=== PATIENT | male | born 1955 | race Caucasian/White ===

== ENCOUNTER → 2018-07-30 15:09 | Outpatient (CLI) | payer OTHER, SELFPAY ==
--- NOTE | 2018-07-30 | DI.RAD.S_ITS ---
PROCEDURE: XR KNEE LT 1TO2V INDICATIONS: LEFT KNEE PAIN TECHNIQUE: 3 .views of the knee were acquired. COMPARISON: [facility] [place], CR, KNEE SERIES RT, 07/30/2016, 7:58. FINDINGS: Bones: No fractures or dislocations. No suspicious bony lesions. Soft tissues: No joint effusion. No suspicious soft tissue calcifications. IMPRESSION: No definite radiographic abnormality. If pain persists, consider cross sectional imaging such as CT or MRI for further assessment. Dictated by: Markus Blue [facility] Interpreted: Claudine Caro MD on 07/30/2018 at 15:28 Approved by: Claudine Caro MD, PhD on 07/30/2018 at 17:07
== END ==
PROVIDERS: Family Provider Internal Medicine; PCP Internal Medicine; Visit Provider Internal Medicine
DX: M25.562 Pain in left knee (principal)
CPT/HCPCS: 73560

== ENCOUNTER → 2018-09-08 08:39 | Outpatient (CLI) | payer OTHER, SELFPAY ==
--- NOTE | 2018-09-08 | DI.MRI.S_ITS ---
PROCEDURE: MR KNEE LT WO CON INDICATIONS: Pain in left knee TECHNIQUE: Noncontrast sagittal PD fast spin echo and T2 fast spin echo with fat saturation, sagittal 3-D FLASH with fat saturation; coronal T1 spin echo and PD fast spin echo with fat saturation, and axial PD fast spin echo with fat saturation through the knee. COMPARISON: [facility], CR, XR KNEE LT 1TO2V, 07/30/2018, 15:18. [facility], CR, XR KNEE ARTHRITIC SERIES LT, 09/01/2018, 8:39. FINDINGS: Image quality: Excellent. Menisci: There is horizontal tear in the body and posterior horn of the medial meniscus. The lateral meniscus demonstrates normal morphology and internal signal. The meniscal root ligaments appear intact. Cruciate ligaments: There is mucoid degeneration of the anterior cruciate ligament. The posterior cruciate ligaments appears intact. Medial structures: The medial collateral ligament appears intact. The posterior oblique ligament, semimembranosus tendon insertions, oblique popliteal ligament, and meniscocapsular junction appear intact. Visualized portions of the pes anserinus tendons appear normal. No abnormal bursal fluid. Lateral structures: The lateral collateral ligament, long and short heads of the biceps femoris tendon appear intact. The popliteus tendon appears normal; the popliteofibular ligament appears intact. The posterosuperior and anteroinferior popliteomeniscal fascicles appear intact. The arcuate and fabellofibular ligaments appear intact, on either side of the lateral inferior geniculate artery. Iliotibial band appears normal. Anterior structures: The quadriceps and patellar tendons appear intact. Patellar alignment is normal. No femoral trochlear dysplasia or ventral trochlear prominence. No edema in the infrapatellar fat pad. Bones and cartilage: No bone marrow contusions or fractures. Mild tricompartmental cartilage thinning and signal degeneration. No full thickness cartilage fissures. Joint space: There is physiologic knee joint fluid. There is a moderate-sized Flores's cyst. Normal appearing synovial plicae are incidentally noted. IMPRESSION: 1. Horizontal tear involving in the body and posterior horn of the medial meniscus. 2. Mucoid degeneration of the anterior cruciate ligament. 3. Mild tricompartmental cartilage thinning and fibrillation. 4. Moderate sized Flores's cyst. Dictated by: Doug Martínez M.D. on 09/08/2018 at 10:10 Approved by: Doug Martínez M.D. on 09/08/2018 at 13:28
== END ==
PROVIDERS: PCP Internal Medicine; Visit Provider Orthopaedic Surgery
DX: M25.562 Pain in left knee (principal); S83.242A Other tear of medial meniscus, current injury, left knee, initial encounter; M71.22 Synovial cyst of popliteal space [Baker], left knee
CPT/HCPCS: 73721

== ENCOUNTER → 2019-01-20 11:39 | Outpatient (CLI) | payer OTHER, SELFPAY ==
--- NOTE | 2019-01-20 | DI.US.S_ITS ---
PROCEDURE: US ABDOMEN LIMITED INDICATIONS: EPIGASTRIC PAIN TECHNIQUE: Real-time focused scanning was performed of the abdomen, with image documentation. COMPARISON: [facility], US, ABDOMEN COMPLETE, 07/16/2016, 7:22. FINDINGS: Liver is diffusely increased in echogenicity. No focal hepatic abnormalities identified. Normal hepatic size. Predominantly simple hepatic cyst again seen within the left lobe liver with mild wall irregularity increased in size measuring 9.4 x 6.9 x 9.0 cm compared to 6.4 x 5.7 x 7.4 cm on prior examination. 1.6 cm simple cyst seen within the inferior right hepatic lobe. No gallstones identified. Normal gallbladder wall. No pericholecystic fluid. Negative sonographic Riddle sign. No biliary dilatation. Pancreas not visualized. IMPRESSION: 1. Increased hepatic echogenicity noted possibly related to hepatic steatosis but other sources of hepatocellular disease cannot be excluded. Recommend clinical correlation. 2. Increase in size of predominantly simple cyst within the left hepatic lobe with mild wall irregularity likely related to biliary radicles now measuring up to 9.4 cm. 3. 1.6 cm simple cyst within the inferior right hepatic lobe. Dictated by: Markus MARTÍNEZ Interpreted: Joe Wolff MD on 01/20/2019 at 13:05 Approved by: Joe Wolff M.D. on 01/20/2019 at 16:14
[2019-01-20 12:09] LABS: Add Manual Diff / Slide Review NO; Basophils Absolute Auto 100 /uL (0-100); Basophils Percent Auto 1.1 % (0-2); Eosinophils Absolute Auto 300 /uL (0-450); Eosinophils Percent Auto 4.7 % (2-4); Hematocrit 45.4 % (41-53); Hemoglobin 15.5 g/dL (13.5-17.5); Lymphocytes Absolute Auto 1500 /uL (1100-4500); Lymphocytes Percent Auto 25.5 % (25-40); Mean Corpuscular HGB Conc 34.1 % (30-36); Mean Corpuscular Hemoglobin 29.9 PG (26-34); Mean Corpuscular Volume 87.7 fL (80-100); Monocytes Absolute Auto 500 /uL (0-900); Monocytes Percent Auto 7.9 % (3-14); Neutrophils Absolute Auto 3500 /uL (1500-7000); Neutrophils Percent Auto 60.8 % (50-75); Platelet Count 164 X10^3/uL (150-400); Red Blood Cell Count 5.17 X10^6/uL (4.5-5.9); Red Cell Distribution Width 13.8 % (11.6-14.8); White Blood Cell Count 5.8 X10^3/uL (4.5-11.0)
[2019-01-20 12:18] LABS: Alanine Aminotransferase 69 IU/L (21-72); Alkaline Phosphatase 104 U/L (38-126); Aspartate Aminotransferase 43 IU/L (17-59); BUN Creatinine Ratio 15.5 (6-22); Bilirubin Total 0.7 mg/dL (0.2-1.3); Blood Urea Nitrogen 17 mg/dL (9-20); Calcium 9.8 mg/dL (8.4-10.2); Carbon Dioxide 31 mmol/L (22-32); Chloride 102 mmol/L (98-107); Estimated Glomerular Filt Rate > 60.0 mL/min (>60); Glucose 103 mg/dL (80-110); HEMOLYSIS < 15 (0-50); Lipase 89 U/L (23-300); Potassium 3.9 mmol/L (3.4-5.1); Sodium 141 mmol/L (137-145)
== END ==
PROVIDERS: PCP Internal Medicine; Visit Provider Internal Medicine
DX: R10.13 Epigastric pain (principal); K76.89 Other specified diseases of liver
CPT/HCPCS: 36415; 76705; 80048; 82247; 83690; 84075; 84450; 84460; 85025

== ENCOUNTER → 2019-03-04 15:36 | Outpatient (CLI) | payer OTHER, SELFPAY ==
[2019-03-04 17:35] LABS: Prostate Specific Antigen 1.99 ng/mL (0.10-4.00)
== END ==
PROVIDERS: Family Provider Internal Medicine; PCP Internal Medicine; Visit Provider Urology
DX: N40.1 Benign prostatic hyperplasia with lower urinary tract symptoms (principal)
CPT/HCPCS: 36415; 84153

== ENCOUNTER → 2020-03-15 09:04 | Outpatient (CLI) | payer MEDICARE, OTHER, SELFPAY ==
[2020-03-16 09:32] LABS: COVID19 Sendout Not Detected (Not Detect)
== END ==
PROVIDERS: Family Provider Internal Medicine; PCP Nurse Practitioner Family; Visit Provider Physician Assistant
DX: Z11.59 Encounter for screening for other viral diseases (principal)
CPT/HCPCS: 87635

== ENCOUNTER 2020-03-20 07:28 | Emergency (ER) | payer MEDICARE, OTHER, SELFPAY ==
[2020-03-20 07:37] VITALS: BP 147/99; PULSE 60; RESP 19; TEMP 36.3; O2SAT 95; BMI 41.9
--- NOTE | 2020-03-20 08:13 | ED_ITS ---
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 He says 2 nights ago he was actually lying in bed when he felt something fall into his eye. He thought it was an eyelash. He actually irrigated out with a whole L of saline initially got better and then started becoming irritated again he irrigated it out again. He feels like something is up under his eyelid any is unable to invert his eyelid himself. He denies any photosensitivity node blurry vision or double vision. He wears reading glasses. MD chief complaint: eye pain and eye redness Onset (ago): day(s) Onset description: sudden Duration: constant Location: right eye Eye Symptoms: redness and foreign body sensation Related Data Home Medications Medication Instructions Recorded Confirmed alfuzosin 10 mg PO QDAY #0 07/02/16 10/01/18 atorvastatin [Lipitor] 20 mg PO HS #0 07/02/16 10/01/18 diphenhydramine HCl [Benadryl 25 mg PO QHS #0 07/02/16 10/01/18 Allergy] omeprazole 20 mg PO QDAY #0 07/02/16 10/01/18 losartan 100 1 tab PO DAILY 03/31/18 10/01/18 mg-hydrochlorothiazide 25 mg tablet Resmed Airsense 10 CPAP #1 ea 10/01/18 10/01/18 Allergies Allergy/AdvReac Type Severity Reaction Status Date / Time No Known Drug Allergies Allergy Unverified 03/15/20 09:02 Review of Systems Review of Systems ROS Unobtainable: All systems reviewed & are unremarkable except as noted in HPI and below Constitutional Constitutional: Denies chills, Denies fever(s), Denies lethargy and Denies weakness Eyes Eyes: Reports as per HPI, Denies blind spots, Denies blurry vision, Denies exophthalmos, Denies change in vision, Denies loss of peripheral vision and Denies photophobia Cardiovascular Cardiovascular: Denies chest pain, Denies irregular heart rhythm, Denies lightheadedness, Denies palpitations, Denies dyspnea, Denies dyspnea on exertion and Denies orthopnea Respiratory Respiratory: Denies cough, Denies dyspnea, Denies dyspnea on exertion and Denies wheezing Gastrointestinal Gastrointestinal: Denies abdominal pain, Denies change in bowel habits, Denies diarrhea, Denies nausea and Denies vomiting Musculoskeletal Musculoskeletal: Denies back pain and Denies muscle weakness Integumentary/Breasts Skin/Breast: Denies pruritus, Denies erythema, Denies rash and Denies wounds Neurologic Neurologic: Denies weakness Endocrine Endocrine: Denies palpitations Allergic/Immunologic Allergic/Immunologic: Denies wheezing Patient History Medical History Cephalgia (Inactive) Corneal abrasion, left (Inactive) Dehydration (Inactive) Febrile illness (Inactive) Hypertension (Chronic) Left knee pain (Acute) Obesity (BMI 30-39.9) (Chronic) Obstructive sleep apnea of adult (Chronic) Rhinitis, nonallergic, chronic (Chronic) Sinusitis (Inactive) Snoring (Inactive) Surgical History Meniscus degeneration (Acute) Social History marital status: details: tru Ramirez, lives in [place] household members: spouse lives independently: Yes caregiver/support person: No housing: house education level: other 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 HEENT: Head atraumatic,EOMI, pupils reactive, face symmetric, moist mucous membranes EYES: EOMI, NEETA Right eye was treated with proparacaine, stained with fluorescein. No dye uptake. No foreign body. Eyelid was inverted no foreign body seen. Irrigated with normal saline flush CARDIOVASCULAR: Regular rate and rhythm without murmurs, rubs or gallops. RESPIRATORY: Breath sounds equal bilaterally, no wheezes rales or rhonchi. EXTREMITIES: Normal range of motion, no clubbing or edema. Neurovascularly intact NEUROLOGICAL: Alert and oriented x4.Normal gait and speech. SKIN: Warm, dry, no laceration, no petechiae, no rashes or lesions. Course Orders Ordered: Discontinued Medications Fluorescein Sodium (Ful-Karyn) 1 mg EYE-BOTH NOW ONE Stop: 03/20/20 08:14 Last Admin: 03/20/20 08:19 Dose: 1 mg Documented by: DAVID Proparacaine HCl (Parcaine 0.5% Ophth Adriana) 1 drops EYE-LEFT NOW ONE Stop: 03/20/20 08:14 Last Admin: 03/20/20 08:19 Dose: 1 drop Documented by: DAVID Vital Signs Vital signs: Vital Signs - 8 hr 03/20/20 07:37 Temperature 97.4 F L Pulse Rate 60 Respiratory Rate 19 Blood Pressure 147/99 H Pulse Oximetry 95 MDM - Eye Problem MDM Narrative Medical decision making narrative: No foreign bodies identified no dye uptake no corneal abrasion. visual acuity in nursing note Discharge Plan Departure Patient Disposition: Home Clinical Impression: Eye abnormality Discharge Date/Time: 03/20/20 08:39 Instructions: DI for Eye Pain Activity Restrictions/Additional Instructions: *You have been diagnosed with right eye a irritation *What to do: At this time no corneal abrasion or foreign body is seen. *Continue to take medications as directed *Follow up with your primary care provider in 2-3 days *Return to ER if you should have change in vision, worsening pain, any new, worsening or concerning symptoms Prescriptions: No Action diphenhydramine HCl [Benadryl Allergy] 25 MG tablet 25 mg PO QHS Qty: 0 RF: 0 atorvastatin [Lipitor] 20 MG tablet 20 mg PO HS Qty: 0 RF: 0 omeprazole 20 MG capsule,delayed release(DR/EC) 20 mg PO QDAY Qty: 0 RF: 0 alfuzosin 10 MG tablet extended release 24 hr 10 mg PO QDAY Qty: 0 RF: 0 losartan-hydrochlorothiazide 100-25 mg tablet 1 tab PO DAILY RF: 0 (DME) Resmed Airsense 10 CPAP Qty: 1 RF: 0 Referrals: Satish Espitia MD [Primary Care Provider] -
[2020-03-20] MEDS: PROPARACAINE 0.5% OPHTH SOL 1 DROPS EYE-LEFT (08:19)
[2020-03-20] MEDS: FLUORESCEIN 1 MG STRIP EYE-BOTH (08:19)
== END 2020-03-20 08:39 | disposition home or self-care (01) ==
PROVIDERS: Emergency Provider Emergency Medicine; Family Provider Internal Medicine; PCP Family Medicine
DX: H53.9 Unspecified visual disturbance (principal); Q15.9 Congenital malformation of eye, unspecified
CPT/HCPCS: 99282

== ENCOUNTER 2021-02-04 07:53 | Emergency (ER) | payer MEDICARE, OTHER, SELFPAY ==
[2021-02-04] VITALS (12 sets, daily range): BP systolic 132–165; BP diastolic 58–90; PULSE 50–59; RESP 16; TEMP 36.6; O2SAT 95–97; BMI 37.0
[2021-02-04 08:28] LABS: Add Manual Diff / Slide Review NO; Basophils Absolute Auto 0 /uL (0-100); Basophils Percent Auto 0.5 % (0-2); Eosinophils Absolute Auto 400 /uL (0-450); Eosinophils Percent Auto 5.6 % (2-4); Hematocrit 46.3 % (41-53); Hemoglobin 15.7 g/dL (13.5-17.5); Lymphocytes Absolute Auto 1500 /uL (1100-4500); Lymphocytes Percent Auto 20.7 % (25-40); Mean Corpuscular HGB Conc 33.9 % (30-36); Mean Corpuscular Hemoglobin 30.2 PG (26-34); Monocytes Absolute Auto 600 /uL (0-900); Monocytes Percent Auto 8.1 % (3-14); Neutrophils Absolute Auto 4800 /uL (1500-7000); Neutrophils Percent Auto 65.1 % (50-75); Platelet Count 156 X10^3/uL (150-400); Red Cell Distribution Width 14.1 % (11.6-14.8); White Blood Cell Count 7.3 X10^3/uL (4.5-11.0)
[2021-02-04 08:36] LABS: Alanine Aminotransferase 42 IU/L (<50); Albumin 4.4 g/dL (3.5-5.0); Albumin Globulin Ratio 1.5 (1.0-2.8); Alkaline Phosphatase 85 U/L (38-126); Aspartate Aminotransferase 36 IU/L (17-59); BUN Creatinine Ratio 16.5 (6-22); Bilirubin Total 0.9 mg/dL (0.2-1.3); Blood Urea Nitrogen 19 mg/dL (9-20); Carbon Dioxide 31 mmol/L (22-32); Chloride 106 mmol/L (98-107); Estimated Glomerular Filt Rate > 60.0 mL/min (>60); Glucose 113 mg/dL (80-110); HEMOLYSIS 18 (0-50); Lipase 101 U/L (23-300); Potassium 3.9 mmol/L (3.4-5.1); Sodium 143 mmol/L (137-145); Total Protein 7.4 g/dL (6.3-8.2)
--- NOTE | 2021-02-04 08:58 | ED.ABDPAIN ---
HPI - Abdominal Pain General Chief Complaint: Abdominal Pain Stated Complaint: stomach pain Time Seen by Provider: 02/04/21 08:39 Source: patient Mode of arrival: Ambulatory Limitations: no limitations History of Present Illness HPI narrative: This is a 65-year-old male who comes in with complaint of several days of epigastric pain which is becoming more persistent and constant. Patient states the over the last 3-4 days it has been gradually worsening and has since become constant. States it was about 4-5 last night and has increased to 6 range today. Patient states it seems to be epigastric without any radiation elsewhere. Does not go to his chest, he denies any pain to his back. Denies any pain to his lower abdomen. He has not had any right upper quadrant tenderness. Patient has had nausea but no vomiting. He had grayish stools recently but has had regular formed bowel movements. He denies any melena hematochezia. Patient denies any fevers. No chest pain or shortness of breath. Patient states 2 years ago he had similar symptoms but mild. He had an EGD which showed some gastric wall irritation but was otherwise negative. He had gallbladder ultrasound which was normal. He takes omeprazole daily and notes that symptoms are worsened with ingestion of food. Patient does take multiple medications for blood pressure including clonidine, amlodipine, losartan and hydrochlorothiazide. He is on alfuzosin, Lipitor and continues to take omeprazole 20 mg daily, Benadryl and Pepcid as needed. 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 He has not had any prior surgeries. He has had a reaction to statins. No tobacco, no alcohol or illicit. Related Data Home Medications Medication Instructions Recorded Confirmed alfuzosin 10 mg tablet,extended 10 mg PO QDAY #0 07/02/16 10/01/18 release 24 hr atorvastatin 20 mg tablet (Lipitor) 20 mg PO HS #0 07/02/16 10/01/18 diphenhydramine HCl 25 mg tablet 25 mg PO QHS #0 07/02/16 10/01/18 (Benadryl Allergy) omeprazole 20 mg capsule,delayed 20 mg PO QDAY #0 07/02/16 10/01/18 release losartan 100 1 tab PO DAILY 03/31/18 10/01/18 mg-hydrochlorothiazide 25 mg tablet Resmed Airsense 10 CPAP #1 ea 10/01/18 10/01/18 Previous Rx's Medication Instructions Recorded hydrocodone 5 mg-acetaminophen 325 1 tab PO QID PRN #10 tab 02/04/21 mg tablet ondansetron 4 mg disintegrating 4 mg PO QID PRN #5 tab 02/04/21 tablet Allergies Allergy/AdvReac Type Severity Reaction Status Date / Time lisinopril Allergy Severe Muscle Pain Verified 02/04/21 08:08 Review of Systems Review of Systems ROS Unobtainable: All systems reviewed & are unremarkable except as noted in HPI and below Patient History Medical History (Updated 02/04/21 @ 10:22 by Bambi Roldan DO) Cephalgia Corneal abrasion, left Dehydration Febrile illness Hypertension Left knee pain Obesity (BMI 30-39.9) Obstructive sleep apnea of adult Rhinitis, nonallergic, chronic Sinusitis Snoring Surgical History Meniscus degeneration Social History marital status: details: tru Ramirez, lives in [place] household members: spouse lives independently: Yes caregiver/support person: No housing: house education level: other 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 Patient appears uncomfortable. HEENT: Head normocephalic, atraumatic, EOMI, pupils reactive, face symmetric, moist mucous membranes NECK: Supple, full range of motion CARDIOVASCULAR: Regular rate and rhythm without murmurs, rubs or gallops. RESPIRATORY: Breath sounds equal bilaterally, no wheezes rales or rhonchi. ABDOMEN: Soft, positive for epigastric tenderness. Normoactive bowel sounds all 4 quadrants. No guarding or rebound, rigidity, no mass, nondistended. : No CVA tenderness EXTREMITIES: Normal range of motion, no edema bilateral lower extremities. Neurovascularly intact NEUROLOGICAL: Cranial nerves II through XII grossly intact. Moving all extremities SKIN: Warm, dry, no petechiae, no rashes or lesions. Initial Vital Signs Initial Vital Signs: Vital Signs Temperature 97.9 F 02/04/21 07:55 Pulse Rate 59 L 02/04/21 07:55 Respiratory Rate 16 02/04/21 07:55 Blood Pressure 165/90 H 02/04/21 07:55 Pulse Oximetry 95 02/04/21 07:55 Course Orders Ordered: Discontinued Medications Al Hydrox/Mg Hydrox/Simethicone 20 ml/ Lidocaine HCl 15 ml 0 ml PO NOW ONE Stop: 02/04/21 09:14 Last Admin: 02/04/21 09:27 Dose: 35 ml Documented by: GARDENIA Sodium Chloride (Normal Saline 0.9%) 1,000 mls @ 150 mls/hr IV CONT GUIDO Last Infusion: 02/04/21 11:27 Dose: 0 mls/hr Documented by: Admin: 02/04/21 09:27 Dose: 150 mls/hr Documented by: GARDENIA Morphine Sulfate (Morphine 4 Mg/Ml Inj) 4 mg IV NOW ONE Stop: 02/04/21 11:05 Last Admin: 02/04/21 11:16 Dose: 4 mg Documented by: GARDENIA Ondansetron HCl (Ondansetron 4 Mg/2 Ml Inj) 4 mg IV NOW ONE Stop: 02/04/21 11:05 Last Admin: 02/04/21 11:16 Dose: 4 mg Documented by: GARDENIA Pantoprazole Sodium (Pantoprazole 40 Mg Vial) 40 mg IV NOW ONE Stop: 02/04/21 09:14 Last Admin: 02/04/21 09:27 Dose: 40 mg Documented by: GARDENIA Consultations Consultation #1: Dr. Olson, reviewed patient images and findings today. Plan for outpatient follow-up in the office with Dr. Drake which will patient be seen a little bit sooner. Vital Signs Vital signs: Vital Signs - 8 hr 02/04/21 11:30 Pulse Rate 50 L Blood Pressure 132/63 Pulse Oximetry 96 MDM - Abdominal Pain Lab Data Result diagrams: 02/04/21 08:09 02/04/21 08:09 Labs: Lab Results 02/04/21 02/04/21 02/04/21 Range/Units 08:09 08:09 08:09 WBC 7.3 (4.5-11.0) X10^3/uL RBC 5.20 (4.5-5.9) X10^6/uL Hgb 15.7 (13.5-17.5) g/dL Hct 46.3 (41-53) % MCV 89.0 (80-100) fL MCH 30.2 (26-34) PG MCHC 33.9 (30-36) % RDW 14.1 (11.6-14.8) % Plt Count 156 (150-400) X10^3/uL Neut % (Auto) 65.1 (50-75) % Lymph % (Auto) 20.7 L (25-40) % [place] % (Auto) 8.1 (3-14) % Eos % (Auto) 5.6 H (2-4) % Baso % (Auto) 0.5 (0-2) % Neut # (Auto) 4800 (7039-7526) /uL Lymph # (Auto) 1500 (1270-9514) /uL [place] # (Auto) 600 (0-900) /uL Eos # (Auto) 400 (0-450) /uL Baso # (Auto) 0 (0-100) /uL Sodium 143 (137-145) mmol/L Potassium 3.9 (3.4-5.1) mmol/L Chloride 106 (98-107) mmol/L Carbon Dioxide 31 (22-32) mmol/L BUN 19 (9-20) mg/dL Creatinine 1.15 (0.66-1.25) mg/dL Estimated GFR > 60.0 (>60) mL/min BUN/Creatinine Ratio 16.5 (6-22) Glucose 113 H (80-110) mg/dL Calcium 10.0 (8.4-10.2) mg/dL Total Bilirubin 0.9 (0.2-1.3) mg/dL AST 36 (17-59) IU/L ALT 42 (<50) IU/L Alkaline Phosphatase 85 (38-126) U/L Total Creatine Kinase 144 (55-170) U/L CK-MB (CK-2) 2.28 (<2.37) ng/mL CK-MB (CK-2) Rel Index 1.6 (1.5-5.0) % Troponin I 0.022 (0.01-0.034) ng/mL Total Protein 7.4 (6.3-8.2) g/dL Albumin 4.4 (3.5-5.0) g/dL Globulin 3.0 (1.7-4.1) g/dL Albumin/Globulin Ratio 1.5 (1.0-2.8) Lipase 101 (23-300) U/L Point of care testing: Urine Dip Bedside Urine Glucose Negative Bedside Urine Bilirubin - Negative Bedside Urine Ketone - Negative Urine Specific [place] 1.015 Bedside Urine Occult Blood - Negative Bedside Urine pH 6.0 Bedside Urine Protein - Negative Bedside Urine Urobilinogen - Negative Bedside Urine Nitrite - Negative Bedside Urine Leukocytes - Negative Esterase Imaging Data CT scan - abdomen/pelvis: Radiologist's Impression: [address] [id number] Scan ReportSigned Patient: Eric Head WMR#: [id number]: 5Acct:[id number]/Sex: 65 / MDate of Service: 02/04/21Loc: EDAccession Number: [id number] Procedure: CT abdomen pelvis w con Ordering Provider: Bambi Roldan D.O. PROCEDURE: CT ABDOMEN PELVIS W CON INDICATIONS: epigastric pain with palpation TECHNIQUE: After the administration of IV contrast, axial sections were acquired from the lung bases to the pubic symphysis. Coronal and sagittal reformats were performed. For radiation dose reduction, the following was used: automated exposure control, adjustment of mA and/or kV according to patient size. COMPARISON: [facility], CT, ABDOMEN/PELVIS WITH CONTRAST, 02/04/2016, 2:22. [facility], US, US ABDOMEN LIMITED, 01/20/2019, 12:13. FINDINGS: Image quality: Excellent. Lung bases: Unremarkable. Heart: No significant findings. ABDOMEN: Liver: Within the left liver, this patient has a large simple appearing nonenhancing cyst that measures up to 10.4 cm. This has grown compared to 2016 when it measured up to 7.3 cm. Additional smaller cysts can be seen, including within the right liver inferiorly measuring up to 1.7 cm. Gallbladder: Unremarkable. Biliary ducts: Unremarkable. Pancreas: Unremarkable. Spleen: Unremarkable. Adrenal Glands: Unremarkable. Kidneys and Ureters: Unremarkable. Stomach and Bowel: Stomach, small bowel loops, and colon are unremarkable. A normal appendix is incidentally noted. Peritoneum: No abnormal intraperitoneal fluid. No free air. Ventral Wall: No hernia. Abdominal Nodes: No retroperitoneal or mesenteric adenopathy by size criteria. Vessels: Aorta and inferior vena cava are normal in size. PELVIS: Pelvic Organs: Unremarkable. Bladder: Unremarkable. Pelvic Nodes: No enlarged lymph nodes. Miscellaneous: There is a fat containing left inguinal hernia. Bones: Degenerative changes are seen throughout, which are worst at the L4-L5 level. Mild levoconvex scoliotic curvature is noted. IMPRESSION: This patient has a large left liver cyst, which has increased in size compared to 2016. No additional significant epigastric abnormalities can be seen. Incidental note is made of: Normal appendix Focal L4-L5 degenerative change Fat containing left inguinal hernia Dictated by: Darien Smith M.D. on 02/04/2021 at 9:10 Approved by: Darien Smith M.D. on 02/04/2021 at 9:13 ECG Data Attestation: I personally reviewed and interpreted this ECG as follows: Prior ECG tracings: available for review Interpretation: Sinus bradycardia rate of 52 [place] 196 QRS of 100 QTC of 410. T wave in lead 3 with T-wave change in 2 3 AVF. No elevation noted. No depression noted. Patient has prior EKG from 12/06/2019 which appears similar. MDM Narrative Medical decision making narrative: This is a 65-year-old male comes in with complaint of epigastric pain which has been worsening over the past 2 weeks. Patient states it seems to be clearly worsened with food. He is not having any other obvious cardiac symptoms. EKG appears similar to with greater than 12 hours of symptoms with no acute EKG changes and negative troponin. Patient's abdominal labs are negative including his lipase. CT abdomen pelvis was obtained is he is tender over the epigastric region with intermittent symptoms over the years. Patient CT shows a large hepatic cyst which is simple but has been growing over the last couple years as well as several some other small cyst. This was discussed with Dr. Olson from General surgery. He would like to follow-up with the patient in the clinic and felt he would be able to see Dr. Drake sooner. Patient has had scopes before with Dr. Yates in the past and we discussed also arranging this for evaluation. Patient was given prescription for short term narcotic prescription, as well as to increase his omeprazole. All questions answered. Return precautions discussed. Discharge Plan Departure Patient Disposition: Home Clinical Impression: Hepatic cyst, Epigastric pain Instructions: DI for Epigastric Pain Activity Restrictions/Additional Instructions: Follow up with general surgery for evaluation, below is referral. Call Saturday morning for follow-up regarding your hepatic cyst. You have a large cyst in the left liver that is 10.4 cm. There are some additional smaller cysts seen on the right liver the maximum size is 1.7 cm these. The rest of your CT shows no acute changes today. This may be the cause of your pain today but I would follow up for EGD as well. It may be helpful to increase your omeprazole to 40 mg daily. Take Zofran 1 tablet every 6 hours as needed for nausea. Take pain medication as prescribed. This medication can make you sleepy do not drive, perform hazardous activities or make any major decisions while taking it. This medication will make you constipated please take a stool softener once to twice daily until stools are soft and regular. Prescription sent to [facility] in [place]. Please return for fevers, new chest pain, shortness of breath, rapidly worsening abdominal pain, persistent vomiting, black or bloody stools, lightheadedness or passing out, new or worsening distension or swelling of your abdomen or other new or concerning symptoms. Prescriptions: New ondansetron 4 mg tablet,disintegrating 4 mg PO QID PRN (Reason: nausea and vomiting) Qty: 5 RF: 0 hydrocodone-acetaminophen 5-325 mg tablet 1 tab PO QID PRN (Reason: pain) Qty: 10 RF: 0 No Action diphenhydramine HCl [Benadryl Allergy] 25 MG tablet 25 mg PO QHS Qty: 0 RF: 0 atorvastatin [Lipitor] 20 MG tablet 20 mg PO HS Qty: 0 RF: 0 omeprazole 20 MG capsule,delayed release(DR/EC) 20 mg PO QDAY Qty: 0 RF: 0 alfuzosin 10 MG tablet extended release 24 hr 10 mg PO QDAY Qty: 0 RF: 0 losartan-hydrochlorothiazide 100-25 mg tablet 1 tab PO DAILY RF: 0 (DME) Resmed Airsense 10 CPAP Qty: 1 RF: 0 Referrals: Efe Drake MD [Physician] - Satish Espitia MD [Primary Care Provider] -
[2021-02-04 09:10] LABS: Creatine Kinase 144 U/L (55-170)
--- NOTE | 2021-02-04 09:13 | DI.CT.S_ITS ---
PROCEDURE: CT ABDOMEN PELVIS W CON INDICATIONS: epigastric pain with palpation TECHNIQUE: After the administration of IV contrast, axial sections were acquired from the lung bases to the pubic symphysis. Coronal and sagittal reformats were performed. For radiation dose reduction, the following was used: automated exposure control, adjustment of mA and/or kV according to patient size. COMPARISON: [facility], CT, ABDOMEN/PELVIS WITH CONTRAST, 02/04/2016, 2:22. [facility], US, US ABDOMEN LIMITED, 01/20/2019, 12:13. FINDINGS: Image quality: Excellent. Lung bases: Unremarkable. Heart: No significant findings. ABDOMEN: Liver: Within the left liver, this patient has a large simple appearing nonenhancing cyst that measures up to 10.4 cm. This has grown compared to 2016 when it measured up to 7.3 cm. Additional smaller cysts can be seen, including within the right liver inferiorly measuring up to 1.7 cm. Gallbladder: Unremarkable. Biliary ducts: Unremarkable. Pancreas: Unremarkable. Spleen: Unremarkable. Adrenal Glands: Unremarkable. Kidneys and Ureters: Unremarkable. Stomach and Bowel: Stomach, small bowel loops, and colon are unremarkable. A normal appendix is incidentally noted. Peritoneum: No abnormal intraperitoneal fluid. No free air. Ventral Wall: No hernia. Abdominal Nodes: No retroperitoneal or mesenteric adenopathy by size criteria. Vessels: Aorta and inferior vena cava are normal in size. PELVIS: Pelvic Organs: Unremarkable. Bladder: Unremarkable. Pelvic Nodes: No enlarged lymph nodes. Miscellaneous: There is a fat containing left inguinal hernia. Bones: Degenerative changes are seen throughout, which are worst at the L4-L5 level. Mild levoconvex scoliotic curvature is noted. IMPRESSION: This patient has a large left liver cyst, which has increased in size compared to 2016. No additional significant epigastric abnormalities can be seen. Incidental note is made of: Normal appendix Focal L4-L5 degenerative change Fat containing left inguinal hernia Dictated by: Darien Smith M.D. on 02/04/2021 at 9:10 Approved by: Darien Smith M.D. on 02/04/2021 at 9:13
[2021-02-04 09:23] LABS: Troponin I 0.022 ng/mL (0.01-0.034)
[2021-02-04 09:26] LABS: CKMB % Relative Index 1.6 % (1.5-5.0); Creatine Kinase MB 2.28 ng/mL (<2.37)
[2021-02-04] MEDS: SODIUM CHLORIDE 0.9% 1,000 ML 150 ML IV (09:27)
[2021-02-04] MEDS: MAG HYDROX/ALUMINUM/SIMETH SUS 20 ML, LIDOCAINE VISCOUS 2% 15 ML PO (09:27)
[2021-02-04] MEDS: PANTOPRAZOLE 40 MG VIAL IV (09:27)
[2021-02-04] MEDS: ONDANSETRON 4 MG/2 ML INJ IV (11:16)
[2021-02-04] MEDS: MORPHINE 4 MG/ML INJ IV (11:16)
== END 2021-02-04 11:46 | disposition home or self-care (01) ==
PROVIDERS: Emergency Provider Emergency Medicine; Family Provider Internal Medicine; PCP Family Medicine
DX: K76.89 Other specified diseases of liver (principal); R10.13 Epigastric pain
CPT/HCPCS: 36415; 74177; 80053; 81003; 82550; 82553; 83690; 84484; 85025; 93005; 93010; 96361; 96374; 96375; 99284; C9113; J2270; J2405; Q9967

== ENCOUNTER → 2021-04-17 08:34 | Outpatient (CLI) | payer MEDICARE, OTHER, SELFPAY ==
[2021-04-17 14:35] LABS: COVID19 -Nasal RAPID Negative (Negative)
== END ==
PROVIDERS: Family Provider Internal Medicine; PCP Family Medicine; Visit Provider Nurse Practitioner Family
DX: Z20.822 Contact with and (suspected) exposure to COVID-19 (principal)
CPT/HCPCS: 87635; C9803

== ENCOUNTER 2021-04-18 06:40 | Day surgery (SDC) | payer MEDICARE, OTHER, SELFPAY ==
[2021-04-18] VITALS (7 sets, daily range): BP systolic 106–132; BP diastolic 37–71; PULSE 44–55; RESP 11–20; TEMP 36.5–37.1; O2SAT 14–98; BMI 35.5
--- NOTE | 2021-04-18 | PATH_ITS ---
[facility] Accession Number: [id number] . 01 Material submitted: . gastrointestinal site - ANTRUM BIOPSY . 01 Clinical history: . SDC . 02 Diagnosis: Antrum, Biopsy: Portions of gastric antral mucosa with features of reactive gastropathy and mild chronic inflammation. Negative for Helicobacter organisms by immunohistochemistry. Negative for intestinal metaplasia. Negative for dysplasia or malignancy. MRV 04/21/2021 1432 Local . 02 Electronically signed: . Mckenzie Jiménez MD, Pathologist NPI- [id number] . 01 Gross description: . ANTRUM BIOPSY: Received in formalin are 2 fragment(s) of perez, soft tissue measuring 0.3 x 0.2 x 0.2 cm to 0.1 x 0.1 x 0.1 cm submitted entirely in 1 cassette(s) /QBJ 04/19/2021 0728 Local . 02 Microscopic: . An immunohistochemical stain was performed to evaluate for Helicobacter organisms and is negative. The control stain showed appropriate reactivity. . * This test was developed and its performance characteristics determined by [facility]. It has not been cleared or approved by the U.S. Food and Drug Administration. The FDA has determined that such clearance or approval is not necessary. This test is used for clinical purposes. It should not be regarded as investigational or for research. . 02 Pathologist provided ICD-10: R10.13 . 02 CPT . 666841, [id number] Performed at: 01 [facility] [address] [place] [address], [place], [place] [id number] MD Wil Jj MD Phone: [phone] Performed at: 02 [facility] [place] [address] [place], [place] [id number] MD Ne Cortes MD Phone: [phone]
[2021-04-18] MEDS: SODIUM CHLORIDE 0.9% 1,000 ML 84 ML IV (07:27)
--- NOTE | 2021-04-18 07:55 | PM.HP.1 ---
History of Present Illness History of Present Illness Date Patient Seen: 04/18/21 Time Patient Seen: 07:55 Chief complaint: SDC Narrative: I reviewed the note from Dr. Yates. There has been some improvement on b.i.d. PPI. Patient History Medical History Cephalgia Corneal abrasion, left Dehydration Febrile illness Hypertension Left knee pain Obesity (BMI 30-39.9) Obstructive sleep apnea of adult Rhinitis, nonallergic, chronic Sinusitis Snoring Surgical History Meniscus degeneration Family & Social History Social History: household members spouse lives independently Yes caregiver/support person No Tobacco & Substance use: Smoking Status Never smoker alcohol intake never Substance Use Type does not use Meds Home Medications and Allergies Home Medications Medication Instructions Recorded Confirmed Type alfuzosin 10 mg tablet,extended 10 mg PO QDAY #0 07/02/16 04/18/21 History release 24 hr atorvastatin 20 mg tablet (Lipitor) 20 mg PO HS #0 07/02/16 04/18/21 History diphenhydramine HCl 25 mg tablet 25 mg PO QHS #0 07/02/16 04/18/21 History (Benadryl Allergy) omeprazole 20 mg capsule,delayed 20 mg PO QDAY #0 07/02/16 04/18/21 History release losartan 100 1 tab PO DAILY 03/31/18 04/18/21 History mg-hydrochlorothiazide 25 mg tablet Resmed Airsense 10 CPAP #1 ea 10/01/18 10/01/18 History clonidine HCl 0.2 mg tablet 0.2 mg PO BID 04/18/21 04/18/21 History hydrochlorothiazide 25 mg tablet 25 mg PO DAILY 04/18/21 04/18/21 History Allergies Allergy/AdvReac Type Severity Reaction Status Date / Time lisinopril AdvReac Severe Muscle Pain Verified 04/18/21 07:25 Review of Systems Review of Systems ROS: Yes All systems reviewed with the patient and are negative except as otherwise documented Exam Vital Signs (past 8 hours): - 04/18/21 07:15 Temperature 98.1 F Pulse Rate 55 L Respiratory Rate 20 Blood Pressure 132/71 Pulse Oximetry 98 Oxygen Delivery Method Room Air Const General: cooperative and comfortable Orientation: alert HENMT Head: normocephalic Ears: external ears normal Nose: external nose normal Face and sinus: normal facial exam Mouth: oral mucosae normal Eyes General: appearance normal, both eyes and all related structures Neck Neck: normal visual inspection Chest Chest: normal inspection of the chest Resp Effort & Inspection: normal respiratory effort Auscultation: clear to auscultation bilaterally Cardio Rate: regular rate Rhythm: regular rhythm Heart Sounds: no murmurs GI Inspection: normal to inspection Palpation: soft and No tender Auscultation: normal bowel sounds Skin General: no rashes or lesions noted and No jaundice Neuro General: patient alert and moves all extremities Cognition: normal cognition Speech: speech normal Extrem General: no pedal edema Psych Appearance: grossly normal Assessment & Plan Assessment & Plan narrative: Epigastric pain some improvement on b.i.d. PPI. Repeat EGD is pursued today. Time Spent With Patient Critical Care time: I spent a total of [] minutes of critical care time on this patient's care today; this time is exclusive of procedural time.
--- NOTE | 2021-04-18 07:57 | PM.PREOP ---
Pre-operative Note COVID-19 COVID-19 status: Negative Result date/Date tested (Pos, Neg/Pending): 04/17/21 Interval Note History & Physical reviewed/Exam performed by Physician: Yes Changes to H&P: Yes ASA Class (for procedural sedation): II
--- NOTE | 2021-04-18 08:08 | P.OP.EGD_ITS ---
Operative Date/Time/Diagnoses Date of procedure: 04/18/21 Time of procedure: 08:08 Pre-op diagnosis: Epigastric pain Post-op diagnosis: same Procedure & Clinicians Study performed: EGD with biopsy Same procedure as scheduled: Yes Indications: Epigastric pain Surgeon: Quirino Edwards Procedure Notes SCOAP/Timeout: Done Procedure in detail: After the risks and benefits were explained, written and verbal informed consent was obtained. The patient was brought into the procedure room and placed into the left lateral decubitus position. Please see nurse necktie centralizing machine operator notes for sedation details. The scope was introduced into the mouth through the bite block and advanced under direct visualization to the 2nd portion of the duodenum. The scope was slowly withdrawn carefully examining the mucosa for any defects or lesions. Retroflexed views were accomplished in the stomach. The stomach was decompressed, the scope was then removed from the patient who tolerated the procedure well. Sedation minutes: 6 Complications: none Impression: 1. Duodenum: No pathology appreciated from the bulb through the 2nd portion. 2. Stomach: No ulcers erosions mass lesions are outlet obstruction. Retroflexed views of the LES were unremarkable. There was mild streaky gastropathy appreciated in the antrum and therefore antral biopsies were acquired for confirmation and exclusion of H pylori. 3. Esophagus: The squamocolumnar junction was a little variable right at the GE junction which was 45 cm from the incisors. No visual suggestion of Grossman's. No active inflammation. There was evidence of some old well healed inflammation at the level of the GE junction. This would have been rated at LA grade A. No strictures no mass lesions the remainder of the esophagus was unremarkable. Endoscopic diagnosis 1. Gastropathy 2. Healed recent esophagitis Post-procedure Plan for aftercare: 1. Await histopathology 2. Continue PPI and taper back down to a single daily dose as able. 3. Follow up Dr. Yates in regards liver cyst. Disposition: PACU
== END 2021-04-18 08:46 | disposition home or self-care (01) ==
PROVIDERS: Family Provider Internal Medicine; PCP Family Medicine; Referring Provider Internal Medicine Gastroenterology; Visit Provider Internal Medicine Gastroenterology
PROC: 0DJ08ZZ Inspection of Upper Intestinal Tract, Via Natural or Artificial Opening Endoscopic (ICD-10-PCS; CPT 43235; principal; 2021-04-18 08:00)
DX: K29.50 Unspecified chronic gastritis without bleeding (principal); K31.9 Disease of stomach and duodenum, unspecified; Z87.19 Personal history of other diseases of the digestive system
CPT/HCPCS: 43239; J2704

== ENCOUNTER → 2021-04-24 15:20 | Outpatient (CLI) | payer MEDICARE, OTHER, SELFPAY ==
--- NOTE | 2021-04-24 | DI.RAD.S_ITS ---
PROCEDURE: XR FINGER LT MIN 2V INDICATIONS: PAIN TECHNIQUE: AP hand, 2 views of the 1st finger(s) acquired. COMPARISON: None. FINDINGS: Bones: No fractures or dislocations. No suspicious bony lesions. First carpometacarpal joint space narrowing and marginal osteophyte noted. No lytic or blastic lesion Soft tissues: No suspicious soft tissue calcifications. IMPRESSION: 1st carpometacarpal joint osteoarthritis Approved by: Obed Abraham M.D. on 04/24/2021 at 17:03
== END ==
PROVIDERS: Family Provider Internal Medicine; PCP Family Medicine; Referring Provider Family Medicine; Visit Provider Family Medicine
DX: M79.645 Pain in left finger(s) (principal); M18.12 Unilateral primary osteoarthritis of first carpometacarpal joint, left hand
CPT/HCPCS: 73140

== ENCOUNTER → 2022-01-23 17:06 | Outpatient (ROUT) | payer MEDICARE, OTHER, SELFPAY | PROVIDERS: Family Provider Internal Medicine; PCP Family Medicine; Visit Provider Dermatology | DX: T81.40XA Infection following a procedure, unspecified, initial encounter (principal); L57.8 Other skin changes due to chronic exposure to nonionizing radiation; X32.XXXA Exposure to sunlight, initial encounter | CPT/HCPCS: 87070; 87075; 87077; 87186; 87205 ==

== ENCOUNTER → 2023-02-19 | Outpatient (CLI) | payer MEDICARE, OTHER, SELFPAY ==
--- NOTE | 2023-02-19 16:51 | DI.RAD.S_ITS ---
PROCEDURE: XR LUMBAR SPINE 2-3V INDICATIONS: Lower back pain TECHNIQUE: 3 views of the lumbar spine were acquired. COMPARISON: CT, CT ABDOMEN PELVIS W CON, 02/04/2021, 9:53. FINDINGS: Bones: 5 [id number] vertebrae are present. There is normal bony alignment. No vertebral body compression fractures. No suspicious bony lesions. Moderate to severe disc height loss at the L4-L5 level; otherwise multilevel endplate spurring and osteophytes. Mild facet joint arthropathy L3-L4, L4-L5 and L5-S1 Soft tissues: Overlying bowel gas pattern is normal. No suspicious soft tissue calcifications. IMPRESSION: Multilevel lumbar spine spondylosis, most notably at the L4-L5 level. Dictated by: Markus Blue RR Interpreted: Joel Crane MD on 02/19/2023 at 20:27 Transcribed by: CASEY on 02/20/2023 at 8:15 Approved by: Joel Crane M.D. on 02/20/2023 at 12:27
== END ==
LOC: RAD 16:50
PROVIDERS: PCP Family Medicine; Referring Provider Family Medicine; Visit Provider Family Medicine
DX: M47.816 Spondylosis without myelopathy or radiculopathy, lumbar region (principal); M47.817 Spondylosis without myelopathy or radiculopathy, lumbosacral region; M54.50 Low back pain, unspecified
CPT/HCPCS: 72100

== ENCOUNTER → 2023-02-27 07:01 | Outpatient (CLI) | payer MEDICARE, OTHER, SELFPAY ==
--- NOTE | 2023-02-27 | DI.MRI.S_ITS ---
PROCEDURE: MR LUMBAR SPINE WO CON INDICATIONS: SPONDYLOPATHIES, LUMBAR REGION TECHNIQUE: Noncontrast sagittal T1 spin echo and T2 fast echo, sagittal STIR, and T2 fast spin echo through the lumbar spine. In cases with scoliosis, additional coronal T2 fast spin echo may be performed. COMPARISON: None. FINDINGS: Image quality: Excellent. Alignment and Curvature: There is normal bony alignment. Bone Marrow: Marrow is of normal overall signal. No acute vertebral body compression fractures. Spinal Cord: Conus medullaris terminates at the L1 level. Visualized cord demonstrates normal signal and size. Paraspinous Soft Tissues: No paravertebral masses. T12-L1: No significant disc bulge. The foramina and central canal are patent. L1-L2: No significant disc bulge. The foramina and central canal are patent. L2-L3: No significant disc bulge. The foramina and central canal are patent. L3-L4: No significant disc bulge. The foramina and central canal are patent. Left facet synovial cyst measuring 3 x 5 mm. There is also mild ligamentum flavum hypertrophy. Moderate bilateral foraminal stenosis. Moderate central canal stenosis. L4-L5: There is disc space narrowing with endplate degenerative changes a diffuse disc osteophyte complex is present. Ligamentum flavum hypertrophy. Moderate to severe bilateral foraminal stenosis at L4-5. L5-S1: No significant disc bulge. The foramina and central canal are patent. IMPRESSION: 1. Multilevel cervical spondylosis causing foraminal and central canal stenosis as detailed above. 2. Degenerative disc disease is most severe at L4-5. 3. Moderate central canal stenosis at L3-4. Dictated by: Aopllo Ogden M.D. on 02/27/2023 at 9:11 Approved by: Apollo Ogden M.D. on 02/27/2023 at 9:20
== END ==
PROVIDERS: PCP Family Medicine; Referring Provider Family Medicine; Visit Provider Family Medicine
DX: M46.87 Other specified inflammatory spondylopathies, lumbosacral region (principal); M47.816 Spondylosis without myelopathy or radiculopathy, lumbar region; M51.36 Other intervertebral disc degeneration, lumbar region; M48.061 Spinal stenosis, lumbar region without neurogenic claudication
CPT/HCPCS: 72148

== ENCOUNTER → 2023-05-22 09:03 | Outpatient (CLI) | payer MEDICARE, OTHER, SELFPAY ==
--- NOTE | 2023-05-22 | DI.MRI.S_ITS ---
PROCEDURE: MR KNEE RT WO CON INDICATIONS: Internal derangement of right knee TECHNIQUE: Noncontrast sagittal PD fast spin echo and T2 fast spin echo with fat saturation, sagittal 3-D FLASH with fat saturation; coronal T1 spin echo and PD fast spin echo with fat saturation, and axial PD fast spin echo with fat saturation through the knee. COMPARISON: [facility], MR, MR KNEE LT WO CON, 09/08/2018, 9:11. [facility], MR, KNEE WITHOUT CONTRAST, 09/17/2016, 7:08. [facility], CR, XR KNEE ARTHRITIC SERIES RT, 05/01/2023, 11:59. FINDINGS: Image quality: Excellent. Menisci: There is amorphous and linear oblique high T2 signal intensity traversing the inner, middle, and peripheral thirds of the medial meniscal body and posterior horn demonstrating superior and inferior articular surface extension, indicating complex tearing, as before. There is new vertically oriented linear high T2 signal intensity traversing the peripheral 3rd of the medial meniscal body, demonstrating superior and inferior articular surface extension, indicating vertical tearing. There is obliquely oriented linear high T2 signal intensity traversing the inner, middle, and peripheral thirds of the lateral meniscal body, demonstrating inferior articular surface extension, indicating oblique tearing, as before. Cruciate ligaments: The anterior and posterior cruciate ligaments appear intact. Moderate T2 signal elevation along the course of the anterior cruciate ligament is present, indicating myxoid degeneration. Medial structures: The medial collateral ligament appears intact. Visualized portions of the pes anserinus tendons appear normal. No abnormal bursal fluid. Lateral structures: The lateral collateral ligament demonstrates new moderate T2 signal elevation at the femoral origin. The long and short heads of the biceps femoris tendon appear intact. The popliteus tendon appears normal. Iliotibial band appears normal. Anterior structures: The quadriceps and patellar tendons appear intact. There is mild T2 signal elevation within the quadriceps tendon at the patellar insertion site. Patellar alignment is normal. No femoral trochlear dysplasia or ventral trochlear prominence. No edema in the infrapatellar fat pad. Bones and cartilage: No bone marrow contusions or fractures. There is mild tricompartmental periarticular osteophyte formation. There is severe articular cartilage loss diffusely overlying the weight-bearing aspects of the medial femoral condyle and medial tibial plateau. Articular cartilage fibrillation overlies the lateral patellar facet. Joint space: There is physiologic knee joint fluid. No Flores's cyst. Normal appearing synovial plicae are incidentally noted. IMPRESSION: 1. Tricompartmental osteoarthritis with associated articular cartilage loss. 2. Partial-thickness lateral collateral ligament tear. 3. Medial and lateral meniscal tearing as above. 4. Myxoid degeneration of the anterior cruciate ligament. 5. Mild quadriceps tendinopathy. Dictated by: Joe Wolff M.D. on 05/22/2023 at 11:56 Approved by: Joe Wolff M.D. on 05/22/2023 at 12:01
== END ==
PROVIDERS: PCP Family Medicine; Referring Provider Orthopaedic Surgery; Visit Provider Orthopaedic Surgery
DX: S83.231A Complex tear of medial meniscus, current injury, right knee, initial encounter (principal); S83.281A Other tear of lateral meniscus, current injury, right knee, initial encounter; S83.421A Sprain of lateral collateral ligament of right knee, initial encounter; M23.91 Unspecified internal derangement of right knee; M17.11 Unilateral primary osteoarthritis, right knee
CPT/HCPCS: 73721

== ENCOUNTER 2023-05-31 02:46 | Inpatient (IN) | payer MEDICARE, OTHER, SELFPAY ==
[2023-05-31] VITALS (15 sets, daily range): BP systolic 126–164; BP diastolic 60–79; PULSE 58–83; RESP 16–20; TEMP 35.5–37.1; O2SAT 91–98; BMI 30.4; BMI 35.6
--- NOTE | 2023-05-31 03:00 | DI.CT.S_ITS ---
PROCEDURE: CT ABDOMEN PELVIS W CON INDICATIONS: Generalized abdominal pain with distention TECHNIQUE: After the administration of intravenous contrast, axial sections acquired from the lung bases to the pubic symphysis. Coronal and sagittal reformats were performed. For radiation dose reduction, the following was used: automated exposure control, adjustment of mA and/or kV according to patient size. COMPARISON: [facility], CT, CT ABDOMEN PELVIS W CON, 02/04/2021, 9:53. FINDINGS: Image quality: Excellent. Lung bases: No suspicious pulmonary nodules or consolidation. Dependent atelectasis.. Heart: Cardiomegaly ABDOMEN.: Liver: Large cystic lesion in the left hepatic lobe measuring 10.7 x 8.8 cm with Hounsfield unit of 4 compatible with a simple cyst. Additional simple cyst in the right hepatic lobe measuring 2.1 cm. Smaller subcentimeter hypodensities in the left hepatic lobe are too small to characterize. Gallbladder: Unremarkable. Biliary ducts: Unremarkable. Pancreas: Unremarkable. Spleen: Unremarkable. Adrenal Glands: Unremarkable. Kidneys and Ureters: Unremarkable. Stomach and Bowel: No hiatal hernia. Stomach appears grossly normal. Proximal small bowel is dilated with air-fluid levels measuring up to 3.3 cm with transition point in the left lower quadrant (2/65, 4/32). No pneumatosis, pneumoperitoneum or portal venous gas. Normal appendix. Peritoneum: No abnormal intraperitoneal fluid. No free air. Ventral Wall: Tiny fat containing umbilical hernia. Abdominal Nodes: No retroperitoneal or mesenteric adenopathy by size criteria. Vessels: Aorta and inferior vena cava are normal in size. Mild calcification of the abdominal aorta. Patent hepatic, portal, splenic and bilateral renal veins. PELVIS: Pelvic Organs: Unremarkable. Bladder: Unremarkable. Pelvic Nodes: No enlarged lymph nodes. Miscellaneous: Small fat containing inguinal hernia. Bones: No acute fractures. No aggressive appearing lytic or blastic osseous lesions. Benign bone island in the right iliac spine. IMPRESSION: 1. Acute, uncomplicated small-bowel obstruction with transition point in the left lower quadrant. No pneumatosis, pneumoperitoneum or portal venous gas. 2. Incidental findings as described above. I agree with the preliminary report. Dictated by: Sukh Coelho M.D. on 05/31/2023 at 8:46 Approved by: Sukh Coelho M.D. on 05/31/2023 at 8:54
--- NOTE | 2023-05-31 03:00 | ED.GENADULT ---
HPI - General Adult General Chief complaint: Abdominal Pain Stated complaint: ABD PAIN, VOMITING Time Seen by Provider: 05/31/23 02:50 Source: patient Mode of arrival: Ambulatory Limitations: no limitations History of Present Illness HPI narrative: 67-year-old male. History of issues of bowel obstruction/gastroparesis/ileus. No prior abdominal surgeries. Two nights ago had episodes of diarrhea that most likely came after being exposed to a grandchild who had similar symptoms. He states that the diarrhea has actually resolved. Woke up this morning with increasing pain and nausea and abdominal distention. Has not passed flatus. No change in urinary symptoms. No chest pain or shortness of breath. Related Data Home Medications Medication Instructions Recorded Confirmed alfuzosin 10 mg tablet,extended 10 mg PO QDAY ##0 07/02/16 01/30/22 release 24 hr diphenhydramine HCl 25 mg tablet 25 mg PO QHS ##0 07/02/16 01/30/22 (Benadryl Allergy) omeprazole 20 mg capsule,delayed 20 mg PO QDAY ##0 07/02/16 01/30/22 release losartan 100 1 tab PO DAILY 03/31/18 01/30/22 mg-hydrochlorothiazide 25 mg tablet Resmed Airsense 10 CPAP #1 ea 10/01/18 01/30/22 clonidine HCl 0.2 mg tablet 0.2 mg PO BID 04/18/21 01/30/22 hydrochlorothiazide 25 mg tablet 25 mg PO DAILY 04/18/21 01/30/22 amlodipine 5 mg tablet 5 mg PO DAILY 08/01/21 01/30/22 atorvastatin 20 mg tablet (Lipitor) 20 mg PO .every other day #0 tabs 08/01/21 01/30/22 Allergies Allergy/AdvReac Type Severity Reaction Status Date / Time somatostatin AdvReac Unknown Verified 01/30/22 08:57 Review of Systems Constitutional Constitutional: Reports system reviewed and no additional complaints, except as documented Cardiovascular Cardiovascular: Reports system reviewed and no additional complaints, except as documented Respiratory Respiratory: Reports system reviewed and no additional complaints, except as documented Gastrointestinal Gastrointestinal: Reports system reviewed and no additional complaints, except as documented Genitourinary Genitourinary: Reports system reviewed and no additional complaints, except as documented Hematologic/Lymphatic On Anticoagulants: No Patient History Medical History Rhinitis, nonallergic, chronic Left knee pain Obesity (BMI 30-39.9) Hypertension Obstructive sleep apnea of adult Snoring Dehydration Sinusitis Cephalgia Febrile illness Corneal abrasion, left Surgical History Meniscus degeneration Social History marital status: details: tru Ramirez, lives in [place] household members: spouse lives independently: Yes caregiver/support person: No housing: house education level: other 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 Status: Never smoker alcohol intake: never Smoking Status: Never smoker Substance Use Type: does not use Exam Initial Vital Signs Initial Vital Signs: Vital Signs Pulse Rate 58 L 05/31/23 03:03 Pulse Oximetry 94 05/31/23 03:03 Oxygen Delivery Method Room Air 05/31/23 03:03 HENMT Head: normal to inspection and normocephalic Resp Effort & Inspection: normal respiratory effort Auscultation: clear to auscultation bilaterally Cardio Rate: regular rate Rhythm: regular rhythm GI Inspection: normal to inspection and distended Palpation: soft, No guarding and tender Neuro General: patient alert and patient awake Course Orders Ordered: ED Orders 05/31/23 03:00 CT abdomen pelvis w con Stat 05/31/23 03:05 Complete Blood Count AUTO DIFF Stat Comprehensive Metabolic Panel Stat Lipase Stat 05/31/23 04:31 Consult to General Surgery Urgent Sodium Chloride (Normal Saline 0.9%) 1,000 mls @ 100 mls/hr IV CONT GUIDO Morphine Sulfate (Morphine 2 Mg/Ml Inj) 4 mg IV Q4HR PRN PRN Reason: Pain, Mild (1-3) Ondansetron HCl (Ondansetron 4 Mg/2 Ml Inj) 4 mg IV Q4HR PRN PRN Reason: Nausea And Vomiting Discontinued Medications Sodium Chloride (Normal Saline 0.9%) 1,000 mls @ 1,000 mls/hr IV BOLUS ONE Stop: 05/31/23 03:51 Last Infusion: 05/31/23 04:37 Dose: Infused Documented By: Admin: 05/31/23 03:06 Dose: 1,000 mls/hr Documented By: ATUL Morphine Sulfate (Morphine 4 Mg/Ml Inj) 4 mg IV NOW ONE Stop: 05/31/23 03:13 Last Admin: 05/31/23 03:22 Dose: 4 mg Documented By: ATUL Ondansetron HCl (Ondansetron 4 Mg/2 Ml Inj) 4 mg IV NOW ONE Stop: 05/31/23 02:53 Last Admin: 05/31/23 03:13 Dose: 4 mg Documented By: ATUL Vital Signs Vital signs: Vital Signs - 8 hr 05/31/23 03:03 05/31/23 03:08 05/31/23 03:30 Temperature 98 F Pulse Rate 58 L 72 67 Respiratory Rate 16 Blood Pressure 164/77 H Pulse Oximetry 94 94 95 Oxygen Delivery Method Room Air Room Air Room Air 05/31/23 03:54 05/31/23 03:54 05/31/23 04:00 Temperature Pulse Rate 74 65 Respiratory Rate Blood Pressure 150/68 H Pulse Oximetry 91 95 Oxygen Delivery Method Room Air Room Air 05/31/23 04:00 Temperature Pulse Rate Respiratory Rate Blood Pressure 136/61 Pulse Oximetry Oxygen Delivery Method Medical Decision Making Medical Records Medical records reviewed: Yes I reviewed the patient's medical records. Lab Data Lab results reviewed: Yes I reviewed the patient's lab results. 05/31/23 03:05 05/31/23 03:05 Labs: Lab Results 05/31/23 Range/Units 03:05 WBC 8.2 (4.5-11.0) X10^3/uL RBC 5.17 (4.5-5.9) X10^6/uL Hgb 15.7 (13.5-17.5) g/dL Hct 45.9 (41-53) % MCV 88.8 (80-100) fL MCH 30.4 (26-34) PG MCHC 34.2 (30-36) % RDW 13.9 (11.6-14.8) % Plt Count 159 (150-400) X10^3/uL Neut % (Auto) 78.0 H (50-75) % Lymph % (Auto) 11.0 L (25-40) % [place] % (Auto) 8.9 (3-14) % Eos % (Auto) 1.5 L (2-4) % Baso % (Auto) 0.6 (0-2) % Neut # (Auto) 6400 (7765-1368) /uL Lymph # (Auto) 900 L (1201-3400) /uL [place] # (Auto) 700 (0-900) /uL Eos # (Auto) 100 (0-450) /uL Baso # (Auto) 0 (0-100) /uL Sodium 139 (137-145) mmol/L Potassium 3.7 (3.4-5.1) mmol/L Chloride 106 (98-107) mmol/L Carbon Dioxide 26 (22-32) mmol/L BUN 25 H (9-20) mg/dL Creatinine 1.01 (0.66-1.25) mg/dL Estimated GFR > 60 (>60) mL/min BUN/Creatinine Ratio 24.8 H (6-22) Glucose 136 H (80-110) mg/dL Calcium 9.7 (8.4-10.2) mg/dL Total Bilirubin 0.9 (0.2-1.3) mg/dL AST 70 H (17-59) IU/L ALT 75 H (<50) IU/L Alkaline Phosphatase 79 (38-126) U/L Total Protein 7.4 (6.3-8.2) g/dL Albumin 4.2 (3.5-5.0) g/dL Globulin 3.2 (1.7-4.1) g/dL Albumin/Globulin Ratio 1.3 (1.0-2.8) Lipase 65 (23-300) U/L Imaging Data CT scan - abdomen/pelvis: Radiologist's Impression: Findings compatible with small bowel obstruction with transition point within the left mid abdomen. No pneumoperitoneum or pneumatosis is present MDM Narrative Medical decision making narrative: CT scans consistent with small-bowel obstruction. Could potentially be ileus however there is a transition point noted on the CT scan. This does fit with his presenting symptoms. Labs unremarkable. Does not have a surgical abdomen. Will place NG tube. Discussed the case with Dr. Carl on-call with General surgery who will admit the patient. Discussed the need for admission with the patient and his at bedside. They expressed understanding and agreement. Discharge Plan Departure Patient Disposition: Admitted As Inpatient Clinical Impression: Small bowel obstruction Admit Date/Time: 05/31/23 04:32 Admit Provider: Taylor Carl
[2023-05-31] MEDS: SODIUM CHLORIDE 0.9% 1,000 ML 1000 ML IV (03:06)
[2023-05-31] MEDS: ONDANSETRON 4 MG/2 ML INJ IV (03:13)
[2023-05-31 03:16] LABS: Add Manual Diff / Slide Review NO; Basophils Absolute Auto 0 /uL (0-100); Basophils Percent Auto 0.6 % (0-2); Eosinophils Absolute Auto 100 /uL (0-450); Eosinophils Percent Auto 1.5 % (2-4); Hematocrit 45.9 % (41-53); Hemoglobin 15.7 g/dL (13.5-17.5); Lymphocytes Absolute Auto 900 /uL (1100-4500); Mean Corpuscular HGB Conc 34.2 % (30-36); Mean Corpuscular Hemoglobin 30.4 PG (26-34); Mean Corpuscular Volume 88.8 fL (80-100); Monocytes Absolute Auto 700 /uL (0-900); Monocytes Percent Auto 8.9 % (3-14); Neutrophils Absolute Auto 6400 /uL (1500-7000); Platelet Count 159 X10^3/uL (150-400); Red Blood Cell Count 5.17 X10^6/uL (4.5-5.9); Red Cell Distribution Width 13.9 % (11.6-14.8); White Blood Cell Count 8.2 X10^3/uL (4.5-11.0)
[2023-05-31] MEDS: MORPHINE 4 MG/ML INJ IV (03:22)
[2023-05-31 03:24] LABS: Alanine Aminotransferase 75 IU/L (<50); Albumin 4.2 g/dL (3.5-5.0); Albumin Globulin Ratio 1.3 (1.0-2.8); Alkaline Phosphatase 79 U/L (38-126); Aspartate Aminotransferase 70 IU/L (17-59); BUN Creatinine Ratio 24.8 (6-22); Bilirubin Total 0.9 mg/dL (0.2-1.3); Blood Urea Nitrogen 25 mg/dL (9-20); Calcium 9.7 mg/dL (8.4-10.2); Carbon Dioxide 26 mmol/L (22-32); Chloride 106 mmol/L (98-107); Estimated Glomerular Filt Rate > 60 mL/min (>60); Globulin 3.2 g/dL (1.7-4.1); Glucose 136 mg/dL (80-110); HEMOLYSIS 32 (0-50); Lipase 65 U/L (23-300); Potassium 3.7 mmol/L (3.4-5.1); Sodium 139 mmol/L (137-145); Total Protein 7.4 g/dL (6.3-8.2)
--- NOTE | 2023-05-31 04:51 | DI.RAD.S_ITS ---
PROCEDURE: XR ABDOMEN 1V INDICATIONS: post NG tube TECHNIQUE: One view of the abdomen acquired. COMPARISON: [facility], CT, CT ABDOMEN PELVIS W CON, 05/31/2023, 3:34. FINDINGS: Surgical changes and devices: Enteric tube with the tip in the stomach. Bowel: Prominent loops of small bowel in the mid abdomen. Soft tissues: No suspicious abdominal calcifications. Visualized solid organ contours appear normal in size. Minimal hazy opacity at the lung bases. Bones: No suspicious bony lesions. IMPRESSION: Enteric tube in the stomach. Dilated loops of small bowel in the mid abdomen. Dictated by: Kaz Hawkins M.D. on 05/31/2023 at 8:40 Approved by: Kaz Hawkins M.D. on 05/31/2023 at 8:43
--- NOTE | 2023-05-31 06:28 | DI.RAD.S_ITS ---
PROCEDURE: XR ABDOMEN 1V INDICATIONS: NG tube placement TECHNIQUE: One view of the abdomen acquired. COMPARISON: [facility], , XR ABDOMEN 1V, 05/31/2023, 5:02. FINDINGS: Surgical changes and devices: Enteric tube in the stomach. The tube may be slightly advanced. Bowel: Dilated loops of small bowel in the mid abdomen. Soft tissues: No suspicious abdominal calcifications. Visualized solid organ contours appear normal in size. Bones: No suspicious bony lesions. IMPRESSION: Enteric tube in the stomach which may be slightly advanced. The dilated loops of small bowel in the mid abdomen. Dictated by: Kaz Hawkins M.D. on 05/31/2023 at 8:43 Approved by: Kaz Hawkins M.D. on 05/31/2023 at 8:44
[2023-05-31] MEDS: SODIUM CHLORIDE 0.9% 1,000 ML 100 ML IV (06:38)
--- NOTE | 2023-05-31 07:37 | PC.NURSE ---
Patient arrived to acute care unit from ED at 05:30, transferred by wheelchair. A/O x 4, able to make needs known. NG tube placed in ED. Patient is NPO. NS running at 100/hr. Received call from radiology stating the the NG tube needs to be advanced 3-5cm. Advanced NG tube, repeat KUB complete. Bed in low, locked position. Call light within reach. Spouse present at bedside.
--- NOTE | 2023-05-31 12:38 | CM.DANOTE ---
Reviewed EMR and team rounds for pt's medical status and initial identified d/c needs. Met with pt at bedside to introduce self and role, pt found to be resting, oriented, expressing feeling slightly better than yesterday re: abdominal distention, however he c/o a lot of discomfort with the NG tube in the throat. Payor: Medicare PCP: Dr. Espitia Attending: Taylor Carl Pt is a 67 year-old M with a past hx of recurrent bowel obstructions/gastroparesis/ileus. He is and resides in his own home in [place]. CT imaging in the ED showed a definitive small bowel obstruction. NG tube was placed, and pt was admitted for further eval/tx. Pt remains NPO today and on bowel rest. No further information is available at this time re: further plans, consult for surgery is ordered and pending Dr. Carl's consultation and recommendations for next steps. DCP will follow and monitor for evolving d/c needs and resources. 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 No History Provided By Patient,Medical Record Has Patient been admitted in last 30 No days? Prior Living Arrangements House Household Members spouse Type of transporation used prior to Drives own vehicle admit Independent with ADL's Yes Is patient alert and oriented? Yes Comment N/A Caregiver for Another No Comment No anticipated d/c needs identified at this time. Barriers to Discharge No Discharge Plan Home Transportation Arrangement Family Referrals Initiated None needed Whiteboard Updated in Patient Room with Yes name and ext. # of Machine Pack Assembler Review Status In Process Please Provide Date Initial DC 05/31/23 Assessment Was Performed
[2023-05-31] MEDS: ACETAMINOPHEN 325 MG TABLET 650 MG PO (12:57)
--- NOTE | 2023-05-31 13:59 | P.HP_ITS ---
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 He reports the development of diarrhea past 24 hours which then evolved into abdominal distention and inability to pass gas. CT abdomen pelvis and admission demonstrates a small-bowel obstruction no free air. He is no history of abdominal surgery but has had at least 3 similar small-bowel obstructions all of which resolved with non operative therapy. 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2 mg PO BID 04/18/21 05/31/23 History hydrochlorothiazide 25 mg tablet 25 mg PO DAILY 04/18/21 05/31/23 History amlodipine 5 mg tablet 5 mg PO DAILY 02/15/22 12/15/23 History atorvastatin 20 mg tablet (Lipitor) 20 mg PO .every other day #0 tabs 08/01/21 05/31/23 History Allergies Allergy/AdvReac Type Severity Reaction Status Date / Time somatostatin AdvReac Unknown Verified 01/30/22 08:57 Exam Vital Signs (past 8 hours): - 05/31/23 09:01 05/31/23 09:01 05/31/23 12:28 Temperature 96.8 F L 98.7 F Pulse Rate 83 67 Respiratory Rate 19 19 Blood Pressure 164/79 H 144/65 H Pulse Oximetry 97 98 97 Oxygen Delivery Method Room Air Oxygen Flow Rate 0 0 Oxygen Delivery Method Room Air Oxygen Flow Rate 0 Narrative Exam Narrative: GENERAL: A well nourished, well developed adult man, resting comfortably, in no acute distress. HEENT: Normocephalic, atraumatic. No scleral icterus CHEST: Rising symmetrically. No audible wheezes CARDIOVASCULAR: Warm and well perfused. Regular rate ABDOMEN: Distended but compressible no peritonitis EXTREMITIES: Normal tone and without edema. NEUROLOGIC: Moving all extremities spontaneously. No gross motor deficits. Objective Labs 05/31/23 03:05 05/31/23 03:05 Labs: Laboratory Results - last 24 hr 05/31/23 03:05 WBC 8.2 RBC 5.17 Hgb 15.7 Hct 45.9 MCV 88.8 MCH 30.4 MCHC 34.2 RDW 13.9 Plt Count 159 Neut % (Auto) 78.0 H Lymph % (Auto) 11.0 L [place] % (Auto) 8.9 Eos % (Auto) 1.5 L Baso % (Auto) 0.6 Neut # (Auto) 6400 Lymph # (Auto) 900 L [place] # (Auto) 700 Eos # (Auto) 100 Baso # (Auto) 0 Sodium 139 Potassium 3.7 Chloride 106 Carbon Dioxide 26 BUN 25 H Creatinine 1.01 Estimated GFR > 60 BUN/Creatinine Ratio 24.8 H Glucose 136 H Calcium 9.7 Total Bilirubin 0.9 AST 70 H ALT 75 H Alkaline Phosphatase 79 Total Protein 7.4 Albumin 4.2 Globulin 3.2 Albumin/Globulin Ratio 1.3 Lipase 65 Assessment & Plan Assessment and plan (1) Small bowel obstruction: Problem details: 67-year-old man no prior abdominal surgery with a small-bowel obstruction versus ileus. CT abdomen pelvis reviewed demonstrates small bowel obstruction no free air or free fluid. No indication for surgical intervention at this time. We will proceed with conservative therapy. Status: Acute
--- NOTE | 2023-05-31 14:42 | PC.NURSE ---
Addendum entered by Delfina Meza R.N. 05/31/23 19:07: Pt feeling better thru/out day Taking liquids well. Passing flatus Call placed to MD Received orders for D/C SL D?C intact Home instructions given w/understanding. Pt escorted by staff via W/C to waiting vehicle D/C in stable condition. Original Note: Pt was able to D/C NG tube this afternoon. Abdomen more soft w/ hypo bowel tones noted. Now taking clears w/o nausea. Pt ambulated loop of hallway. IVF changed to SL Call light w/in reach, pt calls appropriately for needs. Continue w/plan of care.
== END 2023-05-31 19:00 | disposition home or self-care (01) | DRG 390 ==
LOC: ED 04:29 → AC 04:33
PROVIDERS: Admitting Provider Surgery; Emergency Provider Emergency Medicine; PCP Family Medicine; Referring Provider Emergency Medicine; Visit Provider Surgery
DX: K56.609 Unspecified intestinal obstruction, unspecified as to partial versus complete obstruction (principal); I10 Essential (primary) hypertension; G47.33 Obstructive sleep apnea (adult) (pediatric); E66.9 Obesity, unspecified; Z88.8 Allergy status to other drugs, medicaments and biological substances; Z87.19 Personal history of other diseases of the digestive system
CPT/HCPCS: 36415; 74018; 74177; 80053; 83690; 85025; 99284; J2270; J2405; Q9967

== ENCOUNTER 2023-06-01 19:53 | Inpatient (IN) | payer MEDICARE, OTHER, SELFPAY ==
[2023-05-31 04:38] VITALS: BMI 35.6
[2023-06-01] VITALS (11 sets, daily range): BP systolic 152–194; BP diastolic 67–98; PULSE 51–67; RESP 16–20; TEMP 36.6; O2SAT 92–97; BMI 35.3
--- NOTE | 2023-06-01 19:59 | ED_ITS ---
HPI - General Adult General Chief complaint: Abdominal Pain Stated complaint: bowel obstruction seen ED 24hr ago Time Seen by Provider: 06/01/23 19:59 History of Present Illness HPI narrative: 67-year-old gentleman with a history of hypertension, hyperlipidemia no prior bowel surgeries no history of diverticulitis, essentially normal colonoscopy within the last 2 years who was seen on May 31 with small-bowel obstruction. He is spent approximately 24 hours in the hospital NG tube was placed felt that things were getting better was discharged home and after discharge and having a bit of broth symptoms have returned. He is having increased distention and pain even more than his initial presentation at this time. He is not particularly nauseated has not vomited. He notes that he did have some diarrhea sometime after discharge and before returning to the emergency department for the 2nd time but now notes that he is not even passing gas. He describes no fevers, chest pain, palpitations, dyspnea, headaches Related Data Home Medications Medication Instructions Recorded Confirmed alfuzosin 10 mg tablet,extended 10 mg PO QDAY ##0 07/02/16 06/01/23 release 24 hr diphenhydramine HCl 25 mg tablet 25 mg PO QHS ##0 07/02/16 06/01/23 (Benadryl Allergy) omeprazole 20 mg capsule,delayed 20 mg PO QDAY ##0 07/02/16 06/01/23 release Resmed Airsense 10 CPAP #1 ea 10/01/18 06/01/23 clonidine HCl 0.2 mg tablet 0.2 mg PO BID 04/18/21 06/01/23 hydrochlorothiazide 25 mg tablet 25 mg PO DAILY 04/18/21 06/01/23 amlodipine 5 mg tablet 5 mg PO DAILY 08/01/21 06/01/23 atorvastatin 20 mg tablet (Lipitor) 20 mg PO DAILY #0 tabs 08/01/21 06/01/23 famotidine-Ca carb-mag hydrox 10 1 tab PO BEDTIME 06/01/23 06/01/23 mg-800 mg-165 mg chewable tablet (Pepcid Complete) gabapentin 300 mg capsule 300 mg PO BEDTIME 06/01/23 06/01/23 losartan 100 mg tablet 100 mg PO DAILY 06/01/23 06/01/23 Allergies Allergy/AdvReac Type Severity Reaction Status Date / Time somatostatin AdvReac Unknown Verified 01/30/22 08:57 Review of Systems Review of Systems Narrative: Pertinent positive and negative findings as per HPI Patient History Medical History (Updated 06/01/23 @ 21:04 by Jenni Yanez MD) Rhinitis, nonallergic, chronic Left knee pain Obesity (BMI 30-39.9) Hypertension Obstructive sleep apnea of adult Snoring Dehydration Sinusitis Cephalgia Febrile illness Corneal abrasion, left Surgical History Meniscus degeneration Social History marital status: details: tru Ramirez, lives in [place] household members: spouse lives independently: Yes caregiver/support person: No housing: house education level: other 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 Well-nourished well-developed HEENT: Moist mucous membranes, normal sclera with reactive pupils, Respiratory: Lungs are clear to auscultation, no wheezing no rales no rhonchi. Full and symmetrical air movement Cardiac: Regular rate and rhythm no murmurs no bruits Abdomen: Distended, tympanitic with borborygmi. No rebound or guarding. Skin: Warm and dry, no rashes Neurologic: Grossly neurologically intact with no obvious asymmetries or abnormalities Extremities: No trauma, well perfused Psych: Cooperative, appropriate insight and affect Course Orders Ordered: ED Orders 06/01/23 19:58 EKG-12 Lead Stat 06/01/23 20:00 XR acute abdomen series Stat 06/01/23 20:30 Complete Blood Count AUTO DIFF Stat Comprehensive Metabolic Panel Stat Lipase Stat Prothrombin Time INR Stat Hydromorphone HCl (Hydromorphone 0.5 Mg Inj) 0.5 mg IV Q15MIN PRN PRN Reason: Pain, Last Admin: 06/01/23 20:57 Dose: 0.5 mg Documented By: Admin: 06/01/23 20:34 Dose: 0.5 mg Documented By: THIEN Hydromorphone HCl (Hydromorphone 0.5 Mg Inj) 0.5 mg IV Q1HR GUIDO Last Admin: 06/01/23 22:59 Dose: 0.5 mg Documented By: Sodium Chloride (Normal Saline 0.9%) 1,000 mls @ 125 mls/hr IV CONT GUIDO Last Admin: 06/01/23 22:33 Dose: 125 mls/hr Documented By: Ondansetron HCl (Ondansetron 4 Mg Odt) 4 mg PO NOW PRN PRN Reason: Nausea And Vomiting Ondansetron HCl (Ondansetron 4 Mg/2 Ml Inj) 4 mg IV NOW PRN PRN Reason: Nausea And Vomiting Last Admin: 06/01/23 20:33 Dose: 4 mg Documented By: THIEN Ondansetron HCl (Ondansetron 4 Mg/2 Ml Inj) 4 mg IV Q4HR PRN PRN Reason: Nausea And Vomiting Discontinued Medications Sodium Chloride (Normal Saline 0.9%) 1,000 mls @ 1,000 mls/hr IV BOLUS ONE Stop: 06/01/23 21:07 Last Infusion: 06/01/23 21:34 Dose: Infused Documented By: Admin: 06/01/23 20:34 Dose: 1,000 mls/hr Documented By: THIEN Lidocaine HCl (Lidocaine 1% (Pf) 5 Ml) 5 ml INJ NOW ONE Stop: 06/01/23 21:33 Last Admin: 06/01/23 21:51 Dose: 5 ml Documented By: THIEN Vital Signs Vital signs: Vital Signs - 8 hr 06/01/23 20:03 06/01/23 20:11 06/01/23 20:30 Temperature 97.9 F Pulse Rate 66 66 65 Respiratory Rate 16 Blood Pressure 194/98 H Pulse Oximetry 96 96 96 Oxygen Delivery Method Room Air 06/01/23 20:32 06/01/23 20:32 Temperature Pulse Rate 62 Respiratory Rate 18 Blood Pressure 168/77 H Pulse Oximetry 96 Oxygen Delivery Method Medical Decision Making Lab Data 06/01/23 20:30 06/01/23 20:30 Labs: Lab Results 06/01/23 Range/Units 20:30 WBC 8.8 (4.5-11.0) X10^3/uL RBC 5.31 (4.5-5.9) X10^6/uL Hgb 15.8 (13.5-17.5) g/dL Hct 46.6 (41-53) % MCV 87.7 (80-100) fL MCH 29.7 (26-34) PG MCHC 33.8 (30-36) % RDW 14.1 (11.6-14.8) % Plt Count 161 (150-400) X10^3/uL Neut % (Auto) 80.3 H (50-75) % Lymph % (Auto) 10.2 L (25-40) % [place] % (Auto) 6.2 (3-14) % Eos % (Auto) 3.0 (2-4) % Baso % (Auto) 0.3 (0-2) % Neut # (Auto) 7000 (9605-7094) /uL Lymph # (Auto) 900 L (6140-5934) /uL [place] # (Auto) 500 (0-900) /uL Eos # (Auto) 300 (0-450) /uL Baso # (Auto) 0 (0-100) /uL PT 13.3 H (9.4-12.5) SECONDS INR 1.2 (0.9-1.3) Sodium 138 (137-145) mmol/L Potassium 4.1 (3.4-5.1) mmol/L Chloride 103 (98-107) mmol/L Carbon Dioxide 28 (22-32) mmol/L BUN 19 (9-20) mg/dL Creatinine 0.93 (0.66-1.25) mg/dL Estimated GFR > 60 (>60) mL/min BUN/Creatinine Ratio 20.4 (6-22) Glucose 97 (80-110) mg/dL Calcium 9.5 (8.4-10.2) mg/dL Total Bilirubin 1.2 (0.2-1.3) mg/dL AST 51 (17-59) IU/L ALT 65 H (<50) IU/L Alkaline Phosphatase 70 (38-126) U/L Total Protein 7.4 (6.3-8.2) g/dL Albumin 4.0 (3.5-5.0) g/dL Globulin 3.4 (1.7-4.1) g/dL Albumin/Globulin Ratio 1.2 (1.0-2.8) Lipase 65 (23-300) U/L MDM Narrative Medical decision making narrative: CC: Recurrent abdominal pain Complicating co-morbidities: Recurrent small-bowel obstructions with no apparent underlying etiology, hypertension Data collected from: patient, Medical records reviewed: Medical records from admission on May 31 both ER, surgery and hospitalist notes are all reviewed Differential considered: Small-bowel obstruction, mass or tumor as an etiology for the obstruction, adhesions, paralytic ileus Exam documented above, pertinent findings include: Alert and appropriate, moderate pain significant distention with borborygmi but not an acute surgical abdomen at this time Lab Test results independently reviewed as above. Pertinent findings: CBC is unremarkable Independently reviewed EKG: Sinus rhythm at a rate of 63. Normal intervals, normal axis. No acute ischemic changes Imaging studies independently reviewed: X-ray of the abdomen shows small bowel obstruction with what appears to be a transition point in the left lower quadrant. This is compared to the CT scan done from the as well as CT KUB is done for NG placement yesterday. Consultations: Discussed with Dr. Drake, surgeon. Treatments: Fluids, Dilaudid for pain control, NG-tube placement Discussion: 67-year-old gentleman who was admitted on May 31 with small- bowel obstruction felt to be resolving obviously now worsening. NG tube will be replaced. He did take his usual blood pressure medications today including his nighttime medications prior to presenting to the emergency department. Given the abrupt transition point, no prior surgeries and recurrent episodes of obstruction he may unfortunately need an exploratory laparotomy. In the meantime will place NG tube, continue IV hydration, antibiotics are not indicated at this time. Patient will be admitted to the general surgery service after discussion with Dr. Drake. I have placed bridging orders. Reviewed all findings with Dr. Head, questions are answered and he is safe for admission to the hospital for recurrent small-bowel obstruction uncertain etiology Discharge Plan Departure Patient Disposition: Admitted As Inpatient Clinical Impression: Small bowel obstruction Admit Date/Time: 06/01/23 20:52 Admit Provider: Efe Drake
--- NOTE | 2023-06-01 20:00 | DI.RAD.S_ITS ---
PROCEDURE: XR ACUTE ABDOMEN SERIES INDICATIONS: recent bowel obs/continued symptoms. TECHNIQUE: One view chest and two views of the abdomen were acquired. COMPARISON: [facility], CT, CT ABDOMEN PELVIS W CON, 05/31/2023, 3:34. [facility], CR, XR ABDOMEN 1V, 05/31/2023, 6:53. [facility], CR, XR ABDOMEN 1V, 05/31/2023, 5:02. FINDINGS: Surgical changes and devices: None. A previously present esophagogastric tube has been removed. Chest: Lungs are clear. Heart size is normal. No pleural effusions. No pneumoperitoneum. Abdomen: Bowel gas pattern is still abnormal, but mildly improved from prior CT scanning 1 day ago. No suspicious calcifications. Visualized solid organ contours appear normal. Bones: No suspicious bony lesions. IMPRESSION: Esophagogastric tube has been removed. Persistent small bowel gas prominence. No colonic gas distension. Small improvement from prior CT scanning but the degree of persistent obstructive pattern will be better assessed by additional plain film imaging over time. Dictated by: Baljinder Mena M.D. on 06/01/2023 at 20:39 Approved by: Baljinder Mena M.D. on 06/01/2023 at 20:41
[2023-06-01] MEDS: ONDANSETRON 4 MG/2 ML INJ IV (20:33)
[2023-06-01] MEDS: SODIUM CHLORIDE 0.9% 1,000 ML 1000 ML IV (20:34)
[2023-06-01] MEDS: HYDROMORPHONE 0.5 MG INJ IV ×3 (20:34→22:59)
[2023-06-01 20:49] LABS: Add Manual Diff / Slide Review NO; Basophils Absolute Auto 0 /uL (0-100); Basophils Percent Auto 0.3 % (0-2); Eosinophils Absolute Auto 300 /uL (0-450); Hematocrit 46.6 % (41-53); Hemoglobin 15.8 g/dL (13.5-17.5); Lymphocytes Absolute Auto 900 /uL (1100-4500); Lymphocytes Percent Auto 10.2 % (25-40); Mean Corpuscular HGB Conc 33.8 % (30-36); Mean Corpuscular Hemoglobin 29.7 PG (26-34); Mean Corpuscular Volume 87.7 fL (80-100); Monocytes Absolute Auto 500 /uL (0-900); Monocytes Percent Auto 6.2 % (3-14); Neutrophils Absolute Auto 7000 /uL (1500-7000); Neutrophils Percent Auto 80.3 % (50-75); Platelet Count 161 X10^3/uL (150-400); Red Blood Cell Count 5.31 X10^6/uL (4.5-5.9); Red Cell Distribution Width 14.1 % (11.6-14.8); White Blood Cell Count 8.8 X10^3/uL (4.5-11.0)
[2023-06-01 20:55] LABS: INR 1.2 (0.9-1.3); Prothrombin Time 13.3 SECONDS (9.4-12.5)
[2023-06-01 21:00] LABS: Alanine Aminotransferase 65 IU/L (<50); Albumin Globulin Ratio 1.2 (1.0-2.8); Alkaline Phosphatase 70 U/L (38-126); Aspartate Aminotransferase 51 IU/L (17-59); BUN Creatinine Ratio 20.4 (6-22); Bilirubin Total 1.2 mg/dL (0.2-1.3); Blood Urea Nitrogen 19 mg/dL (9-20); Calcium 9.5 mg/dL (8.4-10.2); Carbon Dioxide 28 mmol/L (22-32); Chloride 103 mmol/L (98-107); Estimated Glomerular Filt Rate > 60 mL/min (>60); Globulin 3.4 g/dL (1.7-4.1); Glucose 97 mg/dL (80-110); Lipase 65 U/L (23-300); Potassium 4.1 mmol/L (3.4-5.1); Sodium 138 mmol/L (137-145); Total Protein 7.4 g/dL (6.3-8.2)
[2023-06-01 21:08] LABS: HEMOLYSIS 89 (0-50)
[2023-06-01] MEDS: LIDOCAINE 1% (PF) 5 ML INJ (21:51)
--- NOTE | 2023-06-01 21:51 | DI.RAD.S_ITS ---
PROCEDURE: XR CHEST 1V INDICATIONS: NG placement TECHNIQUE: One view of the chest was acquired. COMPARISON: [facility], CR, XR ACUTE ABDOMEN SERIES, 06/01/2023, 20:07. [facility], CR, XR ABDOMEN 1V, 05/31/2023, 6:53. [facility], CR, XR ABDOMEN 1V, 05/31/2023, 5:02. [facility], CT, CT ABDOMEN PELVIS W CON, 05/31/2023, 3:34. FINDINGS: Surgical changes and devices: Esophagogastric tube extends well into the gastric body.. Lungs and pleura: Lungs are clear. No pleural effusions or pneumothorax. Mediastinum: Mediastinal contours appear normal. Heart size is normal. Bones and chest wall: No suspicious bony lesions. Overlying soft tissues appear unremarkable except for previously identified small bowel dilatation. IMPRESSION: Esophagogastric tube positioning normal. Persistent partially visualized small bowel dilatation. Dictated by: Baljinder Mena M.D. on 06/01/2023 at 22:07 Approved by: Baljinder Mena M.D. on 06/01/2023 at 22:08
[2023-06-01] MEDS: SODIUM CHLORIDE 0.9% 1,000 ML 125 ML IV (22:33)
[2023-06-02] VITALS (23 sets, daily range): BP systolic 90–168; BP diastolic 38–87; PULSE 52–82; RESP 9–96; TEMP 36.5–37.6; O2SAT 92–98; BMI 35.3
[2023-06-02 02:37] LABS: Appearance Urine UA CLEAR; Bilirubin Urine UA NEGATIVE (NEGATIVE); Color Urine UA YELLOW; Glucose Urine UA NEGATIVE (Negative); Ketones Urine UA TRACE (NEGATIVE); Leukocyte Esterase Urine UA NEGATIVE (NEGATIVE); Nitrite Urine UA NEGATIVE (Negative); Occult Blood Urine UA NEGATIVE (Negative); Protein Urine UA NEGATIVE (Negative); Specific Gravity Urine UA >=1.030 (1.000-1.035); pH Urine UA 5.5 (4.5-8.0)
[2023-06-02 02:52] LABS: Bacteria Urine None Seen; Culture Indicated Urine Cult Not Indicated; RBC Urine None Seen (0-5/HPF); Squamous Epithelial Cell Urine None Seen (0-5/HPF); WBC Urine None Seen (0-5/HPF)
[2023-06-02] MEDS: KETOROLAC 30 MG/ML VIAL IV ×2 (05:12→18:15)
[2023-06-02] MEDS: SODIUM CHLORIDE 0.9% 1,000 ML 125 ML IV ×3 (05:59→20:24)
--- NOTE | 2023-06-02 09:30 | P.HP_ITS ---
History of Present Illness History of Present Illness Date Patient Seen: 06/02/23 Chief complaint: bowel obstruction seen ED 24hr ago Narrative: 67-year-old man who is admitted with a small-bowel obstruction. He was admitted to [facility] 2 days ago with a small-bowel obstruction which resolved with conservative management. This is his 5th episode of small-bowel obstruction he is never had prior abdominal surgery. He recalls a severe episode of gastroenteritis/colitis during childhood which lasted several months but otherwise no remarkable intestinal disease. Imaging includes abdominal x-ray which demonstrates dilated loops of small bowel his CT abdomen pelvis from 2 days ago demonstrates a transition point in the left lower quadrant. 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 alcohol intake: never Meds Home Medications and Allergies Home Medications Medication Instructions Recorded Confirmed Type alfuzosin 10 mg tablet,extended 10 mg PO QDAY ##0 07/02/16 06/01/23 History release 24 hr diphenhydramine HCl 25 mg tablet 25 mg PO QHS ##0 07/02/16 06/01/23 History (Benadryl Allergy) omeprazole 20 mg capsule,delayed 20 mg PO QDAY ##0 07/02/16 06/01/23 History release Resmed Airsense 10 CPAP #1 ea 10/01/18 06/01/23 History clonidine HCl 0.2 mg tablet 0.2 mg PO BID 04/18/21 06/01/23 History hydrochlorothiazide 25 mg tablet 25 mg PO DAILY 04/18/21 06/01/23 History amlodipine 5 mg tablet 5 mg PO DAILY 08/01/21 06/01/23 History atorvastatin 20 mg tablet (Lipitor) 20 mg PO DAILY #0 tabs 08/01/21 06/01/23 History famotidine-Ca carb-mag hydrox 10 1 tab PO BEDTIME 06/01/23 06/01/23 History mg-800 mg-165 mg chewable tablet (Pepcid Complete) gabapentin 300 mg capsule 300 mg PO BEDTIME 06/01/23 06/01/23 History losartan 100 mg tablet 100 mg PO DAILY 06/01/23 06/01/23 History Allergies Allergy/AdvReac Type Severity Reaction Status Date / Time somatostatin AdvReac Unknown Verified 01/30/22 08:57 Exam Vital Signs (past 8 hours): Oxygen Delivery Method Room Air Narrative Exam Narrative: GENERAL: A well nourished, well developed adult man, no acute distress HEENT: Normocephalic, atraumatic. No scleral icterus CHEST: Rising symmetrically. No audible wheezes CARDIOVASCULAR: Warm and well perfused. Regular rate ABDOMEN: Distended without peritonitis EXTREMITIES: Normal tone and without edema. NEUROLOGIC: Moving all extremities spontaneously. No gross motor deficits. Objective Labs 06/01/23 20:30 06/01/23 20:30 Labs: Laboratory Results - last 24 hr 06/01/23 06/02/23 20:30 01:50 WBC 8.8 RBC 5.31 Hgb 15.8 Hct 46.6 MCV 87.7 MCH 29.7 MCHC 33.8 RDW 14.1 Plt Count 161 Neut % (Auto) 80.3 H Lymph % (Auto) 10.2 L Carter % (Auto) 6.2 Eos % (Auto) 3.0 Baso % (Auto) 0.3 Neut # (Auto) 7000 Lymph # (Auto) 900 L Carter # (Auto) 500 Eos # (Auto) 300 Baso # (Auto) 0 PT 13.3 H INR 1.2 Sodium 138 Potassium 4.1 Chloride 103 Carbon Dioxide 28 BUN 19 Creatinine 0.93 Estimated GFR > 60 BUN/Creatinine Ratio 20.4 Glucose 97 Calcium 9.5 Total Bilirubin 1.2 AST 51 ALT 65 H Alkaline Phosphatase 70 Total Protein 7.4 Albumin 4.0 Globulin 3.4 Albumin/Globulin Ratio 1.2 Lipase 65 Urine Color Yellow Urine Appearance Clear Urine pH 5.5 Ur Specific [place] >=1.030 H Urine Protein Negative Urine Glucose (UA) Negative Urine Ketones Trace H Urine Occult Blood Negative Urine Nitrate Negative Urine Bilirubin Negative Urine Urobilinogen 1.0 Ur Leukocyte Esterase Negative Urine RBC None seen Urine WBC None seen Ur Squamous Epith Cells None seen Urine Bacteria None seen Ur Culture Indicated? Cult not indicated Assessment & Plan Assessment and plan (1) Small bowel obstruction: Problem details: 67-year-old man no prior abdominal surgery with a small-bowel obstruction versus ileus. CT abdomen pelvis reviewed demonstrates small bowel obstruction no free air or free fluid. No indication for surgical intervention at this time. We will proceed with conservative therapy. Status: Acute Assessment & Plan narrative: 67-year-old man with multiple recurrent small bowel obstructions no history of prior abdominal surgery. We discussed management options including conservative management with nasogastric tube decompression versus exploratory surgery. My concern is that this is his 5th episode of obstruction with no good explanation. I explained that he may be able to resolve the current episode with non operative management but my suspicion is that he will have a recurrence at some point in the near future. He would like some time to consider his options and will notify us of his decision.
--- NOTE | 2023-06-02 10:36 | CM.DANOTE ---
Patient is a 67 yo male who was admitted on 06/01/23 for SBO and Readmission. Pt has MCR and REG [place] for insurance and his PCP is Dr. Satish Espitia. EMR was reviewed. Per MD, pt with hx of hypertension and was admitted on 05/31/23 two days ago for SBO with NGT that seemed to clear with conservative tx but unfortunately after d/c home began having distension and had to be readmitted. Per Surgeon, recommending Ex Lap that may turn into open surgery, if pt agreeable with surgical intervention then pt will go to OR this afternoon. SW met bedside with pt and spouse and explained role and they confirm they live outside of [place] and both are very active and independent at baseline. Pt's DPOA is his spouse and denies any DME for ambulation. Pt drives and denies any hx of SNF or HH. 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 Dtr lives on that property in a small cabin and can assist as needed or pt can stay in the cabin post surgery if needed. Pt and spouse currently discussing options that Surgeon presented to confirm they are agreeable with surgery today and also discussing discharge location since they do not feel pt would manage well in the RV after surgery. They have the option of Dtr's cabin or Mother inlaw's house at d/c. SW discussed potential options of SNF and HH pending pt's needs and if pt meets criteria for Medicare to cover SNF. They do not anticipate SNF would be needed but glad to know it might be an option at d/c pending pt's admission status. Plan: SW to follow closely for pt and spouse to make decision if they want to move forward with surgical intervention and then any discharge planning needs. Spouse very capable and supportive and able to assist at d/c. JOSE MIGUEL Alexandra Discharge Planning/Care Management CM Discharge Assessment Start: 06/02/23 09:41 Freq: Status: Active Protocol: Document 06/02/23 09:41 BF (Rec: 06/02/23 10:35 BF [id number]) Discharge Planning Assessment Assigned Vertical Punch Operator JOSE MIGUEL Llanes DPOA/Assigned Designee Name spouse Ashley Contact Information [phone] Advance Directives? No Advance Directives on File No History Provided By Patient,Significant Other, Medical Record Has Patient been admitted in last 30 Yes days? Comment Recently admitted for SBO with NGT and discharged home but had to be readmitted for same Prior Living Arrangements Other Comment pt lives in an RV with Household Members spouse Type of transporation used prior to Drives own vehicle admit Independent with ADL's Yes Is patient alert and oriented? Yes Caregiver for Another No Barriers to Discharge No Discharge Plan Home Transportation Arrangement Family Additional Comment Pending likely surgery this afternoon and any identified needs Whiteboard Updated in Patient Room with Yes name and ext. # of Vertical Punch Operator Review Status In Process Please Provide Date Initial DC 06/02/23 Assessment Was Performed Next Review Type Continued Stay Review
[2023-06-02] MEDS: LACTATED RINGERS 1,000 ML 150 ML IV (14:08)
[2023-06-02] MEDS: PIPERACILLIN/TAZO 4.5 GM in SODIUM CHLORIDE 0.9% 100 ML IV ×2 (14:09→15:48)
--- NOTE | 2023-06-02 14:48 | SUR.OPER ---
Supine on padded OR bed, head on pillow, arms secured on padded arm boards at <90 degrees abduction, legs uncrossed, safety belt at thigh, tape over blanket over lower legs.
[2023-06-02] MEDS: BUPIVACAINE 0.25% (PF) VIAL 30 ML INJ (15:44)
[2023-06-02] MEDS: LACTATED RINGERS 1,000 ML 42 ML IV (16:09)
--- NOTE | 2023-06-02 17:21 | SUR.PHASEI ---
Epidural placed in PACU.
--- NOTE | 2023-06-02 17:35 | SUR.OPER ---
Zuleta was inserted at 1430. Catheter was placed in fully and bulb was inflated upon seeing urine in the tubing. 350 ml of urine output by end of surgery. Zuleta was removed at 1720. Blood visible on catheter tip upon removal.
[2023-06-02] MEDS: ONDANSETRON 4 MG/2 ML INJ IV (17:40)
--- NOTE | 2023-06-02 17:44 | P.OP_ITS ---
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 Bilateral lower extremity compression devices were applied. He received Zosyn prior to skin incision. He was prepped and draped in sterile fashion. Zuleta catheter was sterilely placed. General anesthesia was induced he was intubated with an endotracheal tube. We began with an infraumbilical incision. The fascia was grasped incised and the abdomen was entered atraumatically. A 12 mm balloon trocar was then placed into the abdomen. Pneumoperitoneum was established. Additional working ports were placed suprapubic and right lower quadrant. A thorough evaluation of the abdomen was made. There was turbid fluid in the pelvis and dilated loops of small bowel. We began by running the small bowel and found portion of the small bowel which appeared ischemic. There was minimal working room and a serosal tear was noted on the ischemic bowel and at this point we decided to convert to an open operation. The abdomen was entered through a midline incision. The small bowel was eviscerated. There was a portion of small bowel in the mid gut approximately 50 cm which was ischemic but not frankly . There was no indra transition point but generalized area of transition associated with the ischemia. We found bands of adhesions causing constriction to the small bowel mesentery. These bands were lysed and with that the perfusion of the bowel significantly improved. The entirety of the small bowel was run from the terminal ileum to ligament of Treitz and was notable for multiple bands of interloop adhesions. These were sharply lysed. A 2nd serosal tear was encountered in the small bowel and both of these tears were oversewn with imbricating silk suture. The small bowel was notable for extensive fat creeping within the mesentery to the wall of the bowel as well as mesenteric lymphadenopathy the appearance of which was consistent with Crohn's disease. The small bowel was then returned to its natural position in the abdomen and the abdomen was irrigated with sterile saline returned clear hemostasis was checked. At this point the abdomen was closed with a running PDS suture skin was closed with marsha. He was transferred to the postoperative care unit in stable condition with plans for placement of a thoracic epidural. Complications: none Post-operative Condition: stable Disposition: ICU
[2023-06-02] MEDS: OXYCODONE/ACETAMINOPHEN 5/325 TABLET 1 TAB PO (18:01)
[2023-06-02] MEDS: PHENAZOPYRIDINE 100 MG TABLET 200 MG PO (18:09)
[2023-06-02] MEDS: HYDROMORPHONE 1 MG INJ IV ×2 (18:19→18:29)
[2023-06-02] MEDS: OXYBUTYNIN 5 MG TABLET PO (21:59)
[2023-06-03] VITALS (53 sets, daily range): BP systolic 94–152; BP diastolic 50–68; PULSE 54–88; RESP 9–33; TEMP 36.8–37.2; O2SAT 85–96
[2023-06-03] MEDS: FENT 2MCG/ML BUPIV 0.125% EPI 200 MCG/100 ML PLAST..BAG 7 MCG EPIDURAL ×3 (02:02→23:07)
[2023-06-03] MEDS: SODIUM CHLORIDE 0.9% 1,000 ML 125 ML IV ×3 (03:55→20:39)
[2023-06-03 04:47] LABS: Add Manual Diff / Slide Review NO; Basophils Absolute Auto 0 /uL (0-100); Basophils Percent Auto 0.1 % (0-2); Eosinophils Absolute Auto 0 /uL (0-450); Hemoglobin 14.3 g/dL (13.5-17.5); Lymphocytes Absolute Auto 500 /uL (1100-4500); Lymphocytes Percent Auto 3.6 % (25-40); Mean Corpuscular Hemoglobin 29.8 PG (26-34); Mean Corpuscular Volume 87.6 fL (80-100); Monocytes Absolute Auto 600 /uL (0-900); Monocytes Percent Auto 4.9 % (3-14); Neutrophils Absolute Auto 12000 /uL (1500-7000); Neutrophils Percent Auto 91.4 % (50-75); Platelet Count 157 X10^3/uL (150-400); Red Cell Distribution Width 14.3 % (11.6-14.8); White Blood Cell Count 13.1 X10^3/uL (4.5-11.0)
[2023-06-03 04:53] LABS: BUN Creatinine Ratio 22.3 (6-22); Blood Urea Nitrogen 29 mg/dL (9-20); Calcium 8.5 mg/dL (8.4-10.2); Carbon Dioxide 26 mmol/L (22-32); Chloride 105 mmol/L (98-107); Estimated Glomerular Filt Rate 60 mL/min (>60); Glucose 108 mg/dL (80-110); HEMOLYSIS 18 (0-50); Potassium 3.7 mmol/L (3.4-5.1); Sodium 138 mmol/L (137-145)
[2023-06-03] MEDS: HYDROMORPHONE 1 MG INJ IV ×2 (05:50→20:22)
--- NOTE | 2023-06-03 05:59 | PC.NURSE ---
awake overnight monitor RN note Pt in bed, A&Ox4, forgetful of details at timed due to medications given in PACU, LISA, able to lift and has full sensation in bilat legs, epidural in place, pt states sensation is dulled T8-T10 when dermatones assessed, c/o pain/spasms to bladder, unable to void, bladder scan showed less than 100ml, MD notified and order for ditropan, given with mild relief, pt requested and r/c be placed, 16f r/c placed with immediate return of 200ml brown/trish colored urine, pt states some relief after it was placed, VSS, afebrile, PPPx4, no edema, SB/SR with 1st degree AVB 50-60s, lungs clear, O2 sats 88-92% on RA, pt desats when asleep, 2L NC placed with effect, abd round firm with no BS, NGT to L nare to LIS for small amt bile drainage, midline abd dsg intact and marked for serosang shadowing, periph IV site patent with IV fluids infusing, meds and labs as ordered 0600-pt c/o of increased bladder/suprapubic pain, prn dilaudid given with some effect
--- NOTE | 2023-06-03 13:24 | PM.PNPO.1 ---
Subjective Subjective Date Patient Seen: 06/03/23 Time Patient Seen: 13:24 Interval history: Reports his dad had ulcerative colitis. No flatus today. +itching Exam Vital Signs (past 8 hours): - 06/03/23 06:01 06/03/23 06:01 06/03/23 07:01 Temperature Pulse Rate 64 66 Respiratory Rate 22 16 Blood Pressure 100/59 L Pulse Oximetry 93 90 L Oxygen Delivery Method Oxygen Flow Rate 2 2 2 06/03/23 07:01 06/03/23 07:04 06/03/23 07:30 Temperature Pulse Rate 70 67 Respiratory Rate 14 20 Blood Pressure 124/56 L Pulse Oximetry 91 90 L Oxygen Delivery Method Oxygen Flow Rate 2 2 06/03/23 08:00 06/03/23 08:00 06/03/23 08:50 Temperature 98.2 F Pulse Rate 66 Respiratory Rate 15 Blood Pressure 136/63 Pulse Oximetry 91 Oxygen Delivery Method Oxygen Flow Rate 06/03/23 09:00 06/03/23 09:00 06/03/23 09:30 Temperature Pulse Rate 71 71 Respiratory Rate 25 H 33 H Blood Pressure Pulse Oximetry 92 93 91 Oxygen Delivery Method Nasal Cannula Oxygen Flow Rate 2 06/03/23 10:30 06/03/23 11:00 06/03/23 11:02 Temperature Pulse Rate 65 67 65 Respiratory Rate 24 29 H Blood Pressure 124/50 L Pulse Oximetry 92 93 Oxygen Delivery Method Oxygen Flow Rate 06/03/23 11:03 Temperature Pulse Rate 65 Respiratory Rate Blood Pressure 124/50 L Pulse Oximetry Oxygen Delivery Method Oxygen Flow Rate Oxygen Delivery Method Nasal Cannula Oxygen Flow Rate 2 Narrative Exam Narrative: abdomen distended, dressing intact. NGT in place with moderate volume. Zuleta in place as well as epidural Objective Labs 06/03/23 04:06 06/03/23 04:06 Labs: Laboratory Results - last 24 hr 06/03/23 04:06 WBC 13.1 H RBC 4.80 Hgb 14.3 Hct 42.0 MCV 87.6 MCH 29.8 MCHC 34.0 RDW 14.3 Plt Count 157 Neut % (Auto) 91.4 H Lymph % (Auto) 3.6 L [place] % (Auto) 4.9 Eos % (Auto) 0.0 L Baso % (Auto) 0.1 Neut # (Auto) 63020 H Lymph # (Auto) 500 L [place] # (Auto) 600 Eos # (Auto) 0 Baso # (Auto) 0 Sodium 138 Potassium 3.7 Chloride 105 Carbon Dioxide 26 BUN 29 H Creatinine 1.30 H Estimated GFR 60 BUN/Creatinine Ratio 22.3 H Glucose 108 Calcium 8.5 PFSH Medical History Rhinitis, nonallergic, chronic Left knee pain Obesity (BMI 30-39.9) Hypertension Obstructive sleep apnea of adult Snoring Dehydration Sinusitis Cephalgia Febrile illness Corneal abrasion, left Surgical History Meniscus degeneration Social History marital status: details: tru Ramirez, lives in [place] household members: spouse lives independently: Yes caregiver/support person: No housing: house education level: other 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
--- NOTE | 2023-06-03 17:34 | CM.DPNOTE ---
DCP NOte MATCHBOOK ASSEMBLER reviewed EMR. Unable to meet with today due to triaging needs. Per previous CM ntoe, likely either home with dtr or in laws to recover when medically stable. Follow closely for SNF or HH needs. JOSE MIGUEL Dinh
--- NOTE | 2023-06-03 17:54 | PC.NURSE ---
Day shift: Pt A&Ox4, c/o abdominal pressure. 2L NC O2 saturation 92%-95%. Able to move extremities, bend knees, extend and flex toes, dulled sensation from T11-T9. Pt dangled at bedside, VSS, denied dizziness or lightheadedness. Pt ambulated in room SBA w/ gaitbelt and non-skid socks. Family at bedside. Call light within reach. Pt assisted SBA back to the bed, steady ambulation. Denies pain. Dermatomes remain unchanged. VSS. Call light within reach, bed alarm active, will continue to monitor.
[2023-06-03] MEDS: BENZOCAINE/MENTHOL 1 LOZ PKT 1 EACH PO ×2 (18:17→20:22)
[2023-06-03] MEDS: cloNIDine 0.1 MG TABLET 0.2 MG PO (20:22)
[2023-06-03] MEDS: OXYBUTYNIN 5 MG TABLET PO (20:23)
[2023-06-03] MEDS: SODIUM CHLORIDE 0.9% FLUSH 10 ML IV (22:14)
--- NOTE | 2023-06-03 22:32 | PC.NURSE ---
Addendum entered by Kym Nicholson R.N. 06/04/23 07:02: Ambulated around room at 0100 with SBA and walker. Continued to be mildly anxious and restless. IV Dilaudid helps. Placed on 5L Oximask to keep SpO2 > 92%, using IS occasionally. 1150ml output from NGT. Original Note: Radiator Core Tester Notes-Upon initial assessment at 2030, patient had woke with severe abdominal pain. -02/24 Encouraged use of epidural INTERIOR DESIGNER, also gave 1mg IV Dilaudid per prn orders which was effective. Abdomen is firm, distended, no bowel sounds. Reassessed NGT, sx not working, reattached, got 300ml thick bile return, patient felt some relief Larger binder also placed around abdomen.
[2023-06-04] VITALS (61 sets, daily range): BP systolic 132–169; BP diastolic 66–95; PULSE 44–97; RESP 8–32; TEMP 36.4–37.4; O2SAT 81–94
[2023-06-04] MEDS: HYDROMORPHONE 1 MG INJ IV ×5 (01:47→22:55)
[2023-06-04] MEDS: SODIUM CHLORIDE 0.9% 1,000 ML 125 ML IV ×3 (04:32→21:57)
[2023-06-04] MEDS: BENZOCAINE/MENTHOL 1 LOZ PKT 1 EACH PO (04:41)
[2023-06-04 04:55] LABS: Add Manual Diff / Slide Review NO; Basophils Absolute Auto 100 /uL (0-100); Basophils Percent Auto 0.6 % (0-2); Eosinophils Absolute Auto 0 /uL (0-450); Eosinophils Percent Auto 0.2 % (2-4); Hematocrit 38.8 % (41-53); Hemoglobin 13.1 g/dL (13.5-17.5); Lymphocytes Absolute Auto 400 /uL (1100-4500); Mean Corpuscular HGB Conc 33.7 % (30-36); Mean Corpuscular Hemoglobin 29.4 PG (26-34); Mean Corpuscular Volume 87.2 fL (80-100); Monocytes Absolute Auto 400 /uL (0-900); Monocytes Percent Auto 3.8 % (3-14); Neutrophils Absolute Auto 10200 /uL (1500-7000); Neutrophils Percent Auto 91.4 % (50-75); Platelet Count 132 X10^3/uL (150-400); Red Blood Cell Count 4.45 X10^6/uL (4.5-5.9); Red Cell Distribution Width 13.9 % (11.6-14.8); White Blood Cell Count 11.1 X10^3/uL (4.5-11.0)
[2023-06-04 05:01] LABS: BUN Creatinine Ratio 23.4 (6-22); Blood Urea Nitrogen 29 mg/dL (9-20); Calcium 8.7 mg/dL (8.4-10.2); Carbon Dioxide 29 mmol/L (22-32); Chloride 106 mmol/L (98-107); Estimated Glomerular Filt Rate > 60 mL/min (>60); Glucose 110 mg/dL (80-110); HEMOLYSIS < 15 (0-50); Potassium 3.4 mmol/L (3.4-5.1); Sodium 140 mmol/L (137-145)
[2023-06-04] MEDS: FENT 2MCG/ML BUPIV 0.125% EPI 200 MCG/100 ML PLAST..BAG 7 MCG EPIDURAL (07:33)
--- NOTE | 2023-06-04 07:40 | DI.RAD.S_ITS ---
PROCEDURE: XR CHEST 1V INDICATIONS: LOW SATS AT NIGHT TECHNIQUE: One view of the chest was acquired. COMPARISON: [facility], CR, XR CHEST 1 VIEW, 10/03/2021, 11:46. [facility], CR, XR CHEST 1V, 06/01/2023, 21:57. FINDINGS: Surgical changes and devices: There is a nasogastric tube with the tip in the stomach. Lungs and pleura: Bibasilar opacities are most likely atelectasis. No pleural effusions or pneumothorax. Mediastinum: Mediastinal contours appear normal. Heart size is normal. Bones and chest wall: No suspicious bony lesions. Overlying soft tissues appear unremarkable. IMPRESSION: Nasogastric tube in the stomach Dictated by: Doug Martínez M.D. on 06/04/2023 at 8:06 Approved by: Doug Martínez M.D. on 06/04/2023 at 8:13
[2023-06-04] MEDS: AMLODIPINE 5 MG TABLET PO (08:32)
[2023-06-04] MEDS: hydroCHLOROthiazide 25 MG TABLET PO (08:32)
[2023-06-04] MEDS: OXYBUTYNIN 5 MG TABLET PO ×2 (08:32→20:51)
[2023-06-04] MEDS: LOSARTAN 50 MG TABLET 100 MG PO (08:33)
[2023-06-04] MEDS: cloNIDine 0.1 MG TABLET 0.2 MG PO ×2 (08:33→20:51)
[2023-06-04] MEDS: SODIUM CHLORIDE 0.9% FLUSH 10 ML IV ×2 (08:35→20:52)
--- NOTE | 2023-06-04 11:20 | CM.DPC ---
DCP Cont. Reviewed EMR and team rounds for status updates. Pt continues to have an epidural placed, has a post-op ileus. D/C not forseen for at least a few more days. Will plan to follow closely for possible HH need at d/c.
[2023-06-04] MEDS: POTASSIUM CHLORIDE 20 MEQ TAB 40 MEQ PO (11:39)
--- NOTE | 2023-06-04 13:23 | P.PN_ITS ---
Subjective Subjective Date Patient Seen: 06/04/23 Time Patient Seen: 13:24 Interval history: POD 2 sp exlap lysis of adhesions for sbo no bowel resection -NGT, no flatus or BM -Epidural no longer providing noticable relief Exam Vital Signs (past 8 hours): - 06/04/23 07:00 06/04/23 08:00 06/04/23 08:09 Temperature Pulse Rate 77 Respiratory Rate Blood Pressure Pulse Oximetry 91 94 Oxygen Delivery Method Oximask Oximask Oximask Oxygen Flow Rate 4 6 Fraction of Inspired Oxygen 44 06/04/23 08:33 06/04/23 08:33 06/04/23 10:07 Temperature 98.3 F Pulse Rate 65 65 85 Respiratory Rate 15 Blood Pressure 158/72 H 158/72 H 158/72 H Pulse Oximetry 92 Oxygen Delivery Method Oxygen Flow Rate 0 Fraction of Inspired Oxygen 06/04/23 12:00 Temperature Pulse Rate Respiratory Rate Blood Pressure Pulse Oximetry 93 Oxygen Delivery Method Nasal Cannula Oxygen Flow Rate 3 Fraction of Inspired Oxygen Fraction of Inspired Oxygen 44 SaO2/FiO2 Ratio 213 Oxygen Delivery Method Nasal Cannula Oxygen Flow Rate 3 Narrative Exam Narrative: Gen-Adult man alert and oriented. Abdomen-Soft, distended, appropriately tender to palpation. NGT bilious output Objective Labs 06/04/23 04:07 06/04/23 04:07 Labs: Laboratory Results - last 24 hr 06/04/23 04:07 WBC 11.1 H RBC 4.45 L Hgb 13.1 L Hct 38.8 L MCV 87.2 MCH 29.4 MCHC 33.7 RDW 13.9 Plt Count 132 L Neut % (Auto) 91.4 H Lymph % (Auto) 4.0 L [place] % (Auto) 3.8 Eos % (Auto) 0.2 L Baso % (Auto) 0.6 Neut # (Auto) 30171 H Lymph # (Auto) 400 L [place] # (Auto) 400 Eos # (Auto) 0 Baso # (Auto) 100 Sodium 140 Potassium 3.4 Chloride 106 Carbon Dioxide 29 BUN 29 H Creatinine 1.24 Estimated GFR > 60 BUN/Creatinine Ratio 23.4 H Glucose 110 Calcium 8.7 PFSH Medical History Rhinitis, nonallergic, chronic Left knee pain Obesity (BMI 30-39.9) Hypertension Obstructive sleep apnea of adult Snoring Dehydration Sinusitis Cephalgia Febrile illness Corneal abrasion, left Surgical History Meniscus degeneration Social History marital status: details: tru Ramirez, lives in [place] household members: spouse lives independently: Yes caregiver/support person: No housing: house education level: other 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 The acute mesenteric ischemia resolved with lysis of adhesions. #Post operative ileus-NGT await for return of bowel function -Remove epidural -Remove hawkins cath -SCDs and pLovenox
--- NOTE | 2023-06-04 14:10 | PC.NURSE ---
Addendum entered by Briana Atkins R.N. 06/04/23 17:45: In am, pt noted to be on 5L oxymask (increased from 2L NC at beginning of shift boss). RN assessed pt, pt stated difficult to take a deep breath, and RN notified provider. Provider ordered CXRAY. Pt requesting ice chips frequently throughout day. Bowel sounds and small amount of new drainage on surgical dressing noted and reported to provider. VSS. Original Note: Per provider order, discontinued epidural at 1345. Tip intact.
[2023-06-04] MEDS: OXYCODONE IR 10 MG TABLET PO ×2 (15:17→19:15)
--- NOTE | 2023-06-04 18:27 | PT.IIE ---
Current Diagnoses Unspecified intestinal obstruction, unspecified as to partial versus complete obstruction (06/01/23) Surgery Performed Operation Date: 06/02/23 12:15 Actual Procedures p Exploratory laparotomy with lysis of adhesion - Efe Drake MD Surgical History (Last Reviewed 06/02/23 @ 09:32 by Efe Drake MD) Meniscus degeneration Medical History (Last Reviewed 06/02/23 @ 09:32 by Efe Drake MD) Cephalgia Corneal abrasion, left Dehydration Febrile illness Hypertension Left knee pain Obesity (BMI 30-39.9) Obstructive sleep apnea of adult Rhinitis, nonallergic, chronic Sinusitis Snoring Physical Therapy Inpatient Evaluation/Re-Eval M1 PT/OT-IP Prior Functional Status Start: 06/04/23 18:16 Freq: NEEDED Status: Active Protocol: Document 06/04/23 18:16 [facility] (Rec: 06/04/23 18:27 [facility] [id number]) Medical Review Prior Functional Status Medical History Reviewed Yes Diet/Fluid Consistency Regular Communication WNL Mobility and Gait indp w/o AD tyipcally very active. Have 10 acres and chickens Social History Household Members spouse Living Arrangements Other Number of Floors (Floors) One Floor Number of Stairs To Enter/Railing? pt typically lives in w/JOY but plans to stay in their SL cabin w/o steps to enter Home Environment Standard Height Toilet,Walk in Shower Home Equipment Front Wheel Walker,Straight Cane,Shower Seat without Backrest,Long Handled Shoe Horn,Client Associate,Grab Bars In Shower Employment Status Retired Additional Social History Comment able to help M2 PT-IP Current Condition Start: 06/04/23 18:16 Freq: NEEDED Status: Active Protocol: Document 06/04/23 18:16 [facility] (Rec: 06/04/23 18:27 [facility] [id number]) Physical Therapy Current Condition Current Condition Evaluation Date 06/04/23 Treatment Diagnosis ex lap lysis of adhesions Onset Date 06/02/23 M3 PT-IP Subjective Start: 06/04/23 18:16 Freq: NEEDED Status: Active Protocol: Document 06/04/23 18:16 [facility] (Rec: 06/04/23 18:27 [facility] [id number]) Subjective Physical Therapy Visit Type Type Initial Evaluation Visit Start Time 17:35 Visit Stop Time 18:08 Total Visit Minutes 38 Number of DIRECTOR OF ACQUISITIONS Visits 0 Therapy Pain Assessment Pain When Pain Assessed During Mobility Pain Present Pain Present Pain Reported Location Lower Medial Abdomen Intensity 6 Description Pressure M4 PT-IP Mobility and Gait Start: 06/04/23 18:16 Freq: NEEDED Status: Active Protocol: Document 06/04/23 18:16 [facility] (Rec: 06/04/23 18:27 [facility] [id number]) PT-Bed Mobility Assessment Rolling Type of Rolling Log Rolling,Roll to Right Level of Assist Minimal Assistance Supine to Sit Supine to Sit Moderate Assistance,Head of Bed Elevated,Bedrails Sit to Supine Sit to Supine Moderate Assistance,Bedrails PT-Transfer Assessment Sit to and From Stand Sit to and from Stand Standby Assistance,Use of Upper Extremities Equipment Transfer Assistive Device Gait Belt,Front Wheeled Walker Gait Assessment Gait Gait Assistance Required: Standby Assistance Distance (Feet) 400 Able to Maintain Weight Bearing Status Yes During Gait Assistive Devices Assistive Device Gait Belt,Front Wheeled Walker Orthotic/Prosthetic Devices or Brace: Yes Factors Limiting Gait Function Factors Limiting Gait Function Decreased Strength,Pain Comments Gait Comments log roll for supine to sit mod A and sit to stand SBA then amb w/FWW SBA to bathroom and voided in urinal standing indep; amb to sink to wash hands SBA FWW then amb in hallway SBA w/FWW. Pt did sit on bed SBA then mod A to get back in bed w/log roll w/help of feet and pt using rails. Pt had pain L ribs after rolling that improved w/breathing to relax. pt left w/RN and call light in reach. PT-Balance Assessment Sitting Balance and Reactions Static Sitting Balance Ability Good Dynamic Sitting Balance Ability Good Standing Balance and Reactions Static Standing Balance Ability Good Dynamic Standing Balance Ability Good Device Used FWW M5 PT-IP Objective Assessments Start: 06/04/23 18:16 Freq: NEEDED Status: Active Protocol: Document 06/04/23 18:16 [facility] (Rec: 06/04/23 18:27 [facility] [id number]) Orientation Orientation/Cognition Level of Alertness Alert Language Function Ability No Deficits Noted Safety Awareness Understands Safety Issues Memory Description No Deficits Noted Strength Lower Extremity Strength Assessment Within Functional Limits M6 PT-IP Treatment Start: 06/04/23 18:16 Freq: NEEDED Status: Active Protocol: Document 06/04/23 18:16 [facility] (Rec: 06/04/23 18:27 [facility] [id number]) Physical Therapy Treatment Education Education Provided Safety M7 PT-IP Assessment and Plan Start: 06/04/23 18:16 Freq: NEEDED Status: Active Protocol: Document 06/04/23 18:16 [facility] (Rec: 06/04/23 18:27 [facility] [id number]) PT Summary Assessment and Plan Potential Rehabilitation Potential Good Status of Condition at Evaluation Evolving Summary Impairments Pain,ROM,Strength,Balance,Bed Mobility,Transfers,Gait, Activity Tolerance Assessment Summary Pt presents 2 days s/p ex lap of adhesions d/t SBO with post op ilieus. he is motivated to get moving and understands importance. pt wearing abdominal binder throughout mobility. He did well with mobility, but did have difficulty w/log roll. Discussed possible home equipment like sock aide and shower chair may be helpful along w/geodetic surveyor technologist and pt does have some of this equipment. His is very supportive and willing to rent what is needed to help pt. he would benefit from skilled PT to improve mobility in order to be safe to return home. Goals Bed Mobility Goal Independent Transfer Goal Independent Gait Goal Independent Gait Distance 300ft w/least restrictive AD Days to Meet Goals 5 Frequency of Treatment Frequency Of Treatment Once a Day Treatment Plan Physical Therapy Treatment Plan Bed Mobility Training,Transfer Training,Gait Training, Therapeutic Exercise,Balance Retraining,Neuromuscular Re-ed Other Recommendations and Next Treatment work on log roll and progress Focus towards gait w/less restrive AD if able Weight Bearing Status Weight Bearing Status Weight Bear as Tolerated Recommendations To Nursing Amount of Assist Needed Standby Assistance Discharge Recommendations PT Discharge Recommendations Home with Assistance Transportation Needs at Discharge Private Vehicle
[2023-06-04] MEDS: ENOXAPARIN 40 MG/0.4 ML SYRINGE SUBCUT (18:40)
[2023-06-05] VITALS (12 sets, daily range): BP systolic 112–156; BP diastolic 64–85; PULSE 66–82; RESP 16–20; TEMP 36.6–37.2; O2SAT 93–98
[2023-06-05] MEDS: ONDANSETRON 4 MG/2 ML INJ IV (00:52)
[2023-06-05] MEDS: OXYCODONE IR 10 MG TABLET PO ×3 (00:52→20:27)
[2023-06-05] MEDS: HYDROMORPHONE 1 MG INJ IV ×4 (01:49→16:44)
[2023-06-05 05:04] LABS: Add Manual Diff / Slide Review NO; Basophils Absolute Auto 0 /uL (0-100); Basophils Percent Auto 0.3 % (0-2); Eosinophils Absolute Auto 200 /uL (0-450); Eosinophils Percent Auto 1.7 % (2-4); Hematocrit 37.3 % (41-53); Hemoglobin 12.9 g/dL (13.5-17.5); Lymphocytes Absolute Auto 500 /uL (1100-4500); Lymphocytes Percent Auto 4.3 % (25-40); Mean Corpuscular HGB Conc 34.6 % (30-36); Mean Corpuscular Hemoglobin 30.1 PG (26-34); Mean Corpuscular Volume 87.1 fL (80-100); Monocytes Absolute Auto 600 /uL (0-900); Monocytes Percent Auto 5.4 % (3-14); Neutrophils Absolute Auto 9200 /uL (1500-7000); Neutrophils Percent Auto 88.3 % (50-75); Platelet Count 152 X10^3/uL (150-400); Red Blood Cell Count 4.28 X10^6/uL (4.5-5.9); Red Cell Distribution Width 14.2 % (11.6-14.8); White Blood Cell Count 10.5 X10^3/uL (4.5-11.0)
[2023-06-05 05:11] LABS: BUN Creatinine Ratio 24.3 (6-22); Blood Urea Nitrogen 25 mg/dL (9-20); Calcium 8.8 mg/dL (8.4-10.2); Carbon Dioxide 31 mmol/L (22-32); Chloride 103 mmol/L (98-107); Estimated Glomerular Filt Rate > 60 mL/min (>60); Glucose 115 mg/dL (80-110); HEMOLYSIS < 15 (0-50); Potassium 3.4 mmol/L (3.4-5.1); Sodium 140 mmol/L (137-145)
[2023-06-05] MEDS: SODIUM CHLORIDE 0.9% 1,000 ML 125 ML IV ×2 (05:43→16:11)
--- NOTE | 2023-06-05 06:28 | PC.NURSE ---
Graduate Nurse Note-Patient dozed little, was woke few times with severe pain to left torso, relieved to 3-4/10 after IV Dilaudid or PO oxycodone. Auscultated diminished rub to LLL. O2 increased to 6L Oximask, still desats to low 80s on RA, is using I.S. as well as he can, difficult to take a deep breath 600ml ice chips in, 2300ml bile out into NGT, difference of 1700ml true bile output. Faint tympanic bowel sounds hypoactive in upper quadrants, negative lower, denies flatus, IV Zofran given once for nausea. Ambulated in halls with SBA.
[2023-06-05] MEDS: AMLODIPINE 5 MG TABLET PO (08:47)
[2023-06-05] MEDS: cloNIDine 0.1 MG TABLET 0.2 MG PO ×2 (08:47→20:27)
[2023-06-05] MEDS: LOSARTAN 50 MG TABLET 100 MG PO (08:48)
[2023-06-05] MEDS: OXYBUTYNIN 5 MG TABLET PO (08:55)
[2023-06-05] MEDS: BENZOCAINE/MENTHOL 1 LOZ PKT 1 EACH PO ×2 (08:55→18:44)
[2023-06-05] MEDS: SODIUM CHLORIDE 0.9% FLUSH 10 ML IV (08:55)
[2023-06-05] MEDS: POTASSIUM CHLORIDE 20 MEQ TAB 40 MEQ PO (09:10)
[2023-06-05] MEDS: ENOXAPARIN 40 MG/0.4 ML SYRINGE SUBCUT (12:24)
--- NOTE | 2023-06-05 12:37 | CM.DPC ---
DCP Cont. Reviewed EMR and team rounds for status updates. The epidural and hawkins have been removed, waiting for return of bowel function. Anticipate plan for pt to return home w/family, no OP therapies recommended at this time. Will continue to monitor.
--- NOTE | 2023-06-05 14:15 | PT.IPTN ---
Current Diagnoses Unspecified intestinal obstruction, unspecified as to partial versus complete obstruction (06/01/23) Surgery Performed Operation Date: 06/02/23 12:15 Actual Procedures p Exploratory laparotomy with lysis of adhesion - Efe Drake MD Physical Therapy Treatment Note M2 PT-IP Current Condition Start: 06/04/23 18:16 Freq: NEEDED Status: Active Protocol: Document 06/04/23 18:16 [facility] (Rec: 06/04/23 18:27 [facility] [id number]) Physical Therapy Current Condition Current Condition Evaluation Date 06/04/23 Treatment Diagnosis ex lap lysis of adhesions Onset Date 06/02/23 M3 PT-IP Subjective Start: 06/04/23 18:16 Freq: NEEDED Status: Active Protocol: Document 06/05/23 14:15 AB (Rec: 06/05/23 16:00 AB [id number]) Subjective Physical Therapy Visit Type Type Treatment Note Visit Start Time 14:15 Visit Stop Time 14:55 Total Visit Minutes 40 Number of OLERICULTURE TEACHER Visits 0 Physical Therapy Visit Comments Patient Comments agreeable to do PT Therapy Pain Assessment Pain When Pain Assessed At Rest Pain Present Pain Present Pain Reported Location Lower Medial Abdomen Scale Used pain scale not stated Pain Management Techniques Distraction,Modification of Treatment,Re-positioning, Timing of Activity with Medications M4 PT-IP Mobility and Gait Start: 06/04/23 18:16 Freq: NEEDED Status: Active Protocol: Document 06/05/23 14:15 AB (Rec: 06/05/23 16:00 AB [id number]) PT-Bed Mobility Assessment Rolling Type of Rolling Log Rolling Level of Assist Moderate Assistance,1 Person Assistance Supine to Sit Supine to Sit Moderate Assistance,1 Person Assistance Sit to Supine Sit to Supine Moderate Assistance,Total Assistance PT-Transfer Assessment Sit to and From Stand Sit to and from Stand Contact Guard Assistance,1 Person Assistance,Use of Upper Extremities Equipment Transfer Assistive Device Gait Belt,Front Wheeled Walker Orthotic/Prosthetic Devices or Brace: No Transfers Transfer Destination Bed,Chair Transfer Technique ambulated Transfer Ability Level of Assist Standby Assistance,Contact Guard Assistance,1 Person Assistance,Use of Upper Extremities Comments Mobility Comments pt sitting on the chair. spouse in room. pt agreeable to do PT. pt stated that he does not know his abdominal precautions and log roll. O2 sat at rest: 95% educated pt and spouse regarding pt's abdominal precautions and how to do log roll supine<>sit. pt provided with post-op handout. pt completed sit to stand from the chair CGA. presents with difficulty with sit to stand and required increase time to complete. pt able to take a few steps using FWW CGA to EOB . (+) SOB. O2 sat 79-82% sitting on EOB. pt stated that this is due to his abdominal distention. cued for deep breathing and O2 sat increased to 89%. pt completed log roll sit<>supine mod A and max cues. pt required increase time to complete. pt stated that he does not need O2 for walking and had walked with nursing earlier today without O2. pt ambulated in the hallway using FWW SBA to CGA>350 ft (~ 500ft). (+) LOB x 2 requiring CGA for recovery. pt is not in respiratory distress and stated that he is able to breath better when he is upright and walking. pt walked back to his room and sat on the chair. positioned pt on the chair. call light and table placed within reach. Gait Assessment Gait Gait Assistance Required: Standby Assistance,Contact Guard Assist Distance (Feet) 500 Able to Maintain Weight Bearing Status Yes During Gait Assistive Devices Assistive Device Gait Belt,Front Wheeled Walker Orthotic/Prosthetic Devices or Brace: No Gait Deviations General Gait Pattern Antalgic,Decreased Stride Length,Decreased Feet Clearance Factors Limiting Gait Function Factors Limiting Gait Function Decreased Activity Tolerance, Decreased Strength,Pain,Poor Balance,Poor Safety Awareness, Respiratory Distress M5 PT-IP Objective Assessments Start: 06/04/23 18:16 Freq: NEEDED Status: Active Protocol: Document 06/04/23 18:16 [facility] (Rec: 06/04/23 18:27 [facility] [id number]) Orientation Orientation/Cognition Level of Alertness Alert Language Function Ability No Deficits Noted Safety Awareness Understands Safety Issues Memory Description No Deficits Noted Strength Lower Extremity Strength Assessment Within Functional Limits M6 PT-IP Treatment Start: 06/04/23 18:16 Freq: NEEDED Status: Active Protocol: Document 06/05/23 14:15 AB (Rec: 06/05/23 16:00 AB [id number]) Physical Therapy Treatment Education Education Provided Precautions,Post-Op Packet, Safety M7 PT-IP Assessment and Plan Start: 06/04/23 18:16 Freq: NEEDED Status: Active Protocol: Document 06/05/23 14:15 AB (Rec: 06/05/23 16:00 [email or web address]) PT Summary Assessment and Plan Potential Rehabilitation Potential Fair Summary Impairments Pain,ROM,Strength,Balance, Coordination,Sensation,Tone, Cognition,Bed Mobility, Transfers,Gait,Activity Tolerance Progress Towards Goals Slow Progress due to Medical Issues,Slow Progress due to Activity Tolerance,Slow Progress - Other Assessment Summary pt requiring SBA to CGA with ambulation using FWW but requiring mod A for bed mobility log roll bed mobility . pt lives with his spouse and caregiver training will be conducted when appropriate. will continue to assess progress. pt will need a FWW at this time and spouse stated that they have one to use for pt at home. Goals Bed Mobility Goal Independent Transfer Goal Independent Gait Goal Independent Gait Distance >300ft w/least restrictive AD Days to Meet Goals 10 Frequency of Treatment Frequency Of Treatment Once a Day Treatment Plan Physical Therapy Treatment Plan Bed Mobility Training,Transfer Training,Gait Training, Therapeutic Exercise,Balance Retraining,Neuromuscular Re-ed Other Recommendations and Next Treatment bed mobility, ambulation Focus Precautions Abdominal Surgery Precautions Log Roll,Lifting Restrictions, Gait Belt above Incisional Area Recommendations To Nursing Amount of Assist Needed Standby Assistance Discharge Recommendations PT Discharge Recommendations Home with Assistance Transportation Needs at Discharge Private Vehicle
--- NOTE | 2023-06-05 18:26 | PC.NURSE ---
Addendum entered by Bri Souza R.N. 06/05/23 18:56: 325 true NGT output this shift. Original Note: Shift note Pt. sitting up in chair all shift, ambulated in hallway x2, pt. reports breathing better when standing. Titrated O2 down to 3L via Oximask, sats remain 94-96%, pt. continues to desat when oxygen removed but does not c/o dyspnea. Few BT noted in upper quadrants, has not been passing gas. C/O sore throat/dry mouth from NGT and alternating between ice chips, gum, and lifesavers to reduce discomfort and dryness. Moderate pain noted in left abdomen, given PO Oxycodone and IV Dilaudid which provides relief. One episode of severe, acute, sharp pain noted in afternoon with tight abdomen and dyspnea, NGT briefly placed on continuous suction and pt. belched multiple times which alleviated discomfort, no similar episodes noted.
--- NOTE | 2023-06-05 18:37 | PM.PNPO.1 ---
Subjective Subjective Date Patient Seen: 06/05/23 Time Patient Seen: 18:37 Interval history: exlap for SBO no bowel resection -NGT no flatus or BM -No acute events -Pain well controlled Exam Vital Signs (past 8 hours): - 06/05/23 11:00 06/05/23 12:00 06/05/23 15:48 Temperature 97.8 F Pulse Rate 72 79 Respiratory Rate 20 20 Blood Pressure 112/85 119/64 Pulse Oximetry 95 95 94 Oxygen Delivery Method Oximask Oxygen Flow Rate 4 4 4 06/05/23 15:52 Temperature Pulse Rate Respiratory Rate Blood Pressure Pulse Oximetry 94 Oxygen Delivery Method Oximask Oxygen Flow Rate 4 Fraction of Inspired Oxygen 44 SaO2/FiO2 Ratio 213 Oxygen Delivery Method Oximask Oxygen Flow Rate 4 Narrative Exam Narrative: Gen-Adult man alert and oriented Abdomen-Distended compressible. Bilious NGT Objective Labs 06/05/23 04:07 06/05/23 04:07 Labs: Laboratory Results - last 24 hr 06/05/23 04:07 WBC 10.5 RBC 4.28 L Hgb 12.9 L Hct 37.3 L MCV 87.1 MCH 30.1 MCHC 34.6 RDW 14.2 Plt Count 152 Neut % (Auto) 88.3 H Lymph % (Auto) 4.3 L [place] % (Auto) 5.4 Eos % (Auto) 1.7 L Baso % (Auto) 0.3 Neut # (Auto) 9200 H Lymph # (Auto) 500 L [place] # (Auto) 600 Eos # (Auto) 200 Baso # (Auto) 0 Sodium 140 Potassium 3.4 Chloride 103 Carbon Dioxide 31 BUN 25 H Creatinine 1.03 Estimated GFR > 60 BUN/Creatinine Ratio 24.3 H Glucose 115 H Calcium 8.8 PFSH Medical History Rhinitis, nonallergic, chronic Left knee pain Obesity (BMI 30-39.9) Hypertension Obstructive sleep apnea of adult Snoring Dehydration Sinusitis Cephalgia Febrile illness Corneal abrasion, left Surgical History Meniscus degeneration Social History marital status: details: tru Ramirez, lives in [place] household members: spouse lives independently: Yes caregiver/support person: No housing: house education level: other 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 -Continue NGT -Await return of bowel function -pLovenox -Outpatient GI for new diagnosis Crohn's disease
[2023-06-06] VITALS (9 sets, daily range): BP systolic 139–164; BP diastolic 63–76; PULSE 69–87; RESP 16–21; TEMP 36–37.6; O2SAT 90–95
[2023-06-06] MEDS: SODIUM CHLORIDE 0.9% 1,000 ML 125 ML IV ×2 (00:25→08:32)
[2023-06-06 03:54] LABS: BUN Creatinine Ratio 27.4 (6-22); Blood Urea Nitrogen 26 mg/dL (9-20); Calcium 8.8 mg/dL (8.4-10.2); Carbon Dioxide 33 mmol/L (22-32); Chloride 103 mmol/L (98-107); Estimated Glomerular Filt Rate > 60 mL/min (>60); Glucose 117 mg/dL (80-110); HEMOLYSIS 23 (0-50); Magnesium 2.2 mg/dL (1.6-2.3); Potassium 3.4 mmol/L (3.4-5.1); Sodium 141 mmol/L (137-145)
[2023-06-06] MEDS: ONDANSETRON 4 MG/2 ML INJ IV ×3 (04:00→15:35)
[2023-06-06] MEDS: POTASSIUM CHLORIDE 20 MEQ TAB 40 MEQ PO (08:40)
[2023-06-06] MEDS: OXYBUTYNIN 5 MG TABLET PO (08:43)
[2023-06-06] MEDS: LOSARTAN 50 MG TABLET 100 MG PO (08:43)
[2023-06-06] MEDS: cloNIDine 0.1 MG TABLET 0.2 MG PO ×2 (08:43→21:36)
[2023-06-06] MEDS: ENOXAPARIN 40 MG/0.4 ML SYRINGE SUBCUT (08:44)
[2023-06-06] MEDS: AMLODIPINE 5 MG TABLET PO (08:44)
[2023-06-06] MEDS: HYDROMORPHONE 1 MG INJ IV ×2 (11:15→15:29)
--- NOTE | 2023-06-06 13:08 | PT.IPTN ---
Current Diagnoses Unspecified intestinal obstruction, unspecified as to partial versus complete obstruction (06/01/23) Surgery Performed Operation Date: 06/02/23 12:15 Actual Procedures p Exploratory laparotomy with lysis of adhesion - Efe Drake MD Physical Therapy Treatment Note M2 PT-IP Current Condition Start: 06/04/23 18:16 Freq: NEEDED Status: Active Protocol: Document 06/04/23 18:16 [facility] (Rec: 06/04/23 18:27 [facility] [id number]) Physical Therapy Current Condition Current Condition Evaluation Date 06/04/23 Treatment Diagnosis ex lap lysis of adhesions Onset Date 06/02/23 M3 PT-IP Subjective Start: 06/04/23 18:16 Freq: NEEDED Status: Active Protocol: Document 06/06/23 13:46 TS (Rec: 06/06/23 13:59 TS [id number]) Subjective Physical Therapy Visit Type Type Treatment Note Visit Start Time 13:08 Visit Stop Time 13:38 Total Visit Minutes 30 Number of CAGE LOADER Visits 1 Physical Therapy Visit Comments Patient Comments agreeable to do PT M4 PT-IP Mobility and Gait Start: 06/04/23 18:16 Freq: NEEDED Status: Active Protocol: Document 06/06/23 13:46 TS (Rec: 06/06/23 13:59 TS [id number]) PT-Transfer Assessment Sit to and From Stand Sit to and from Stand Standby Assistance,Use of Upper Extremities Equipment Transfer Assistive Device Gait Belt,Front Wheeled Walker Orthotic/Prosthetic Devices or Brace: No Comments Mobility Comments Pt found resting on 3.5L of o2 , reports not needing it for PT, pt taken off o2, nursing clamped NG tube. Sit to stand with FWW SBA with BUE support pushing from arms of chair. Pt ambulated ~400'SBA with normal pacing gait, did not observe any SOB. Pt ambulated back to room, was left in chair with all needs, daughter present. Gait Assessment Gait Gait Assistance Required: Standby Assistance Distance (Feet) 400 Able to Maintain Weight Bearing Status Yes During Gait Assistive Devices Assistive Device Gait Belt,Front Wheeled Walker Orthotic/Prosthetic Devices or Brace: No Gait Deviations General Gait Pattern Antalgic,Decreased Stride Length,Decreased Feet Clearance Factors Limiting Gait Function Factors Limiting Gait Function Decreased Activity Tolerance, Decreased Strength,Pain,Poor Balance,Poor Safety Awareness, Respiratory Distress Comments Gait Comments See mobility comments PT-Balance Assessment Sitting Balance and Reactions Static Sitting Balance Ability Good Dynamic Sitting Balance Ability Good Standing Balance and Reactions Static Standing Balance Ability Good Dynamic Standing Balance Ability Good Device Used FWW M5 PT-IP Objective Assessments Start: 06/04/23 18:16 Freq: NEEDED Status: Active Protocol: Document 06/04/23 18:16 [facility] (Rec: 06/04/23 18:27 [facility] [id number]) Orientation Orientation/Cognition Level of Alertness Alert Language Function Ability No Deficits Noted Safety Awareness Understands Safety Issues Memory Description No Deficits Noted Strength Lower Extremity Strength Assessment Within Functional Limits M6 PT-IP Treatment Start: 06/04/23 18:16 Freq: NEEDED Status: Active Protocol: Document 06/06/23 13:46 TS (Rec: 06/06/23 13:59 TS [id number]) Physical Therapy Treatment Education Education Provided Precautions,Post-Op Packet, Safety M7 PT-IP Assessment and Plan Start: 06/04/23 18:16 Freq: NEEDED Status: Active Protocol: Document 06/06/23 13:46 TS (Rec: 06/06/23 13:59 TS [id number]) PT Summary Assessment and Plan Potential Rehabilitation Potential Fair Summary Impairments Pain,ROM,Strength,Balance, Coordination,Sensation,Tone, Cognition,Bed Mobility, Transfers,Gait,Activity Tolerance Progress Towards Goals Slow Progress due to Medical Issues,Slow Progress due to Activity Tolerance,Slow Progress - Other Assessment Summary Eric continues to do well with his mobility. He is SBA for sit to stands with FWW, demonstrates good standing balance. He ambulated ~400'SBA with FWW, has a normal pacing gait, no LOB or buckling of knees. He demonstrates good safety awareness with his mobility. PT is recommending home with assist. Goals Bed Mobility Goal Independent Transfer Goal Independent Gait Goal Independent Gait Distance >300ft w/least restrictive AD Days to Meet Goals 10 Frequency of Treatment Frequency Of Treatment Once a Day Treatment Plan Physical Therapy Treatment Plan Bed Mobility Training,Transfer Training,Gait Training, Therapeutic Exercise,Balance Retraining,Neuromuscular Re-ed Other Recommendations and Next Treatment bed mobility, ambulation Focus Precautions Abdominal Surgery Precautions Log Roll,Lifting Restrictions, Gait Belt above Incisional Area Recommendations To Nursing Amount of Assist Needed Standby Assistance Discharge Recommendations PT Discharge Recommendations Home with Assistance Transportation Needs at Discharge Private Vehicle
--- NOTE | 2023-06-06 15:10 | CM.DPC ---
DCP Cont. Reviwed EMR and team rounds for updates. Pt not yet ready for d/c, he continues to be very uncomfortable, waiting for bowel function to recover. Family at bedside most of the day, this [employer] provided information about [facility] rentals, per their request. Plan is to d/c home to his [id number] with multiple family cg's assisting once he's medically stable. Unsure if he will need cabulance at that point or will be able to d/c with family vehicle transport. Continue to monitor.
--- NOTE | 2023-06-06 17:41 | PM.PNPO.1 ---
Subjective Subjective Date Patient Seen: 06/06/23 Time Patient Seen: 17:41 Exam Vital Signs (past 8 hours): - 06/06/23 11:37 06/06/23 12:00 06/06/23 16:16 Pulse Rate 77 Respiratory Rate 20 Blood Pressure 149/68 H Pulse Oximetry 90 L 90 L 95 Oxygen Delivery Method Oximask Oximask Oxygen Flow Rate 3 3 4 06/06/23 16:16 Pulse Rate 70 Respiratory Rate 20 Blood Pressure 148/71 H Pulse Oximetry 95 Oxygen Delivery Method Oxygen Flow Rate 4 Fraction of Inspired Oxygen 44 SaO2/FiO2 Ratio 213 Oxygen Delivery Method Oximask Oxygen Flow Rate 4 Narrative Exam Narrative: passing gas. Pain decreased. Const General: cooperative and comfortable Nutritional Appearance: overweight Orientation: alert, awake and oriented x3 HENMT Head: normocephalic and atraumatic Ears: hearing grossly normal bilaterally Eyes Periorbital: periorbital findings normal Sclera: sclerae normal Neck Neck: normal visual inspection and trachea midline Chest Chest: normal inspection of the chest Resp Effort & Inspection: normal respiratory effort and able to speak in complete sentences Cardio Rate: regular rate Rhythm: regular rhythm GI Palpation: soft and No tender Other: old blood on bandage Skin General: elasticity normal and turgor normal Neuro General: patient alert, patient awake and patient oriented x3 Psych Appearance: grossly normal Mental Status: mental status grossly normal Judgment: judgment good Objective Labs 06/05/23 04:07 06/06/23 03:10 Labs: Laboratory Results - last 24 hr 06/06/23 03:10 Sodium 141 Potassium 3.4 Chloride 103 Carbon Dioxide 33 H BUN 26 H Creatinine 0.95 Estimated GFR > 60 BUN/Creatinine Ratio 27.4 H Glucose 117 H Calcium 8.8 Magnesium 2.2 PFSH Medical History Rhinitis, nonallergic, chronic Left knee pain Obesity (BMI 30-39.9) Hypertension Obstructive sleep apnea of adult Snoring Dehydration Sinusitis Cephalgia Febrile illness Corneal abrasion, left Surgical History Meniscus degeneration Social History marital status: details: tru Ramirez, lives in [place] household members: spouse lives independently: Yes caregiver/support person: No housing: house education level: 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 Postoperative plan narrative: Plan:NGT removed, clear liquid diet. Can wear CPAP from home Time Spent With Patient Time with patient: 15-24 minutes
--- NOTE | 2023-06-06 18:26 | PC.NURSE ---
Shift note Pt. discouraged this AM, states that he is not making as much progress as he should. Noted increased BT in all quadrants during assessment, pt. reports belching frequently. BT continued to increase throughout shift and pt. reports flatus, NGT clamped @ 1350, order obtained to DC NGT approx. 1600. Diet advanced to clear liquids, pt. ate popsicles x2 plus jello and tea, no nausea or vomiting, abdomen remains soft with continued flatus. IVF DC, fine crackles noted in bases.
[2023-06-06] MEDS: ACETAMINOPHEN 325 MG TABLET 650 MG PO (19:51)
[2023-06-06] MEDS: OXYCODONE IR 5 MG TABLET PO (21:36)
[2023-06-06] MEDS: SODIUM CHLORIDE 0.9% FLUSH 10 ML IV (21:40)
[2023-06-07] MEDS: OXYCODONE IR 5 MG TABLET PO ×3 (04:15→16:13)
[2023-06-07 04:54] LABS: BUN Creatinine Ratio 24.3 (6-22); Blood Urea Nitrogen 25 mg/dL (9-20); Calcium 9.1 mg/dL (8.4-10.2); Carbon Dioxide 37 mmol/L (22-32); Chloride 102 mmol/L (98-107); Estimated Glomerular Filt Rate > 60 mL/min (>60); Glucose 112 mg/dL (80-110); HEMOLYSIS < 15 (0-50); Magnesium 2.2 mg/dL (1.6-2.3); Potassium 3.4 mmol/L (3.4-5.1); Sodium 142 mmol/L (137-145)
--- NOTE | 2023-06-07 06:56 | PC.NURSE ---
pt has been up in the recliner all shift; he ambulates ad scot w/ fww in halls; he was medicated twice with po pain meds with good relief; tolerating po intake; he had a bowel movement this shift
[2023-06-07 07:48] VITALS: BP 145/67; PULSE 62; RESP 17; TEMP 36.8; O2SAT 94
[2023-06-07 08:00] VITALS: O2SAT 94
[2023-06-07 08:34] VITALS: BP 145/67; PULSE 62
[2023-06-07] MEDS: ENOXAPARIN 40 MG/0.4 ML SYRINGE SUBCUT (08:34)
[2023-06-07] MEDS: cloNIDine 0.1 MG TABLET 0.2 MG PO (08:34)
[2023-06-07 08:35] VITALS: BP 145/67; PULSE 62
[2023-06-07] MEDS: LOSARTAN 50 MG TABLET 100 MG PO (08:35)
[2023-06-07] MEDS: AMLODIPINE 5 MG TABLET PO (08:35)
[2023-06-07] MEDS: POTASSIUM CHLORIDE 20 MEQ TAB 40 MEQ PO (08:36)
[2023-06-07] MEDS: SODIUM CHLORIDE 0.9% FLUSH 10 ML IV (08:36)
[2023-06-07] MEDS: FUROSEMIDE 20 MG/2 ML VIAL IV (08:36)
--- NOTE | 2023-06-07 10:26 | PM.PNPO.1 ---
Subjective Subjective Date Patient Seen: 06/07/23 Time Patient Seen: 10:26 Interval history: Had BM last night. Tolerating po. Abdominal pain with coughing. Exam Vital Signs (past 8 hours): - 06/07/23 07:00 06/07/23 07:48 06/07/23 08:00 Temperature 98.2 F Pulse Rate 62 Respiratory Rate 17 Blood Pressure 145/67 H Pulse Oximetry 94 94 Oxygen Delivery Method Nasal Cannula Nasal Cannula Oxygen Flow Rate 0 3 06/07/23 08:34 06/07/23 08:35 Temperature Pulse Rate 62 62 Respiratory Rate Blood Pressure 145/67 H 145/67 H Pulse Oximetry Oxygen Delivery Method Oxygen Flow Rate Fraction of Inspired Oxygen 44 SaO2/FiO2 Ratio 213 Oxygen Delivery Method Nasal Cannula Oxygen Flow Rate 3 Narrative Exam Narrative: abdomen soft, distended, marsha in place Objective Labs 06/05/23 04:07 06/07/23 04:00 Labs: Laboratory Results - last 24 hr 06/07/23 04:00 Sodium 142 Potassium 3.4 Chloride 102 Carbon Dioxide 37 H BUN 25 H Creatinine 1.03 Estimated GFR > 60 BUN/Creatinine Ratio 24.3 H Glucose 112 H Calcium 9.1 Magnesium 2.2 PFSH Medical History Rhinitis, nonallergic, chronic Left knee pain Obesity (BMI 30-39.9) Hypertension Obstructive sleep apnea of adult Snoring Dehydration Sinusitis Cephalgia Febrile illness Corneal abrasion, left Surgical History Meniscus degeneration Social History marital status: details: tru Ramirez, lives in [place] household members: spouse lives independently: Yes caregiver/support person: No housing: house education level: 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
[2023-06-07 12:00] VITALS: O2SAT 93
--- NOTE | 2023-06-07 15:00 | CM.DPNOTE ---
DCP Note Per nursing staff, pt had a bowel movement last night. Now able to advance his diet to liquid diet. PT recs home with assistance. Plan: dc to [id number] house when medically stable. Continue to advance his diet. No CM needs identified at this time. Follow as needed. JOSE MIGUEL Dinh
--- NOTE | 2023-06-07 15:35 | PT.IPTN ---
Current Diagnoses Unspecified intestinal obstruction, unspecified as to partial versus complete obstruction (06/01/23) Surgery Performed Operation Date: 06/02/23 12:15 Actual Procedures p Exploratory laparotomy with lysis of adhesion - Efe Drake MD Physical Therapy Treatment Note M2 PT-IP Current Condition Start: 06/04/23 18:16 Freq: NEEDED Status: Active Protocol: Document 06/04/23 18:16 [facility] (Rec: 06/04/23 18:27 [facility] [id number]) Physical Therapy Current Condition Current Condition Evaluation Date 06/04/23 Treatment Diagnosis ex lap lysis of adhesions Onset Date 06/02/23 M3 PT-IP Subjective Start: 06/04/23 18:16 Freq: NEEDED Status: Active Protocol: Document 06/07/23 15:49 TS (Rec: 06/07/23 15:54 TS [id number]) Subjective Physical Therapy Visit Type Type Treatment Note Visit Start Time 15:35 Visit Stop Time 15:48 Total Visit Minutes 13 Number of BLOOD OR BLOOD BANK TECHNICIAN Visits 2 Physical Therapy Visit Comments Patient Comments Pt reports eating normal diet and has had 3 BM's. Pt is agreeable to PT. M4 PT-IP Mobility and Gait Start: 06/04/23 18:16 Freq: NEEDED Status: Active Protocol: Document 06/07/23 15:49 TS (Rec: 06/07/23 15:54 TS [id number]) PT-Transfer Assessment Sit to and From Stand Sit to and from Stand Standby Assistance,Use of Upper Extremities Equipment Transfer Assistive Device Gait Belt,Front Wheeled Walker Orthotic/Prosthetic Devices or Brace: No Comments Mobility Comments Sit to stand with FWW SBA with BUE support pushing from arms of chair. He ambulated ~400' SBA with step thru gait, had no buckling or LOB. Pt amublated back to room, requested to use toilet. Pt was left on toilet, RN notified. Gait Assessment Gait Gait Assistance Required: Standby Assistance Distance (Feet) 400 Able to Maintain Weight Bearing Status Yes During Gait Assistive Devices Assistive Device Gait Belt,Front Wheeled Walker Orthotic/Prosthetic Devices or Brace: No Gait Deviations General Gait Pattern Antalgic,Decreased Stride Length,Decreased Feet Clearance Factors Limiting Gait Function Factors Limiting Gait Function Decreased Activity Tolerance, Decreased Strength,Pain,Poor Balance Comments Gait Comments See mobility comments PT-Balance Assessment Sitting Balance and Reactions Static Sitting Balance Ability Good Dynamic Sitting Balance Ability Good Standing Balance and Reactions Static Standing Balance Ability Good Dynamic Standing Balance Ability Good Device Used FWW M5 PT-IP Objective Assessments Start: 06/04/23 18:16 Freq: NEEDED Status: Active Protocol: Document 06/04/23 18:16 [facility] (Rec: 06/04/23 18:27 [facility] [id number]) Orientation Orientation/Cognition Level of Alertness Alert Language Function Ability No Deficits Noted Safety Awareness Understands Safety Issues Memory Description No Deficits Noted Strength Lower Extremity Strength Assessment Within Functional Limits M6 PT-IP Treatment Start: 06/04/23 18:16 Freq: NEEDED Status: Active Protocol: Document 06/07/23 15:49 TS (Rec: 06/07/23 15:54 TS [id number]) Physical Therapy Treatment Education Education Provided Precautions,Post-Op Packet, Safety M7 PT-IP Assessment and Plan Start: 06/04/23 18:16 Freq: NEEDED Status: Active Protocol: Document 06/07/23 15:49 TS (Rec: 06/07/23 15:54 TS [id number]) PT Summary Assessment and Plan Potential Rehabilitation Potential Fair Summary Impairments Pain,ROM,Strength,Balance, Coordination,Sensation,Tone, Cognition,Bed Mobility, Transfers,Gait,Activity Tolerance Progress Towards Goals Progressing Toward Goals Assessment Summary Eric is doing well with his mobility. He is SBA for sit to stands with FWW and continues to ambulate long distances of ~400'SBA with FWW. PT is recommending pt return home with assist. Goals Bed Mobility Goal Independent Transfer Goal Independent Gait Goal Independent Gait Distance >300ft w/least restrictive AD Days to Meet Goals 10 Frequency of Treatment Frequency Of Treatment Once a Day Treatment Plan Physical Therapy Treatment Plan Bed Mobility Training,Transfer Training,Gait Training, Therapeutic Exercise,Balance Retraining,Neuromuscular Re-ed Other Recommendations and Next Treatment bed mobility, ambulation Focus Precautions Abdominal Surgery Precautions Log Roll,Lifting Restrictions, Gait Belt above Incisional Area Recommendations To Nursing Amount of Assist Needed Independent Discharge Recommendations PT Discharge Recommendations Home with Assistance Transportation Needs at Discharge Private Vehicle
[2023-06-07 15:59] VITALS: O2SAT 93
--- NOTE | 2023-06-07 18:34 | PM.DS.1 ---
History of Present Illness History of Present Illness Date Patient Seen: 06/07/23 Time Patient Seen: 18:34 Chief complaint: bowel obstruction seen ED 24hr ago Narrative: Partial SBO with gastroenteritis. Congestive heart failure. S/P Xlap with FARZANA Discharge Providers Provider Date of admission: 06/01/23 20:52 Discharge Date: 06/07/23 Primary care physician: Satish Espitia MD Consults: 06/04/23 13:29 Consult to Physical Therapy Evaluate & Treat Comment: Physician Instructions: Evaluate and Treat Discharge provider: Taylor Carl MD Summary Hospital Course Discharge Diagnosis: Partial SBO due to adhesive disease. Possible inflamatory bowel disease given the appearance of creeping fat on small bowel. Hospital Course: IV hydration and conservative treatment w/o resolution. Then to OR for diagnostic laparoscopy converting to open for FARZANA and evaluation of dusky bowel to rule out ischemic bowel. No vascular compromise persisted once FARZANA complete. Status at Discharge Cognitive/behavioral status at discharge: at baseline, oriented Functional status at discharge: independent ambulation Overall status at discharge: patient is progressing back to baseline Time Spent with Patient Time spent: Less than 30 minutes Exam Vital Signs (past 8 hours): - 06/07/23 12:00 06/07/23 15:59 Pulse Oximetry 93 93 Oxygen Delivery Method Nasal Cannula Room Air Oxygen Flow Rate 1 Fraction of Inspired Oxygen 44 SaO2/FiO2 Ratio 213 Oxygen Delivery Method Room Air Oxygen Flow Rate 1 Narrative Exam Narrative: Abdomen slight distended with appropriate tenderness, small amount of drainage at wound, no infection. Skin marsha still in place Objective Labs 06/05/23 04:07 06/07/23 04:00 Labs: Laboratory Results - last 24 hr 06/07/23 04:00 Sodium 142 Potassium 3.4 Chloride 102 Carbon Dioxide 37 H BUN 25 H Creatinine 1.03 Estimated GFR > 60 BUN/Creatinine Ratio 24.3 H Glucose 112 H Calcium 9.1 Magnesium 2.2 PFSH Medical History Rhinitis, nonallergic, chronic Left knee pain Obesity (BMI 30-39.9) Hypertension Obstructive sleep apnea of adult Snoring Dehydration Sinusitis Cephalgia Febrile illness Corneal abrasion, left Surgical History Meniscus degeneration Social History marital status: details: tru Ramirez, lives in [place] household members: spouse lives independently: Yes caregiver/support person: No housing: house education level: 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 Can not rule out inflammatory bowel disease. Plan of Treatment: Home on general diet No heavy lifting for 4 weeks Follow up with [facility] 1 week for staple removal Discharge Plan Discharge Plan Patient Disposition: Home Discharge orders & Medications Prescriptions: New oxycodone 5 mg Tablet 5 mg PO Q4HR PRN (Reason: Pain, Moderate (4-6)) Qty: 30 0RF Continued diphenhydramine HCl [Benadryl Allergy] 25 MG tablet 25 mg PO QHS Qty: 0 omeprazole 20 MG capsule,delayed release(DR/EC) 20 mg PO QDAY Qty: 0 alfuzosin 10 MG tablet extended release 24 hr 10 mg PO QDAY Qty: 0 atorvastatin [Lipitor] 20 mg tablet 20 mg PO DAILY Qty: 0 gabapentin 300 mg Capsule 300 mg PO BEDTIME Pepcid Complete 10-800-165 mg Tablet,Chewable 1 tab PO BEDTIME losartan 100 mg tablet 100 mg PO DAILY clonidine HCl 0.2 mg tablet 0.2 mg PO BID hydrochlorothiazide 25 mg tablet 25 mg PO DAILY (DME) Resmed Airsense 10 CPAP Qty: 1 Dose Instruction: As directed Patient Comments: Pressure: 10-16 cmH2O DME: [facility] Rx Instructions: As directed amlodipine 5 mg tablet 5 mg PO DAILY Follow up/Referrals: Efe Drake MD [Physician] - (f/u 1 week for staple removal) Satish Espitia MD [Primary Care Provider] - Activity Restrictions/Additional Instructions: No lifting >15 lbs for 4 weeks. Wear abdominal binder for 2 weeks ans as needed for comfort Diet/Activity/Treatments Diet: Diet as Tolerated Skin/Wound/Dressing Care Report to your healthcare provider any signs of infection, such as:: chills, fever, increased pain, unusual drainage and unusual redness Dressing: dry dressing daily Other wound treatment: may shower with wound open Visit Report/Discharge Packet Instructions: DI for Laparoscopy, DI for Prescription Opioid Use, [facility]: Wound Care Stand Alone Forms: Congestive Heart Failure, Patient Portal/API, Surgery Discharge Discharge Data Primary Care Provider: Satish Espitia
== END 2023-06-07 19:05 | disposition home or self-care (01) | DRG 335 ==
LOC: ED 20:27 → AC 20:53 → ICU 06-02 16:52
PROVIDERS: Admitting Provider Surgery; Emergency Provider Emergency Medicine; PCP Family Medicine; Referring Provider Emergency Medicine; Visit Provider Surgery
PROC: 0DNB0ZZ Release Ileum, Open Approach (ICD-10-PCS; CPT 49320; principal; 2023-06-02 12:15)
DX: K56.50 Intestinal adhesions [bands], unspecified as to partial versus complete obstruction (principal); K55.019 Acute (reversible) ischemia of small intestine, extent unspecified; K91.89 Other postprocedural complications and disorders of digestive system; K56.7 Ileus, unspecified; R33.8 Other retention of urine; K52.9 Noninfective gastroenteritis and colitis, unspecified; I10 Essential (primary) hypertension; G47.33 Obstructive sleep apnea (adult) (pediatric); K56.609 Unspecified intestinal obstruction, unspecified as to partial versus complete obstruction; E66.9 Obesity, unspecified; Z88.8 Allergy status to other drugs, medicaments and biological substances
CPT/HCPCS: 36415; 44005; 71045; 74018; 74022; 74177; 80048; 80053; 81001; 83690; 83735; 85025; 85610; 93005; 93010; 94762; 96374; 96375; 97116; 97162; 97530; 99233; 99284; 99285; J1100; J1170; J1650; J1885; J1940; J2250; J2270; J2405; J2543; J2704; J3010; J3490; Q9967

== ENCOUNTER 2023-06-08 10:07 | Emergency (ER) | payer MEDICARE, OTHER, SELFPAY ==
[2023-06-01 23:15] VITALS: BMI 35.3
[2023-06-08] VITALS (15 sets, daily range): BP systolic 145–175; BP diastolic 67–85; PULSE 64–78; RESP 20; TEMP 36.9; O2SAT 91–99; BMI 37.0
[2023-06-08 10:35] LABS: INR 1.3 (0.9-1.3); Prothrombin Time 14.9 SECONDS (9.4-12.5)
[2023-06-08 10:36] LABS: Alanine Aminotransferase 58 IU/L (<50); Albumin 3.2 g/dL (3.5-5.0); Albumin Globulin Ratio 0.9 (1.0-2.8); Alkaline Phosphatase 89 U/L (38-126); Aspartate Aminotransferase 59 IU/L (17-59); BUN Creatinine Ratio 22.1 (6-22); Bilirubin Total 1.8 mg/dL (0.2-1.3); Blood Urea Nitrogen 21 mg/dL (9-20); Calcium 9.1 mg/dL (8.4-10.2); Carbon Dioxide 29 mmol/L (22-32); Chloride 101 mmol/L (98-107); Estimated Glomerular Filt Rate > 60 mL/min (>60); Globulin 3.4 g/dL (1.7-4.1); Glucose 108 mg/dL (80-110); HEMOLYSIS < 15 (0-50); Lipase 108 U/L (23-300); Potassium 3.1 mmol/L (3.4-5.1); Sodium 139 mmol/L (137-145); Total Protein 6.6 g/dL (6.3-8.2)
[2023-06-08 10:41] LABS: Add Manual Diff / Slide Review NO; Basophils Absolute Auto 0 /uL (0-100); Basophils Percent Auto 0.6 % (0-2); Eosinophils Absolute Auto 300 /uL (0-450); Eosinophils Percent Auto 4.1 % (2-4); Hematocrit 39.1 % (41-53); Hemoglobin 13.3 g/dL (13.5-17.5); Lymphocytes Absolute Auto 700 /uL (1100-4500); Lymphocytes Percent Auto 8.3 % (25-40); Mean Corpuscular HGB Conc 34.1 % (30-36); Mean Corpuscular Hemoglobin 29.7 PG (26-34); Mean Corpuscular Volume 87.3 fL (80-100); Monocytes Absolute Auto 800 /uL (0-900); Monocytes Percent Auto 9.5 % (3-14); Neutrophils Absolute Auto 6300 /uL (1500-7000); Neutrophils Percent Auto 77.5 % (50-75); Platelet Count 199 X10^3/uL (150-400); Red Blood Cell Count 4.47 X10^6/uL (4.5-5.9); Red Cell Distribution Width 14.4 % (11.6-14.8); White Blood Cell Count 8.1 X10^3/uL (4.5-11.0)
--- NOTE | 2023-06-08 11:02 | ED.ABDPAIN ---
HPI - Abdominal Pain General Chief Complaint: Abdominal Pain Stated Complaint: RLQ pain Time Seen by Provider: 06/08/23 11:00 Source: patient, family, RN notes reviewed and old records reviewed Mode of arrival: Family Vehicle Limitations: no limitations History of Present Illness HPI narrative: 59-year-old male with history of hypertension, dyslipidemia, recent bowel obstruction with surgery patient noted had adhesions or a band around his terminal ileum which was released. Suspected Crohn's disease based on location of disease. Patient was hospitalized for approximately 10 days he was discharged home yesterday. He states yesterday while ambulating with PT he had a small cough and then developed significant pain in the right lower abdomen just right of hit the midline incision from patient's surgery. Patient states since then pain has been persistent minimum 5/10 but with particular movement rapidly increased 10/10. Patient states will take about 30 minutes to improve. He states it feels like something sort of slid or released when it happened. He did notice an increase of serosanguineous drainage from the bottom of his wound. Patient states no fevers. No nausea or vomiting. States no back or flank pain. He states he continues to be distended but isn't any worse than from when he was discharged. He is had to liquidy bowel movements total. He has been passing flatus. He states he does have dysuria with urination but no symptoms of retention. He states that has been persistent since he had his surgery. Patient does note he did not take his amlodipine or clonidine this morning which he normally takes in the morning. He took all of his evening medications. States he has reaction to somatostatin, developed myositis and elevated CK. No tobacco, alcohol or illicit. His primary care provider is Dr. Espitia. Dr. Drake and Dr. Carl performed his surgery here at [facility]. Related Data Home Medications Medication Instructions Recorded Confirmed alfuzosin 10 mg tablet,extended 10 mg PO QDAY ##0 07/02/16 06/01/23 release 24 hr diphenhydramine HCl 25 mg tablet 25 mg PO QHS ##0 07/02/16 06/01/23 (Benadryl Allergy) omeprazole 20 mg capsule,delayed 20 mg PO QDAY ##0 07/02/16 06/01/23 release Resmed Airsense 10 CPAP #1 ea 10/01/18 06/01/23 clonidine HCl 0.2 mg tablet 0.2 mg PO BID 04/18/21 06/01/23 hydrochlorothiazide 25 mg tablet 25 mg PO DAILY 04/18/21 06/01/23 amlodipine 5 mg tablet 5 mg PO DAILY 08/01/21 06/01/23 atorvastatin 20 mg tablet (Lipitor) 20 mg PO DAILY #0 tabs 08/01/21 06/01/23 famotidine-Ca carb-mag hydrox 10 1 tab PO BEDTIME 06/01/23 06/01/23 mg-800 mg-165 mg chewable tablet (Pepcid Complete) gabapentin 300 mg capsule 300 mg PO BEDTIME 06/01/23 06/01/23 losartan 100 mg tablet 100 mg PO DAILY 06/01/23 06/01/23 Previous Rx's Medication Instructions Recorded oxycodone 5 mg tablet 5 mg PO Q4HR PRN Pain, Moderate 06/07/23 (4-6) #30 tabs celecoxib 100 mg capsule (Celebrex) 100 mg PO BID #30 caps 06/08/23 docusate sodium 100 mg capsule 100 mg PO DAILY #20 caps 06/08/23 (Colace) Allergies Allergy/AdvReac Type Severity Reaction Status Date / Time somatostatin AdvReac Unknown Verified 01/30/22 08:57 Review of Systems Review of Systems ROS Unobtainable: All systems reviewed & are unremarkable except as noted in HPI and below Patient History Medical History (Updated 06/08/23 @ 13:04 by Bambi Roldan DO) Rhinitis, nonallergic, chronic Left knee pain Obesity (BMI 30-39.9) Hypertension Obstructive sleep apnea of adult Snoring Dehydration Sinusitis Cephalgia Febrile illness Corneal abrasion, left Surgical History (Updated 06/08/23 @ 13:04 by Bambi Roldan DO) Meniscus degeneration Social History marital status: details: tru Ramirez, lives in [place] household members: spouse lives independently: Yes caregiver/support person: No housing: house education level: other 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 HEENT: Head normocephalic, atraumatic, EOMI, pupils reactive, face symmetric, moist mucous membranes NECK: Supple, full range of motion CARDIOVASCULAR: Regular rate and rhythm without murmurs, rubs or gallops. RESPIRATORY: Breath sounds equal bilaterally, no wheezes rales or rhonchi. ABDOMEN: Soft, distended. Patient has some increased tenderness particularly in the right lower. Patient has surgical incision which does appear intact. Mohler are present patient has small amount of erythema along the edges but not extending outwards. Also has a incisions consistent with a attempted laparoscopic surgery that appear clean dry and healing with marsha in place. Decreased but present bowel sounds all 4 quadrants. No guarding or rebound, rigidity, no mass. : No CVA tenderness EXTREMITIES: Normal range of motion, no clubbing or edema. Neurovascularly intact NEUROLOGICAL: Cranial nerves II through XII grossly intact. Moving all extremities SKIN: Warm, dry, no petechiae, no rashes or lesions. Initial Vital Signs Initial Vital Signs: Vital Signs Pulse Rate 73 06/08/23 10:14 Blood Pressure 174/78 H 06/08/23 10:14 Pulse Oximetry 94 06/08/23 10:14 Course Orders Ordered: ED Orders 06/08/23 10:15 Complete Blood Count AUTO DIFF Stat Comprehensive Metabolic Panel Stat Lipase Stat Prothrombin Time INR Stat 06/08/23 10:21 EKG-12 Lead Stat 06/08/23 11:22 CT abdomen pelvis w con Stat 06/08/23 12:37 Urine Microscopic Stat 06/08/23 12:44 Ictotest Urine Stat Ondansetron HCl (Ondansetron 4 Mg Odt) 4 mg PO NOW PRN PRN Reason: Nausea And Vomiting Ondansetron HCl (Ondansetron 4 Mg/2 Ml Inj) 4 mg IV NOW PRN PRN Reason: Nausea And Vomiting Discontinued Medications Amlodipine Besylate (Amlodipine 5 Mg Tablet) 5 mg PO NOW ONE Stop: 06/08/23 11:23 Last Admin: 06/08/23 11:54 Dose: 5 mg Clonidine HCl (Clonidine 0.1 Mg Tablet) 0.2 mg PO NOW ONE Stop: 06/08/23 11:23 Last Admin: 06/08/23 11:54 Dose: 0.2 mg Sodium Chloride (Normal Saline 0.9%) 1,000 mls @ 1,000 mls/hr IV BOLUS ONE Stop: 06/08/23 12:21 Last Admin: 06/08/23 11:29 Dose: 1,000 mls/hr Documented By: RB Potassium Chloride (Potassium Chloride 20 Meq Tab) 40 meq PO NOW ONE Stop: 06/08/23 11:23 Last Admin: 06/08/23 11:54 Dose: 40 meq Vital Signs Vital signs: Vital Signs - 8 hr 06/08/23 10:14 06/08/23 10:14 06/08/23 10:17 Temperature 98.4 F Pulse Rate 73 74 Respiratory Rate 20 Blood Pressure 174/78 H 174/78 H Pulse Oximetry 94 99 Oxygen Delivery Method Room Air 06/08/23 10:30 06/08/23 11:00 06/08/23 11:17 Temperature Pulse Rate 67 70 72 Respiratory Rate Blood Pressure Pulse Oximetry 92 93 95 Oxygen Delivery Method 06/08/23 11:17 06/08/23 11:30 06/08/23 11:31 Temperature Pulse Rate 78 69 Respiratory Rate Blood Pressure 175/85 H Pulse Oximetry 92 93 Oxygen Delivery Method 06/08/23 11:31 06/08/23 11:54 06/08/23 11:55 Temperature Pulse Rate 75 75 Respiratory Rate Blood Pressure 166/70 H 166/70 H Pulse Oximetry 92 Oxygen Delivery Method 06/08/23 11:55 06/08/23 12:00 06/08/23 12:01 Temperature Pulse Rate 75 75 Respiratory Rate Blood Pressure 155/74 H Pulse Oximetry 92 93 Oxygen Delivery Method 06/08/23 12:01 06/08/23 12:15 06/08/23 12:15 Temperature Pulse Rate 75 Respiratory Rate Blood Pressure 174/79 H 163/70 H Pulse Oximetry 92 Oxygen Delivery Method 06/08/23 12:30 06/08/23 12:30 Temperature Pulse Rate 70 Respiratory Rate Blood Pressure 145/67 H Pulse Oximetry 91 Oxygen Delivery Method MDM - Abdominal Pain Lab Data 06/08/23 10:15 06/08/23 10:15 Labs: Lab Results 06/08/23 Range/Units 10:15 WBC 8.1 (4.5-11.0) X10^3/uL RBC 4.47 L (4.5-5.9) X10^6/uL Hgb 13.3 L (13.5-17.5) g/dL Hct 39.1 L (41-53) % MCV 87.3 (80-100) fL MCH 29.7 (26-34) PG MCHC 34.1 (30-36) % RDW 14.4 (11.6-14.8) % Plt Count 199 (150-400) X10^3/uL Neut % (Auto) 77.5 H (50-75) % Lymph % (Auto) 8.3 L (25-40) % [place] % (Auto) 9.5 (3-14) % Eos % (Auto) 4.1 H (2-4) % Baso % (Auto) 0.6 (0-2) % Neut # (Auto) 6300 (2230-3288) /uL Lymph # (Auto) 700 L (2319-0547) /uL [place] # (Auto) 800 (0-900) /uL Eos # (Auto) 300 (0-450) /uL Baso # (Auto) 0 (0-100) /uL PT 14.9 H (9.4-12.5) SECONDS INR 1.3 (0.9-1.3) Sodium 139 (137-145) mmol/L Potassium 3.1 L (3.4-5.1) mmol/L Chloride 101 (98-107) mmol/L Carbon Dioxide 29 (22-32) mmol/L BUN 21 H (9-20) mg/dL Creatinine 0.95 (0.66-1.25) mg/dL Estimated GFR > 60 (>60) mL/min BUN/Creatinine Ratio 22.1 H (6-22) Glucose 108 (80-110) mg/dL Calcium 9.1 (8.4-10.2) mg/dL Total Bilirubin 1.8 H (0.2-1.3) mg/dL AST 59 (17-59) IU/L ALT 58 H (<50) IU/L Alkaline Phosphatase 89 (38-126) U/L Total Protein 6.6 (6.3-8.2) g/dL Albumin 3.2 L (3.5-5.0) g/dL Globulin 3.4 (1.7-4.1) g/dL Albumin/Globulin Ratio 0.9 L (1.0-2.8) Lipase 108 D (23-300) U/L Point of care testing: Urine Dip Bedside Urine Glucose Negative Bedside Urine Bilirubin + 1 Bedside Urine Ketone - Negative Urine Specific [place] 1.010 Bedside Urine Occult Blood +/- Bedside Urine pH 6.0 Bedside Urine Protein - Negative Bedside Urine Urobilinogen - Negative Bedside Urine Nitrite - Negative Bedside Urine Leukocytes - Negative Esterase Imaging Data CT scan - abdomen/pelvis: Radiologist's Impression: [address] [address] [address] Scan Report Signed Patient: Eric Head MR#: [id number] : 1955 Acct:[id number] Age/Sex: 67 / M Date of Service: 06/08/23 Loc: ED Accession Number: [id number] Procedure: CT abdomen pelvis w con Ordering Provider: Bambi Roldan D.O. PROCEDURE: CT ABDOMEN PELVIS W CON INDICATIONS: abd pain, RL just right midline from incision, ? hernia/sero TECHNIQUE: After the administration of oral and IV contrast, axial sections were acquired from the lung bases to the pubic symphysis. Coronal and sagittal reformats were performed. For radiation dose reduction, the following was used: automated exposure control, adjustment of mA and/or kV according to patient size. COMPARISON: [facility], CT, CT ABDOMEN PELVIS W CON, 05/31/2023, 3:34. FINDINGS: Image quality: Excellent. Lung bases: Small pleural effusions. Heart: Cardiomegaly. ABDOMEN: Liver: Hepatic cysts. Gallbladder: Gallbladder sludge versus small stones. No wall thickening or pericholecystic edema to suggest acute cholecystitis. Biliary ducts: No biliary dilation. Pancreas: No ductal dilation. Spleen: Size is within normal limits. Adrenal Glands: No adrenal nodules. Kidneys and Ureters: No hydronephrosis. No solid mass. No complex renal cystic lesion which requires follow up. Stomach and Bowel: Distended loops small bowel, without a discernible transition point. Fecal debris within the distal small bowel. Peritoneum: Mesenteric edema. Small volume ascites. Ventral Wall: No hernia. Interval laparotomy. No dehiscence. Abdominal Nodes: No retroperitoneal or mesenteric adenopathy by size criteria. Vessels: Aorta and inferior vena cava are normal in size. PELVIS: Pelvic Organs: Unremarkable. Bladder: Unremarkable. Pelvic Nodes: No enlarged lymph nodes. Miscellaneous: Moderate left inguinal hernia containing fat. Bones: No aggressive osseous abnormality. IMPRESSION: Interval laparotomy, with no dehiscence. Distended loops of small bowel, without discernible transition point. Findings favor adynamic ileus over a partial, low-grade small bowel obstruction. Small pleural effusions with bibasilar atelectasis. Dictated by: Bony Box M.D. on 06/08/2023 at 12:26 Approved by: Bony Box M.D. on 06/08/2023 at 12:29 [facility] Narrative Medical decision making narrative: 67-year-old male with recent bowel obstruction who had what sounds like lysis of adhesions or bands at the terminal ileum. Has suspected Crohn's based on his findings operatively. Patient states felt like a tearing or slipping feeling in his right lower quadrant just adjacent to the incision yesterday prior to discharge while ambulating with PT has been persistent seems to be more positional. Does not feel like it is related to peristalsis. He is had to liquidy stools, no vomiting but did does continue to be distended. He is hypertensive but notes he has not taken his blood pressure medications this morning. Labs was hemoglobin of 13.3, platelets 199 white count 8.1 with a slightly leftward shift. INR is 1.3 potassium 3.1 sodium of 139 CO2 is 29 BUN 21 creatinine 0.95 glucose is 108, patient's bilirubin is elevated at 1.8 with a ALT of 58, AST is 59 lipase is 108. Urine shows CT abdomen pelvis ordered secondary to increased pain status postoperative repair. Patient did also notes a little bit of increased serosanguineous drainage from the site after this episode. I am unable to express anymore with palpation. He has some slight erythema along the edges of his incision but no large cellulitis appreciated. Spoke with Dr. Carl, general surgery; at this time can keep patient for observation if he wishes to do so but may do better at home. Would recommend more of a regimen for pain control including Tylenol and something similar to Celebrex or meloxicam can continue his oxycodone. Potentially a stool softener. Patient is to return if having worsening symptoms. Discussed with patient did have some Tylenol with oxycodone last night but not regularly. We will continue with this at other opportunities for pain medications. He has been off of his pregabalin for at least 2 weeks he states that is more for paresthesias so may not add this as it would also slow his gut. Discussed stool softener he would take a prescription. Patient asked if he can have a 2nd binder as he feels that maybe helpful as well as a lot of his pain occurs when he tries to transition from lying to sitting or sitting to standing. Second binder sent home with patient. Urine micro does not show obvious changes. Will send for culture as patient has persistent dysuria. Discharge Plan Departure Patient Disposition: Home Clinical Impression: H/O abdominal surgery, Dysuria Abdominal pain Qualifiers: Abdominal location: right lower quadrant Qualified Code(s): R10.31 - Right lower quadrant pain Activity Restrictions/Additional Instructions: Follow up with Dr. Drake next week if symptoms are not continuing to improve. Take Tylenol a 1000 mg every 6 hours. I would recommend adding Celebrex 1 tablet every 12 hours. You may continue with your oxycodone as prescribed by Dr. Drake. Prescription is also included for Colace, 1 tablet every day or every 12 hours to assist stooling. Prescription sent to [facility] in [place]. Make sure you are drinking plenty of fluids, slowly continue to advance your diet as tolerated. Continue with ambulation as tolerated. Please return for fevers, worsening abdominal back or flank pain, vomiting, difficulty or inability to urinate, if you are not having bowel movements and not passing gas or flatus, increasing distention of her abdomen, signs of infection at your incision sites such as redness, increasing drainage or other new or concerning changes. Prescriptions: New celecoxib [Celebrex] 100 mg capsule 100 mg PO BID Qty: 30 0RF docusate sodium [Colace] 100 mg capsule 100 mg PO DAILY Qty: 20 0RF No Action diphenhydramine HCl [Benadryl Allergy] 25 MG tablet 25 mg PO QHS Qty: 0 omeprazole 20 MG capsule,delayed release(DR/EC) 20 mg PO QDAY Qty: 0 alfuzosin 10 MG tablet extended release 24 hr 10 mg PO QDAY Qty: 0 atorvastatin [Lipitor] 20 mg tablet 20 mg PO DAILY Qty: 0 gabapentin 300 mg Capsule 300 mg PO BEDTIME Pepcid Complete 10-800-165 mg Tablet,Chewable 1 tab PO BEDTIME losartan 100 mg tablet 100 mg PO DAILY oxycodone 5 mg Tablet 5 mg PO Q4HR PRN (Reason: Pain, Moderate (4-6)) Qty: 30 0RF clonidine HCl 0.2 mg tablet 0.2 mg PO BID hydrochlorothiazide 25 mg tablet 25 mg PO DAILY (DME) Resmed Airsense 10 CPAP Qty: 1 Dose Instruction: As directed Patient Comments: Pressure: 10-16 cmH2O DME: [facility] Rx Instructions: As directed amlodipine 5 mg tablet 5 mg PO DAILY Referrals: Satish Espitia MD [Primary Care Provider] - Stand Alone Forms: Patient Portal/API
--- NOTE | 2023-06-08 11:22 | DI.CT.S_ITS ---
PROCEDURE: CT ABDOMEN PELVIS W CON INDICATIONS: abd pain, RL just right midline from incision, ? hernia/sero TECHNIQUE: After the administration of oral and IV contrast, axial sections were acquired from the lung bases to the pubic symphysis. Coronal and sagittal reformats were performed. For radiation dose reduction, the following was used: automated exposure control, adjustment of mA and/or kV according to patient size. COMPARISON: [facility], CT, CT ABDOMEN PELVIS W CON, 05/31/2023, 3:34. FINDINGS: Image quality: Excellent. Lung bases: Small pleural effusions. Heart: Cardiomegaly. ABDOMEN: Liver: Hepatic cysts. Gallbladder: Gallbladder sludge versus small stones. No wall thickening or pericholecystic edema to suggest acute cholecystitis. Biliary ducts: No biliary dilation. Pancreas: No ductal dilation. Spleen: Size is within normal limits. Adrenal Glands: No adrenal nodules. Kidneys and Ureters: No hydronephrosis. No solid mass. No complex renal cystic lesion which requires follow up. Stomach and Bowel: Distended loops small bowel, without a discernible transition point. Fecal debris within the distal small bowel. Peritoneum: Mesenteric edema. Small volume ascites. Ventral Wall: No hernia. Interval laparotomy. No dehiscence. Abdominal Nodes: No retroperitoneal or mesenteric adenopathy by size criteria. Vessels: Aorta and inferior vena cava are normal in size. PELVIS: Pelvic Organs: Unremarkable. Bladder: Unremarkable. Pelvic Nodes: No enlarged lymph nodes. Miscellaneous: Moderate left inguinal hernia containing fat. Bones: No aggressive osseous abnormality. IMPRESSION: Interval laparotomy, with no dehiscence. Distended loops of small bowel, without discernible transition point. Findings favor adynamic ileus over a partial, low-grade small bowel obstruction. Small pleural effusions with bibasilar atelectasis. Dictated by: Bony Box M.D. on 06/08/2023 at 12:26 Approved by: Bony Box M.D. on 06/08/2023 at 12:29
[2023-06-08] MEDS: SODIUM CHLORIDE 0.9% 1,000 ML 1000 ML IV (11:29)
[2023-06-08] MEDS: POTASSIUM CHLORIDE 20 MEQ TAB 40 MEQ PO (11:54)
[2023-06-08] MEDS: cloNIDine 0.1 MG TABLET 0.2 MG PO (11:54)
[2023-06-08] MEDS: AMLODIPINE 5 MG TABLET PO (11:54)
[2023-06-08 13:01] LABS: Bacteria Urine None Seen; Culture Indicated Urine Cult Not Indicated; RBC Urine None Seen (0-5/HPF); Squamous Epithelial Cell Urine None Seen (0-5/HPF); WBC Urine 0-1/HPF (0-5/HPF)
== END 2023-06-08 13:28 | disposition home or self-care (01) ==
PROVIDERS: Emergency Provider Emergency Medicine; PCP Family Medicine
DX: R10.31 Right lower quadrant pain (principal); R30.0 Dysuria; Z98.890 Other specified postprocedural states
CPT/HCPCS: 36415; 74177; 80053; 81003; 81015; 83690; 85025; 85610; 87077; 87086; 87186; 96360; 99284

== ENCOUNTER 2023-06-09 11:38 | Inpatient (IN) | payer MEDICARE, OTHER, SELFPAY ==
[2023-06-01 23:15] VITALS: BMI 35.3
[2023-06-09] VITALS (16 sets, daily range): BP systolic 132–166; BP diastolic 63–75; PULSE 64–84; RESP 16–28; TEMP 36.7–36.9; O2SAT 86–98; BMI 34.5; BMI 35.6
[2023-06-09 12:13] LABS: Add Manual Diff / Slide Review NO; Basophils Absolute Auto 100 /uL (0-100); Basophils Percent Auto 0.7 % (0-2); Eosinophils Absolute Auto 300 /uL (0-450); Eosinophils Percent Auto 3.9 % (2-4); Hematocrit 39.5 % (41-53); Hemoglobin 13.2 g/dL (13.5-17.5); Lymphocytes Absolute Auto 700 /uL (1100-4500); Lymphocytes Percent Auto 8.9 % (25-40); Mean Corpuscular HGB Conc 33.4 % (30-36); Mean Corpuscular Hemoglobin 29.4 PG (26-34); Mean Corpuscular Volume 87.9 fL (80-100); Monocytes Absolute Auto 600 /uL (0-900); Monocytes Percent Auto 7.7 % (3-14); Neutrophils Absolute Auto 6500 /uL (1500-7000); Neutrophils Percent Auto 78.8 % (50-75); Platelet Count 226 X10^3/uL (150-400); Red Blood Cell Count 4.49 X10^6/uL (4.5-5.9); Red Cell Distribution Width 14.8 % (11.6-14.8); White Blood Cell Count 8.2 X10^3/uL (4.5-11.0)
[2023-06-09 12:15] LABS: INR 1.3 (0.9-1.3); Prothrombin Time 15.1 SECONDS (9.4-12.5)
[2023-06-09] MEDS: ONDANSETRON 4 MG/2 ML INJ IV (12:20)
[2023-06-09 12:21] LABS: Alanine Aminotransferase 65 IU/L (<50); Albumin Globulin Ratio 0.9 (1.0-2.8); Alkaline Phosphatase 87 U/L (38-126); Aspartate Aminotransferase 62 IU/L (17-59); BUN Creatinine Ratio 21.3 (6-22); Bilirubin Total 1.3 mg/dL (0.2-1.3); Blood Urea Nitrogen 17 mg/dL (9-20); Calcium 8.9 mg/dL (8.4-10.2); Carbon Dioxide 29 mmol/L (22-32); Chloride 103 mmol/L (98-107); Estimated Glomerular Filt Rate > 60 mL/min (>60); Globulin 3.5 g/dL (1.7-4.1); Glucose 106 mg/dL (80-110); HEMOLYSIS 30 (0-50); Lipase 125 U/L (23-300); Potassium 3.4 mmol/L (3.4-5.1); Sodium 139 mmol/L (137-145); Total Protein 6.5 g/dL (6.3-8.2)
--- NOTE | 2023-06-09 13:55 | ED_ITS ---
HPI - Abdominal Pain General Chief Complaint: Abdominal Pain Stated Complaint: concerned about a bowel obstruction Time Seen by Provider: 06/09/23 13:54 Source: patient and family Mode of arrival: Ambulatory History of Present Illness HPI narrative: 59-year-old male with history of hypertension, dyslipidemia, recent bowel obstruction postoperative by 12 days after having adhesions or a band around his terminal ileum which was released. He notes that his physician suspect Crohn's disease based on the location. With hospitalist proximally 10 days and seen yesterday for increased pain particularly with transitioning and movement. Patient returns today states that pain he was having in his right lower abdomen as in the can be improved after he had a large amount of serosanguineous fluid drain from his incision site seems likely from the umbilical area but he is not exactly sure the exact spot. He states he is had drainage continue from last night into today. No fevers but he has had some nausea and felt like he is going to vomit which is new. Did have some bowel movements overnight which were liquidy. No black or bloody stools. He continues to have dysuria but no other new urinary symptoms. No fevers that he is aware of. He has had some pleuritic lower thoracic back pain which is new from yesterday. He does feel a little short of breath. He notes his O2 sat was 88 89% home this morning. He does use a CPAP at night but has not been using it secondary to his recent surgery he states the pressure is too much. He does feel like his abdomen is much more distended. He has been trying to eat. Also notes some increased redness at the site of his incision. Patient last dose of oxycodone was last night, has not taken anything else for pain. He states his pain today is actually improved in his abdomen. He has not taken any home medications for blood pressure. Has adverse reaction to some add a statin developed myositis and elevated CK. No tobacco, alcohol or illicit. His primary care is Dr. Espitia, Dr. Mary and Dr. Carl performed his surgery here at [facility]. Related Data Home Medications Medication Instructions Recorded Confirmed alfuzosin 10 mg tablet,extended 10 mg PO Q OTHER DAY ##0 07/02/16 06/09/23 release 24 hr diphenhydramine HCl 25 mg tablet 25 mg PO QHS ##0 07/02/16 06/09/23 (Benadryl Allergy) omeprazole 20 mg capsule,delayed 20 mg PO QDAY ##0 07/02/16 06/09/23 release Resmed Airsense 10 CPAP #1 ea 10/01/18 06/09/23 clonidine HCl 0.2 mg tablet 0.2 mg PO BID 04/18/21 06/09/23 hydrochlorothiazide 25 mg tablet 25 mg PO DAILY 04/18/21 06/09/23 amlodipine 5 mg tablet 5 mg PO DAILY 08/01/21 06/09/23 atorvastatin 20 mg tablet (Lipitor) 20 mg PO DAILY #0 tabs 08/01/21 06/09/23 famotidine-Ca carb-mag hydrox 10 1 tab PO BEDTIME 06/01/23 06/09/23 mg-800 mg-165 mg chewable tablet (Pepcid Complete) gabapentin 300 mg capsule 300 mg PO BEDTIME 06/01/23 06/09/23 losartan 100 mg tablet 100 mg PO DAILY 06/01/23 06/09/23 Previous Rx's Medication Instructions Recorded oxycodone 5 mg tablet 5 mg PO Q4HR PRN Pain, Moderate 06/07/23 (4-6) #30 tabs celecoxib 100 mg capsule (Celebrex) 100 mg PO BID #30 caps 06/08/23 docusate sodium 100 mg capsule 100 mg PO DAILY #20 caps 06/08/23 (Colace) Allergies Allergy/AdvReac Type Severity Reaction Status Date / Time somatostatin AdvReac Unknown Verified 01/30/22 08:57 Review of Systems Review of Systems ROS Unobtainable: All systems reviewed & are unremarkable except as noted in HPI and below Patient History Medical History (Updated 06/09/23 @ 15:29 by Bambi Roldan DO) Rhinitis, nonallergic, chronic Left knee pain Obesity (BMI 30-39.9) Hypertension Obstructive sleep apnea of adult Snoring Dehydration Sinusitis Cephalgia Febrile illness Corneal abrasion, left Surgical History Meniscus degeneration Social History marital status: details: tru Ramirez, lives in [place] household members: spouse lives independently: Yes caregiver/support person: No housing: house education level: other 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 HEENT: Head normocephalic, atraumatic, EOMI, pupils reactive, face symmetric, moist mucous membranes NECK: Supple, full range of motion CARDIOVASCULAR: Regular rate and rhythm without murmurs, rubs or gallops. RESPIRATORY: Breath sounds equal bilaterally, no wheezes rales or rhonchi. No tachypnea or accessory muscle use. Speaks in full sentences. ABDOMEN: Soft, minimal tenderness on exam. Patient's surgical incision does appear intact, there has obvious serosanguineous fluid which is drained I am able to express significant more mount but his bandage has been soaked through. Appears it maybe coming from the umbilicus. Manuel are present throughout there is erythema present along the edges but has extended a little bit farther outwards and there is no erythema at the top that extends out about 2 cm on each side. Incisions consistent with a attempted laparoscopic surgery if you are clean dry and healing well. Normoactive bowel sounds all 4 quadrants. No guarding or rebound, rigidity, no mass. Patient does not appear distended. : No CVA tenderness EXTREMITIES: Normal range of motion, no clubbing or edema. Neurovascularly intact NEUROLOGICAL: Cranial nerves II through XII grossly intact. Moving all extremities SKIN: Warm, dry, no petechiae, no rashes or lesions otherwise noted. Initial Vital Signs Initial Vital Signs: Vital Signs Temperature 98.4 F 06/09/23 12:04 Pulse Rate 71 06/09/23 12:04 Respiratory Rate 16 06/09/23 12:04 Blood Pressure 159/70 H 06/09/23 12:04 Pulse Oximetry 98 06/09/23 12:04 Oxygen Delivery Method Room Air 06/09/23 12:04 Course Orders Ordered: ED Orders 06/09/23 11:55 BNP [NT-proBNP (BNP-Adult 18+)] Stat Complete Blood Count AUTO DIFF Stat Comprehensive Metabolic Panel Stat Lipase Stat Prothrombin Time INR Stat Troponin & CK Cardiac Panel Stat 06/09/23 12:33 EKG-12 Lead Stat 06/09/23 14:15 CT abdomen pelvis w con Stat CT angio chest PE protocol Stat 06/09/23 15:50 Wound Culture and Gram Stain Stat Acetaminophen (Acetaminophen 325 Mg Tablet) 650 mg PO Q6H [facility] Last Admin: 06/09/23 16:29 Dose: 650 mg Documented By: EM Amlodipine Besylate (Amlodipine 5 Mg Tablet) 5 mg PO DAILY [facility] Atorvastatin Calcium (Atorvastatin 20 Mg Tablet) 20 mg PO DAILY [facility] Celecoxib (Celecoxib 200 Mg Capsule) 200 mg PO BID [facility] Clonidine HCl (Clonidine 0.1 Mg Tablet) 0.2 mg PO BID [facility] Enoxaparin Sodium (Enoxaparin 40 Mg/0.4 Ml Syringe) 40 mg SUBCUT DAILY [facility] Famotidine (Famotidine 20 Mg Tablet) 10 mg PO BEDTIME [facility] Gabapentin (Gabapentin 300 Mg Capsule) 300 mg PO TID [facility] Last Admin: 06/09/23 16:29 Dose: 300 mg Documented By: EM Hydrochlorothiazide (Hydrochlorothiazide 25 Mg Tablet) 25 mg PO DAILY [facility] Sodium Chloride (Normal Saline 0.9%) 1,000 mls @ 125 mls/hr IV CONT [facility] Last Admin: 06/09/23 14:40 Dose: 125 mls/hr Documented By: GC Piperacillin Sod/Tazobactam (Sod 3.375 gm/ Sodium Chloride) 100 mls @ 25 mls/hr IV Q8H [facility] Losartan Potassium (Losartan 50 Mg Tablet) 100 mg PO DAILY [facility] Naloxone HCl (Naloxone 0.4 Mg/Ml Vial) 0.2 mg IV Q2MIN PRN PRN Reason: Opiate Reversal Alfuzosin 10 Mg (Tablet Er 24 Hr) 10 mg PO DAILY [facility] Ondansetron HCl (Ondansetron 4 Mg Odt) 4 mg PO NOW PRN PRN Reason: Nausea And Vomiting Ondansetron HCl (Ondansetron 4 Mg/2 Ml Inj) 4 mg IV NOW PRN PRN Reason: Nausea And Vomiting Last Admin: 06/09/23 12:20 Dose: 4 mg Documented By: RB Ondansetron HCl (Ondansetron 4 Mg/2 Ml Inj) 4 mg IV Q6HR PRN PRN Reason: Nausea And Vomiting Oxycodone HCl (Oxycodone Ir 5 Mg Tablet) 10 mg PO Q3HR PRN PRN Reason: Pain, Severe (7-10) Simethicone (Simethicone 80 Mg Tablet) 80 mg PO QID [facility] Discontinued Medications Amlodipine Besylate (Amlodipine 5 Mg Tablet) 5 mg PO NOW ONE Stop: 06/09/23 14:17 Last Admin: 06/09/23 14:39 Dose: 5 mg Documented By: JORDAN Amoxicillin/Clavulanate Potassium (Amoxicillin/Clav 875/125 Mg) 1 tab PO BID GUIDO Clonidine HCl (Clonidine 0.1 Mg Tablet) 0.2 mg PO NOW ONE Stop: 06/09/23 14:17 Last Admin: 06/09/23 14:38 Dose: 0.2 mg Documented By: JORDAN Acetaminophen (Ofirmev) 1,000 mg in 100 mls @ 400 mls/hr IV NOW ONE Stop: 06/09/23 14:44 Last Infusion: 06/09/23 14:55 Dose: Infused Documented By: Admin: 06/09/23 14:40 Dose: 400 mls/hr Documented By: JORDAN Piperacillin Sod/Tazobactam (Sod 4.5 gm/ Sodium Chloride) 100 mls @ 200 mls/hr IV NOW ONE Stop: 06/09/23 15:26 Last Admin: 06/09/23 15:46 Dose: 200 mls/hr Documented By: JORDAN Vancomycin HCl/Dextrose (Vancomycin) 1,500 mg in 300 mls @ 200 mls/hr IV NOW ONE Stop: 06/09/23 16:54 Last Admin: 06/09/23 16:27 Dose: 200 mls/hr Documented By: MONICA Scopolamine (Scopolamine 1 Patch) 1 patch TOP NOW ONE Stop: 06/09/23 15:54 Vital Signs Vital signs: Vital Signs - 8 hr 06/09/23 12:04 06/09/23 13:54 06/09/23 14:00 Temperature 98.4 F Pulse Rate 71 68 72 Respiratory Rate 16 19 19 Blood Pressure 159/70 H Pulse Oximetry 98 Oxygen Delivery Method Room Air 06/09/23 14:01 06/09/23 14:01 06/09/23 14:15 Temperature Pulse Rate 76 71 Respiratory Rate 16 24 Blood Pressure 166/75 H Pulse Oximetry 94 95 Oxygen Delivery Method 06/09/23 14:38 06/09/23 14:41 06/09/23 14:42 Temperature Pulse Rate 84 70 Respiratory Rate Blood Pressure 166/75 H 154/69 H Pulse Oximetry 89 L Oxygen Delivery Method 06/09/23 14:42 06/09/23 14:45 06/09/23 15:00 Temperature Pulse Rate 81 79 76 Respiratory Rate 23 25 H 27 H Blood Pressure Pulse Oximetry 91 92 91 Oxygen Delivery Method Room Air 06/09/23 15:00 06/09/23 15:15 06/09/23 15:30 Temperature Pulse Rate 75 Respiratory Rate 28 H Blood Pressure 152/68 H 132/63 Pulse Oximetry 89 L Oxygen Delivery Method 06/09/23 15:30 Temperature Pulse Rate 67 Respiratory Rate 18 Blood Pressure Pulse Oximetry 86 L Oxygen Delivery Method Room Air MDM - Abdominal Pain Lab Data 06/09/23 11:55 06/09/23 11:55 Labs: Lab Results 06/09/23 Range/Units 11:55 WBC 8.2 (4.5-11.0) X10^3/uL RBC 4.49 L (4.5-5.9) X10^6/uL Hgb 13.2 L (13.5-17.5) g/dL Hct 39.5 L (41-53) % MCV 87.9 (80-100) fL MCH 29.4 (26-34) PG MCHC 33.4 (30-36) % RDW 14.8 (11.6-14.8) % Plt Count 226 (150-400) X10^3/uL Neut % (Auto) 78.8 H (50-75) % Lymph % (Auto) 8.9 L (25-40) % [place] % (Auto) 7.7 (3-14) % Eos % (Auto) 3.9 (2-4) % Baso % (Auto) 0.7 (0-2) % Neut # (Auto) 6500 (2871-3324) /uL Lymph # (Auto) 700 L (6207-1265) /uL [place] # (Auto) 600 (0-900) /uL Eos # (Auto) 300 (0-450) /uL Baso # (Auto) 100 (0-100) /uL PT 15.1 H (9.4-12.5) SECONDS INR 1.3 (0.9-1.3) Sodium 139 (137-145) mmol/L Potassium 3.4 (3.4-5.1) mmol/L Chloride 103 (98-107) mmol/L Carbon Dioxide 29 (22-32) mmol/L BUN 17 (9-20) mg/dL Creatinine 0.80 (0.66-1.25) mg/dL Estimated GFR > 60 (>60) mL/min BUN/Creatinine Ratio 21.3 (6-22) Glucose 106 (80-110) mg/dL Lactate Cancelled Calcium 8.9 (8.4-10.2) mg/dL Total Bilirubin 1.3 (0.2-1.3) mg/dL AST 62 H (17-59) IU/L ALT 65 H (<50) IU/L Alkaline Phosphatase 87 (38-126) U/L Total Creatine Kinase 102 (55-170) U/L Troponin I < 0.012 (0.01-0.034) ng/mL NT-Pro-B Natriuret Pep 327 H (<125) pg/mL Total Protein 6.5 (6.3-8.2) g/dL Albumin 3.0 L (3.5-5.0) g/dL Globulin 3.5 (1.7-4.1) g/dL Albumin/Globulin Ratio 0.9 L (1.0-2.8) Lipase 125 (23-300) U/L Imaging Data CT scan - abdomen/pelvis: Radiologist's Impression: Close Chest CTA (Signed) Darien Smith - 06/09/23 Abdomen/Pelvis CT (Signed) Darien Smith - 06/09/23 Abdomen/Pelvis CT (Signed) Bony Box - 06/08/23 Chest X-Ray (Signed) Doug Martínez - 06/04/23 Chest X-Ray (Signed) Baljinder Mena - 06/01/23 Chest/Abdomen X-ray (Signed) Baljinder Mena - 06/01/23 KUB X-Ray (Cancelled) 05/31/23 Abdomen X-Ray (Signed) CallKaz - 05/31/23 KUB X-Ray (Cancelled) 05/31/23 Abdomen X-Ray (Signed) Call,Kaz - 05/31/23 Abdomen/Pelvis CT (Signed) Sukh Coelho - 05/31/23 Knee MRI (Signed) Joe Wolff - 05/22/23 Lumbar Spine MRI (Addendum) Apollo Ogden - 02/27/23 Lumbar Spine X-Ray (Signed) Joel Crane - 02/19/23 Finger X-Ray (Signed) Obed Abraham - 04/24/21 Telemetry Strips 04/18/21 Abdomen/Pelvis CT (Signed) LuisDarien - 02/04/21 Abdomen Ultrasound (Signed) Joe Wolff - 01/20/19 Knee MRI (Signed) Liudmila Martínez - 09/08/18 Knee X-Ray (Signed) Claudine Caro - 07/30/18 Launch?Image [address] [address] [address] Scan Report Signed Patient: Eric Head MR#: [id number] : 1955 Acct:[id number] Age/Sex: 67 / M Date of Service: 06/09/23 Loc: ED Accession Number: [id number] Procedure: CT angio chest PE protocol Ordering Provider: Bambi Roldan D.O. PROCEDURE: CT ANGIO CHEST PE PROTOCOL INDICATIONS: pleuritic back pain, recent abd surgery, known pleural effus TECHNIQUE: After the administration of intravenous contrast, 2 mm thick sections acquired from the pulmonary apices to the posterior costophrenic angles. 3-dimensional maximum intensity projection (MIP) coronal and sagittal reformats were then acquired through the thorax. For radiation dose reduction, the following was used: automated exposure control, adjustment of mA and/or kV according to patient size. COMPARISON: [facility], CT, CT ABDOMEN PELVIS W CON, 06/08/2023, 11:50. [facility], CT, T-SPINE WITHOUT CONTRAST, 11/14/2016, 8:48. [facility], CR, XR CHEST 1V, 06/04/2023, 7:53. [facility], CT, CT ABDOMEN PELVIS W CON, 06/09/2023, 14:29. FINDINGS: Image quality: This examination is limited by involuntary motion artifact. Pulmonary arteries: Pulmonary arteries are normal in size, and demonstrate no intraluminal filling defects to suggest central pulmonary embolism. Lower Neck: No enlarged lymph nodes. Thyroid: No thyroid nodules which require sonographic follow up, per consensus guidelines. Axillae: No enlarged lymph nodes. Chest Wall: Unremarkable. Bones: Unremarkable. Lungs and Pleura: There is a small partially loculated left-sided pleural effusion, including along oblique fissure. A trace right-sided pleural effusion is seen. Dependent atelectasis can be seen both sides. Heart: Heart size is normal. There is a small pericardial effusion. There is mild coronary artery calcification. Thoracic Vessels: No aortic aneurysm. Mediastinum and Latisha: No enlarged lymph nodes. Esophagus: No wall thickening. There is a small hiatal hernia. Upper Abdomen: Liver cysts are seen, including a 10.5 cm left liver cyst. The visualized portions of the upper abdominal structures are otherwise unremarkable for imaging technique. IMPRESSION: No pulmonary embolus. Small, partially loculated left-sided pleural effusion, including fluid along the left minor fissure. There is a trace right-sided pleural effusion. A small pericardial effusion can be seen. Additional findings: Mild coronary artery calcification. Small hiatal hernia Liver cysts Dictated by: Darien Smith M.D. on 06/09/2023 at 14:05 Approved by: Darien Smith M.D. on 06/09/2023 at 14:10 CT scan - chest: Radiologist's Impression: Close Chest CTA (Signed) Darien Smith - 06/09/23 Abdomen/Pelvis CT (Signed) Darien Smith - 06/09/23 Abdomen/Pelvis CT (Signed) Bony Box - 06/08/23 Chest X-Ray (Signed) Doug Martínez - 06/04/23 Chest X-Ray (Signed) Baljinder Mena - 06/01/23 Chest/Abdomen X-ray (Signed) Baljinder Mena - 06/01/23 KUB X-Ray (Cancelled) 05/31/23 Abdomen X-Ray (Signed) CallKaz - 05/31/23 KUB X-Ray (Cancelled) 05/31/23 Abdomen X-Ray (Signed) Call,Kaz - 05/31/23 Abdomen/Pelvis CT (Signed) Sukh Coelho - 05/31/23 Knee MRI (Signed) Joe Wolff - 05/22/23 Lumbar Spine MRI (Addendum) Apollo Ogden - 02/27/23 Lumbar Spine X-Ray (Signed) Joel Crane - 02/19/23 Finger X-Ray (Signed) Obed Abraham - 04/24/21 Telemetry Strips 04/18/21 Abdomen/Pelvis CT (Signed) Darien Smith - 02/04/21 Abdomen Ultrasound (Signed) Joe Wolff - 01/20/19 Knee MRI (Signed) TanyaBecky koromagalo - 09/08/18 Knee X-Ray (Signed) Claudine Caro - 07/30/18 Launch?[facility] [address] [address] [address] Scan Report Signed Patient: Eric Head MR#: [id number] : 1955 Acct:[id number] Age/Sex: 67 / M Date of Service: 06/09/23 Loc: ED Accession Number: [id number] Procedure: CT angio chest PE protocol Ordering Provider: Bambi Roldan D.O. PROCEDURE: CT ANGIO CHEST PE PROTOCOL INDICATIONS: pleuritic back pain, recent abd surgery, known pleural effus TECHNIQUE: After the administration of intravenous contrast, 2 mm thick sections acquired from the pulmonary apices to the posterior costophrenic angles. 3-dimensional maximum intensity projection (MIP) coronal and sagittal reformats were then acquired through the thorax. For radiation dose reduction, the following was used: automated exposure control, adjustment of mA and/or kV according to patient size. COMPARISON: [facility], CT, CT ABDOMEN PELVIS W CON, 06/08/2023, 11:50. [facility], CT, T-SPINE WITHOUT CONTRAST, 11/14/2016, 8:48. [facility], CR, XR CHEST 1V, 06/04/2023, 7:53. [facility], CT, CT ABDOMEN PELVIS W CON, 06/09/2023, 14:29. FINDINGS: Image quality: This examination is limited by involuntary motion artifact. Pulmonary arteries: Pulmonary arteries are normal in size, and demonstrate no intraluminal filling defects to suggest central pulmonary embolism. Lower Neck: No enlarged lymph nodes. Thyroid: No thyroid nodules which require sonographic follow up, per consensus guidelines. Axillae: No enlarged lymph nodes. Chest Wall: Unremarkable. Bones: Unremarkable. Lungs and Pleura: There is a small partially loculated left-sided pleural effusion, including along oblique fissure. A trace right-sided pleural effusion is seen. Dependent atelectasis can be seen both sides. Heart: Heart size is normal. There is a small pericardial effusion. There is mild coronary artery calcification. Thoracic Vessels: No aortic aneurysm. Mediastinum and Latisha: No enlarged lymph nodes. Esophagus: No wall thickening. There is a small hiatal hernia. Upper Abdomen: Liver cysts are seen, including a 10.5 cm left liver cyst. The visualized portions of the upper abdominal structures are otherwise unremarkable for imaging technique. IMPRESSION: No pulmonary embolus. Small, partially loculated left-sided pleural effusion, including fluid along the left minor fissure. There is a trace right-sided pleural effusion. A small pericardial effusion can be seen. Additional findings: Mild coronary artery calcification. Small hiatal hernia Liver cysts Dictated by: Darien Smith M.D. on 06/09/2023 at 14:05 Approved by: Darien Smith M.D. on 06/09/2023 at 14:10 ECG Data Attestation: I personally reviewed and interpreted this ECG as follows: Interpretation: Sinus rhythm rate of 68 IN 182 QRS of 96 QTC of 408. No acute ST elevation depression noted. Nonspecific change. [facility] Narrative Medical decision making narrative: Patient's labs show a white count of 8.2 consistent with yesterday hemoglobin continues to be stable at 13 platelets are 226. Continued leftward shift but improved from when he was hospitalized. INR is 1.3 sodium is 139 potassium 3 4 with otherwise normal renal function CO2 is 29 with a BUN of 17 normal renal function. Bilirubin is 1.3 today improved from yesterday at 1.8 AST ALT are 62 and 65- lipase. Albumin slightly low at 3. Patient does have a urine culture pending with Gram-negative bacilli 08/06/1999 CFU awaiting identification and sensitivity. CT abdomen and pelvis from yesterday showed interval laparotomy with no dehiscence and distended loops of small bowel without discernible transition point. Favors adynamic ileus over partial low-grade small bowel obstruction. Small pleural effusions with bibasilar atelectasis. After discussion with patient he does have some new lower thoracic back pain. States that he stopped his Lovenox 2 days ago. He noted he would had some low O2 use at home it 89 T 90?%. Here he is not been hypoxic unless he falls asleep. He does state he normally uses a CPAP at night. He has felt a little bit more short of breath does have risk factors for PE so we will repeat CT abdomen pelvis but also get a CT angio of the chest. He was noted to have some pleural effusions which may be the source of his symptoms. CT imaging no pulmonary emboli on CT angio small partially loculated left-sided pleural effusion including fluid along the minor fissure, trace right-sided pleural, small pericardial effusion, mild coronary artery calcification, small hiatal hernia, liver cyst. CT abdomen pelvis shows prominent loops small proximal bowel but does appear overall improved from yesterday. Continued ileus suspected differential includes SBO but less likely to be. Anterior abdominal all postoperative change with fluid along incision line is more prominent on current study phlegmon suspected although differential includes developing abscess along incision line, small left sided and trace pleural effusion and small pericardial with simple appearing liver cyst and fat containing left inguinal hernia. Patient examination also shows some increased redness extending upwards on the incision and outwards somewhat. Started on IV antibiotics as patient has fluid collection appears to be more serosanguineous but does have increasing erythema along his incision site does not appear to be developing an infection. Spoke with Dr. Carl, general surgery accepts for inpatient admission. Reviewed all findings today, patient does get hypoxic when he is asleep but has known sleep apnea has not been hypoxic when awake. Discussed there does appear to be some increasing infection although drainage is serosanguineous. Did obtain culture we will send this. Covered with Zosyn and vanco. Dr. Carl notes do not have to continue the vancomycin. Reviewed findings with patient and family at bedside. Culture was sent. Discharge Plan Departure Patient Disposition: Admitted As Inpatient Clinical Impression: Phlegmon, Infected seroma, postoperative, Pleural effusion Admit Date/Time: 06/09/23 15:40 Admit Provider: Taylor Carl
--- NOTE | 2023-06-09 14:15 | DI.CT.S_ITS ---
PROCEDURE: CT ABDOMEN PELVIS W CON INDICATIONS: n/v new, recent sbo with surgery, seroma draining umbilical TECHNIQUE: After the administration of oral and IV contrast, axial sections were acquired from the lung bases to the pubic symphysis. Coronal and sagittal reformats were performed. For radiation dose reduction, the following was used: automated exposure control, adjustment of mA and/or kV according to patient size. COMPARISON: [facility], CT, CT ABDOMEN PELVIS W CON, 06/08/2023, 11:50. [facility], CT, CT ANGIO CHEST PE PROTOCOL, 06/09/2023, 14:29. [facility], CT, CT ABDOMEN PELVIS W CON, 05/31/2023, 3:34. FINDINGS: Image quality: Excellent. Lung bases: There is a small partially loculated left-sided pleural effusion. There is a trace right-sided pleural effusion. Dependent atelectasis can be seen. Heart: A small pericardial effusion is seen. ABDOMEN: Liver: No solid mass. Nonenhancing liver cysts are seen, including a 10.5 cm cyst on the left. Gallbladder: No radiopaque gallstones or wall thickening. Biliary ducts: No biliary dilation. Pancreas: No ductal dilation. Spleen: Size is within normal limits. Adrenal Glands: No adrenal nodules. Kidneys and Ureters: No hydronephrosis. No solid mass. No complex renal cystic lesion which requires follow up. Stomach and Bowel: Prominent loops proximal small bowel can be seen, which measure up to 4.2 cm. The distal small bowel loops are decompressed. No definite transition point can be seen. The colon is relatively decompressed. The stomach is decompressed at the time of this study, limiting its evaluation. Peritoneum: A small amount of fluid can be seen along the leaves of the mesentery. No free air. Ventral Wall: Recent postoperative change of the anterior abdominal wall can be seen. Fluid can be seen along the laparotomy line, yet without a focal abscess. Abdominal Nodes: No retroperitoneal or mesenteric adenopathy by size criteria. Vessels: Aorta and inferior vena cava are normal in size. PELVIS: Pelvic Organs: Unremarkable. Bladder: Unremarkable. Pelvic Nodes: No enlarged lymph nodes. Miscellaneous: A mildly sized fat containing left inguinal hernia is seen. Bones: No aggressive osseous abnormality. Focal L5-S1 degenerative change is seen. Milder degenerative changes are seen elsewhere. Partial fusion of the sacroiliac joints can be seen. IMPRESSION: Prominent loops of proximal small bowel can be seen, which have overall are improved compared to the CT study performed on the prior day. Continued ileus is suspected. Differential diagnosis includes small bowel obstruction, yet this is considered to be less likely. Anterior abdominal wall postoperative change, fluid along the incision line. The fluid is more prominent on the current study than on the prior. Phlegmon is suspected, although differential diagnosis includes developing abscess along the incision line. There is a small left-sided and a trace right-sided pleural effusion. There is a small pericardial effusion. Additional findings: Simple appearing liver cysts Fat containing left inguinal hernia Dictated by: Darien Smith M.D. on 06/09/2023 at 14:12 Approved by: Darien Smith M.D. on 06/09/2023 at 14:18
--- NOTE | 2023-06-09 14:15 | DI.CT.S_ITS ---
PROCEDURE: CT ANGIO CHEST PE PROTOCOL INDICATIONS: pleuritic back pain, recent abd surgery, known pleural effus TECHNIQUE: After the administration of intravenous contrast, 2 mm thick sections acquired from the pulmonary apices to the posterior costophrenic angles. 3-dimensional maximum intensity projection (MIP) coronal and sagittal reformats were then acquired through the thorax. For radiation dose reduction, the following was used: automated exposure control, adjustment of mA and/or kV according to patient size. COMPARISON: [facility], CT, CT ABDOMEN PELVIS W CON, 06/08/2023, 11:50. [facility], CT, T-SPINE WITHOUT CONTRAST, 11/14/2016, 8:48. [facility], CR, XR CHEST 1V, 06/04/2023, 7:53. [facility], CT, CT ABDOMEN PELVIS W CON, 06/09/2023, 14:29. FINDINGS: Image quality: This examination is limited by involuntary motion artifact. Pulmonary arteries: Pulmonary arteries are normal in size, and demonstrate no intraluminal filling defects to suggest central pulmonary embolism. Lower Neck: No enlarged lymph nodes. Thyroid: No thyroid nodules which require sonographic follow up, per consensus guidelines. Axillae: No enlarged lymph nodes. Chest Wall: Unremarkable. Bones: Unremarkable. Lungs and Pleura: There is a small partially loculated left-sided pleural effusion, including along oblique fissure. A trace right-sided pleural effusion is seen. Dependent atelectasis can be seen both sides. Heart: Heart size is normal. There is a small pericardial effusion. There is mild coronary artery calcification. Thoracic Vessels: No aortic aneurysm. Mediastinum and Latisha: No enlarged lymph nodes. Esophagus: No wall thickening. There is a small hiatal hernia. Upper Abdomen: Liver cysts are seen, including a 10.5 cm left liver cyst. The visualized portions of the upper abdominal structures are otherwise unremarkable for imaging technique. IMPRESSION: No pulmonary embolus. Small, partially loculated left-sided pleural effusion, including fluid along the left minor fissure. There is a trace right-sided pleural effusion. A small pericardial effusion can be seen. Additional findings: Mild coronary artery calcification. Small hiatal hernia Liver cysts Dictated by: Darien Smith M.D. on 06/09/2023 at 14:05 Approved by: Darien Smith M.D. on 06/09/2023 at 14:10
[2023-06-09] MEDS: cloNIDine 0.1 MG TABLET 0.2 MG PO ×2 (14:38→21:03)
[2023-06-09] MEDS: AMLODIPINE 5 MG TABLET PO (14:39)
[2023-06-09] MEDS: SODIUM CHLORIDE 0.9% 1,000 ML 125 ML IV ×2 (14:40→23:53)
[2023-06-09] MEDS: ACETAMINOPHEN IV 1,000 MG/100 ML VIAL 400 MG IV (14:40)
[2023-06-09 14:43] LABS: Creatine Kinase 102 U/L (55-170)
[2023-06-09 14:56] LABS: NT-proBNP (BNP-Adult 18+) 327 pg/mL (<125); Troponin I < 0.012 ng/mL (0.01-0.034)
[2023-06-09] MEDS: PIPERACILLIN/TAZO 4.5 GM in SODIUM CHLORIDE 0.9% 100 ML IV (15:46)
[2023-06-09] MEDS: VANCOMYCIN 1,500 MG/300 ML PIGGYBACK 200 MG IV (16:27)
[2023-06-09] MEDS: GABAPENTIN 300 MG CAPSULE PO ×2 (16:29→21:02)
[2023-06-09] MEDS: ACETAMINOPHEN 325 MG TABLET 650 MG PO ×2 (16:29→22:29)
[2023-06-09] MEDS: SCOPOLAMINE 1 PATCH TOP (18:15)
[2023-06-09] MEDS: SIMETHICONE 80 MG TABLET PO ×2 (18:16→21:02)
[2023-06-09] MEDS: PIPERACILLIN/TAZO 3.375 GM in SODIUM CHLORIDE 0.9% 100 ML IV (18:16)
--- NOTE | 2023-06-09 19:28 | PC.NURSE ---
Pt admit note - pain controlled, VSS, dressing changed and clean, dry, intact.
[2023-06-09] MEDS: FAMOTIDINE 20 MG TABLET 10 MG PO (21:02)
[2023-06-09] MEDS: CELECOXIB 200 MG CAPSULE PO (21:02)
[2023-06-10] MEDS: PIPERACILLIN/TAZO 3.375 GM in SODIUM CHLORIDE 0.9% 100 ML IV ×3 (01:26→17:17)
[2023-06-10] MEDS: ACETAMINOPHEN 325 MG TABLET 650 MG PO ×4 (03:47→23:10)
[2023-06-10 04:00] VITALS: BP 145/67; PULSE 64; RESP 20; TEMP 36.2; O2SAT 93
[2023-06-10] MEDS: GABAPENTIN 300 MG CAPSULE PO ×3 (07:50→20:53)
[2023-06-10] MEDS: SIMETHICONE 80 MG TABLET PO ×4 (07:50→20:53)
[2023-06-10] MEDS: CELECOXIB 200 MG CAPSULE PO ×2 (07:50→20:53)
[2023-06-10] MEDS: hydroCHLOROthiazide 25 MG TABLET PO (08:32)
[2023-06-10] MEDS: AMLODIPINE 5 MG TABLET PO (08:32)
[2023-06-10] MEDS: ATORVASTATIN 20 MG TABLET PO (08:32)
[2023-06-10] MEDS: cloNIDine 0.1 MG TABLET 0.2 MG PO ×2 (08:32→20:54)
[2023-06-10] MEDS: LOSARTAN 50 MG TABLET 100 MG PO (08:32)
[2023-06-10] MEDS: ENOXAPARIN 40 MG/0.4 ML SYRINGE SUBCUT (08:36)
--- NOTE | 2023-06-10 11:12 | CM.DANOTE ---
DCP Assessment Note Pt is a 67yo M here as a readmission following a 1o day stay here at the hospital. Has been having increased pain and large amounts of drainage from incision site. Dr. Carl consulting surgeon. PCP Satish Espitia Payer Medicare and Estefania YOSTW reviewed EMR.. Per previous DC assessment on 06/02/23, pt and spouse are active and indep at baseline. No DME prior to first admission, now is using walker just in case needed. Pt denies Hx of SNF and HH. 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 Pt has additional family support in area, including mother in law that he dc'd to last admission. Per previous CM notes, pt received information on hospital bed rentals for him to utilize at home. No additional CM needs from previous admissions. From pharmacist on this admission, potential incision abscess. Cultures are pending. Per Rn, pt is currently walking with walker, passing gas, and eating Plan: likely home with family when medically stable to dc. pending on culture results, CM team will follow closely to assist with infusion dc needs if needed. CM team will follow closely. JOSE MIGUEL Dinh Discharge Planning/Care Management Advanced directive, confirm from FAMILY Start: 06/09/23 16:20 Freq: Q24H Status: Active Protocol: Document 06/09/23 16:20 EM (Rec: 06/09/23 16:22 EM [id number]) Advance Directive, confirm on record Time 16:22 Person contacted Ashley Copy received No CM Discharge Assessment Start: 06/10/23 11:08 Freq: Status: Active Protocol: Document 06/10/23 11:08 (Rec: 06/10/23 11:12 [id number]) Discharge Planning Assessment Assigned Plaster Molder JOSE MIGUEL Stallings DPOA/Assigned Designee Name SpouseAshley Contact Information [phone] Advance Directives? No Advance Directives on File No History Provided By Patient,Significant Other, Medical Record Has Patient been admitted in last 30 Yes days? Comment recently admitted for SBO with NG tube, followed by a ex lapy. Hx of 5 prior SBOs. Comment lives in an RV on [place] while house is getting bulit, last admission he dc home to family to recover. Household Members spouse Type of transporation used prior to Drives own vehicle admit Independent with ADL's Yes Is patient alert and oriented? Yes Discharge Plan Home Transportation Arrangement Family Referrals Initiated None needed Additional Comment pending cultures from potential incision abcess Whiteboard Updated in Patient Room with No name and ext. # of Plaster Molder Review Status In Process Next Review Type Continued Stay Review
[2023-06-10 12:00] VITALS: BP 126/52; PULSE 80; RESP 18; TEMP 36.7
--- NOTE | 2023-06-10 12:08 | PM.HP.1 ---
History of Present Illness History of Present Illness Date Patient Seen: 06/10/23 Time Patient Seen: 12:08 Date of Onset of Symptoms: 06/10/23 Chief complaint: concerned about a bowel obstruction Narrative: S/P Xlap with FARZANA around 10 days ago. Went home and came back twice, the last time for possible recurrent ileus vs obstruction. He reports copious liquid stool all night but nothing(including flatus) during the day. Feels distended, taking only Tylenol at home. Had spontaneous drainage of seroma from midline when he came in last evening. Repeat CT is similar, his still has fluid in the subcutaneous midline incision. Large liver cyst, no SBO. The area reported as ileus is the segment of bowel that was abnormal at the time of surgery and contains gas. WBC is normal, no fever, serous drainage is not purulent. 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 Status: Never smoker alcohol intake: never Meds Home Medications and Allergies Home Medications Medication Instructions Recorded Confirmed Type alfuzosin 10 mg tablet,extended 10 mg PO Q OTHER DAY ##0 07/02/16 06/09/23 History release 24 hr diphenhydramine HCl 25 mg tablet 25 mg PO QHS ##0 07/02/16 06/09/23 History (Benadryl Allergy) omeprazole 20 mg capsule,delayed 20 mg PO QDAY ##0 07/02/16 06/09/23 History release Resmed Airsense 10 CPAP #1 ea 10/01/18 06/09/23 History clonidine HCl 0.2 mg tablet 0.2 mg PO BID 04/18/21 06/09/23 History hydrochlorothiazide 25 mg tablet 25 mg PO DAILY 04/18/21 06/09/23 History amlodipine 5 mg tablet 5 mg PO DAILY 08/01/21 06/09/23 History atorvastatin 20 mg tablet (Lipitor) 20 mg PO DAILY #0 tabs 08/01/21 06/09/23 History famotidine-Ca carb-mag hydrox 10 1 tab PO BEDTIME 06/01/23 06/09/23 History mg-800 mg-165 mg chewable tablet (Pepcid Complete) gabapentin 300 mg capsule 300 mg PO BEDTIME 06/01/23 06/09/23 History losartan 100 mg tablet 100 mg PO DAILY 06/01/23 06/09/23 History oxycodone 5 mg tablet 5 mg PO Q4HR PRN Pain, Moderate 06/07/23 06/09/23 Rx (4-6) #30 tabs celecoxib 100 mg capsule (Celebrex) 100 mg PO BID #30 caps 06/08/23 06/09/23 Rx docusate sodium 100 mg capsule 100 mg PO DAILY #20 caps 06/08/23 06/09/23 Rx (Colace) Allergies Allergy/AdvReac Type Severity Reaction Status Date / Time somatostatin AdvReac Unknown Verified 01/30/22 08:57 Review of Systems Review of Systems ROS: Yes All systems reviewed with the patient and are negative except as otherwise documented Exam Vital Signs (past 8 hours): Oxygen Delivery Method Room Air Oxygen Flow Rate 0 Const General: cooperative and anxious Nutritional Appearance: overweight Orientation: alert, awake and oriented x3 HENMT Head: normocephalic and atraumatic Ears: hearing grossly normal bilaterally Eyes General: appearance normal, both eyes and all related structures Sclera: sclerae normal Neck Neck: normal visual inspection and trachea midline Chest Chest: normal inspection of the chest Resp Effort & Inspection: normal respiratory effort, able to speak in complete sentences and cough Cardio Rate: regular rate Rhythm: regular rhythm GI Inspection: incision (marsha in place with reaction associated in normal pattern. Serous fluid ) Palpation: soft Skin General: elasticity normal Neuro General: patient alert, patient awake and patient oriented x3 Cognition: normal cognition Extrem General: normal to inspection Psych Appearance: grossly normal Mental Status: mental status grossly normal Affect: animated Thought Content: normal Judgment: judgment good Objective Labs 06/09/23 11:55 06/09/23 11:55 Labs: Laboratory Results - last 24 hr 06/09/23 11:55 WBC 8.2 RBC 4.49 L Hgb 13.2 L Hct 39.5 L MCV 87.9 MCH 29.4 MCHC 33.4 RDW 14.8 Plt Count 226 Neut % (Auto) 78.8 H Lymph % (Auto) 8.9 L [place] % (Auto) 7.7 Eos % (Auto) 3.9 Baso % (Auto) 0.7 Neut # (Auto) 6500 Lymph # (Auto) 700 L [place] # (Auto) 600 Eos # (Auto) 300 Baso # (Auto) 100 PT 15.1 H INR 1.3 Sodium 139 Potassium 3.4 Chloride 103 Carbon Dioxide 29 BUN 17 Creatinine 0.80 Estimated GFR > 60 BUN/Creatinine Ratio 21.3 Glucose 106 Lactate Cancelled Calcium 8.9 Total Bilirubin 1.3 AST 62 H ALT 65 H Alkaline Phosphatase 87 Total Creatine Kinase 102 Troponin I < 0.012 NT-Pro-B Natriuret Pep 327 H Total Protein 6.5 Albumin 3.0 L Globulin 3.5 Albumin/Globulin Ratio 0.9 L Lipase 125 Assessment & Plan Assessment & Plan narrative: CT was concerning for possible seroma infection, however WBC normal and fluid clear. No ileus but I am concerned about the possible diagnosis of inflammatory bowel disease moderate protein malnutrition Plan: IVF, antibiotics, wound care. encourage po for nutrition.
[2023-06-10] MEDS: OXYCODONE IR 5 MG TABLET 10 MG PO (14:51)
[2023-06-10 17:38] VITALS: BP 149/61; PULSE 80; RESP 16; TEMP 36.7; O2SAT 93
[2023-06-10] MEDS: SODIUM CHLORIDE 0.9% 1,000 ML 100 ML IV (20:54)
[2023-06-10] MEDS: FAMOTIDINE 20 MG TABLET 10 MG PO (20:54)
[2023-06-10 20:57] VITALS: BP 150/64; PULSE 72; RESP 20; TEMP 36.9; O2SAT 94
[2023-06-11] MEDS: PIPERACILLIN/TAZO 3.375 GM in SODIUM CHLORIDE 0.9% 100 ML IV (02:43)
[2023-06-11 04:29] VITALS: BP 145/66; PULSE 66; RESP 18; TEMP 36.2; O2SAT 97
[2023-06-11 06:03] LABS: Add Manual Diff / Slide Review NO; Basophils Absolute Auto 100 /uL (0-100); Basophils Percent Auto 1.2 % (0-2); Eosinophils Absolute Auto 400 /uL (0-450); Eosinophils Percent Auto 4.8 % (2-4); Hematocrit 34.4 % (41-53); Hemoglobin 11.8 g/dL (13.5-17.5); Lymphocytes Absolute Auto 800 /uL (1100-4500); Lymphocytes Percent Auto 9.4 % (25-40); Mean Corpuscular HGB Conc 34.2 % (30-36); Mean Corpuscular Hemoglobin 29.9 PG (26-34); Mean Corpuscular Volume 87.6 fL (80-100); Monocytes Absolute Auto 600 /uL (0-900); Monocytes Percent Auto 6.4 % (3-14); Neutrophils Absolute Auto 7100 /uL (1500-7000); Neutrophils Percent Auto 78.2 % (50-75); Platelet Count 207 X10^3/uL (150-400); Red Blood Cell Count 3.93 X10^6/uL (4.5-5.9); Red Cell Distribution Width 15.1 % (11.6-14.8)
[2023-06-11 06:11] LABS: Alanine Aminotransferase 46 IU/L (<50); Albumin 2.6 g/dL (3.5-5.0); Albumin Globulin Ratio 0.8 (1.0-2.8); Alkaline Phosphatase 75 U/L (38-126); Aspartate Aminotransferase 33 IU/L (17-59); BUN Creatinine Ratio 18.6 (6-22); Bilirubin Total 0.8 mg/dL (0.2-1.3); Blood Urea Nitrogen 16 mg/dL (9-20); Calcium 8.4 mg/dL (8.4-10.2); Carbon Dioxide 29 mmol/L (22-32); Chloride 109 mmol/L (98-107); Estimated Glomerular Filt Rate > 60 mL/min (>60); Globulin 3.1 g/dL (1.7-4.1); Glucose 100 mg/dL (80-110); HEMOLYSIS < 15 (0-50); Potassium 3.3 mmol/L (3.4-5.1); Sodium 141 mmol/L (137-145); Total Protein 5.7 g/dL (6.3-8.2)
[2023-06-11] MEDS: GABAPENTIN 300 MG CAPSULE PO ×3 (09:31→20:55)
[2023-06-11] MEDS: ENOXAPARIN 40 MG/0.4 ML SYRINGE SUBCUT (09:31)
[2023-06-11] MEDS: PRENATAL VIT,CALC/IRON/FOLIC 1 TABLET 1 TAB PO (09:31)
[2023-06-11] MEDS: LOSARTAN 50 MG TABLET 100 MG PO (09:32)
[2023-06-11] MEDS: hydroCHLOROthiazide 25 MG TABLET PO (09:32)
[2023-06-11] MEDS: ATORVASTATIN 20 MG TABLET PO (09:32)
[2023-06-11] MEDS: cloNIDine 0.1 MG TABLET 0.2 MG PO ×2 (09:32→20:55)
[2023-06-11] MEDS: AMLODIPINE 5 MG TABLET PO (09:32)
[2023-06-11] MEDS: CELECOXIB 200 MG CAPSULE PO ×2 (09:33→20:55)
[2023-06-11] MEDS: SIMETHICONE 80 MG TABLET PO ×4 (09:35→20:55)
[2023-06-11] MEDS: ACETAMINOPHEN 325 MG TABLET 650 MG PO ×2 (09:35→17:08)
[2023-06-11] MEDS: POTASSIUM CHLORIDE 20 MEQ TAB 40 MEQ PO ×2 (11:18→17:08)
--- NOTE | 2023-06-11 11:27 | PM.PNPO.1 ---
Subjective Subjective Date Patient Seen: 06/11/23 Time Patient Seen: 11:27 Exam Vital Signs (past 8 hours): - 06/11/23 04:29 Temperature 97.2 F L Pulse Rate 66 Respiratory Rate 18 Blood Pressure 145/66 H Pulse Oximetry 97 Oxygen Flow Rate 0 Oxygen Delivery Method Room Air Oxygen Flow Rate 0 Narrative Exam Narrative: Pt improved, had several loose BM's last night. Concerned about continued leaking of serous fluid from wound. Neuro: baseline Cardiac: normal GI: inconsistent, no ileus or SBO, NO signs of Cdif. tolerating po. wound: serous drainage continues due to malnutrition, No evidence of clincal infection. Ecoli of wound swab is covered in the antibiotics used. Urologic: burning and urgency with incontinence. Const General: cooperative and comfortable Objective Labs 06/11/23 05:20 06/11/23 05:20 Labs: Laboratory Results - last 24 hr 06/11/23 05:20 WBC 9.0 RBC 3.93 L Hgb 11.8 L Hct 34.4 L MCV 87.6 MCH 29.9 MCHC 34.2 RDW 15.1 H Plt Count 207 Neut % (Auto) 78.2 H Lymph % (Auto) 9.4 L [place] % (Auto) 6.4 Eos % (Auto) 4.8 H Baso % (Auto) 1.2 Neut # (Auto) 7100 H Lymph # (Auto) 800 L [place] # (Auto) 600 Eos # (Auto) 400 Baso # (Auto) 100 Sodium 141 Potassium 3.3 L Chloride 109 H Carbon Dioxide 29 BUN 16 Creatinine 0.86 Estimated GFR > 60 BUN/Creatinine Ratio 18.6 Glucose 100 Calcium 8.4 Total Bilirubin 0.8 AST 33 ALT 46 Alkaline Phosphatase 75 Total Protein 5.7 L Albumin 2.6 L Globulin 3.1 Albumin/Globulin Ratio 0.8 L PFSH Medical History Rhinitis, nonallergic, chronic Left knee pain Obesity (BMI 30-39.9) Hypertension Obstructive sleep apnea of adult Snoring Dehydration Sinusitis Cephalgia Febrile illness Corneal abrasion, left Surgical History Meniscus degeneration Social History marital status: details: to teri Ramirez in [place] household members: spouse lives independently: Yes caregiver/support person: No housing: house education level: other 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 Time Spent With Patient Time with patient: Greater than 35 minutes
--- NOTE | 2023-06-11 11:58 | CM.DPNOTE ---
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 Per surgeon, going to keep pt overnight to dc home tomorrow on oral antibiotics. No CM needs. Plan: home with family support when medically stable, likely tomorrow, back to [facility] with spouse support. CM team will continue to follow as needed. JOSE MIGUEL Dinh
[2023-06-11 12:00] VITALS: BP 145/67; PULSE 67; RESP 16; TEMP 36.8; O2SAT 94
[2023-06-11] MEDS: FAMOTIDINE 20 MG TABLET PO ×2 (13:05→20:55)
[2023-06-11] MEDS: CIPROFLOXACIN 250 MG TABLET 500 MG PO ×2 (13:05→20:55)
[2023-06-11] MEDS: FUROSEMIDE 40 MG TABLET PO (13:05)
[2023-06-11 20:00] VITALS: BP 148/69; PULSE 68; RESP 16; TEMP 36.8; O2SAT 93
[2023-06-11 20:55] VITALS: BP 148/69; PULSE 68
[2023-06-12 01:52] VITALS: BP 148/64; PULSE 70; RESP 16; TEMP 37.1; O2SAT 94
[2023-06-12 05:26] LABS: BUN Creatinine Ratio 17.6 (6-22); Blood Urea Nitrogen 16 mg/dL (9-20); Calcium 9.1 mg/dL (8.4-10.2); Carbon Dioxide 30 mmol/L (22-32); Chloride 105 mmol/L (98-107); Estimated Glomerular Filt Rate > 60 mL/min (>60); Glucose 127 mg/dL (80-110); HEMOLYSIS < 15 (0-50); Potassium 3.7 mmol/L (3.4-5.1); Sodium 141 mmol/L (137-145)
--- NOTE | 2023-06-12 05:57 | PC.NURSE ---
Dressing changed at 0530. Small amount of serosanguineous drainage leaking outside of ostomy catch-bag/dressing. As there was no drainage in the ostomy bag, this nurse replaced the dressing with an ABD secured with paper tape and reinforced w/binder. Pt tolerated well.
[2023-06-12] MEDS: hydroCHLOROthiazide 25 MG TABLET PO (08:45)
[2023-06-12] MEDS: LOSARTAN 50 MG TABLET 100 MG PO (08:45)
[2023-06-12] MEDS: PRENATAL VIT,CALC/IRON/FOLIC 1 TABLET 1 TAB PO (08:45)
[2023-06-12] MEDS: CIPROFLOXACIN 250 MG TABLET 500 MG PO ×2 (08:45→20:58)
[2023-06-12] MEDS: SIMETHICONE 80 MG TABLET PO ×4 (08:46→21:02)
[2023-06-12] MEDS: GABAPENTIN 300 MG CAPSULE PO ×3 (08:46→20:59)
[2023-06-12] MEDS: ATORVASTATIN 20 MG TABLET PO (08:46)
[2023-06-12] MEDS: AMLODIPINE 5 MG TABLET PO (08:46)
[2023-06-12] MEDS: CELECOXIB 200 MG CAPSULE PO (08:46)
[2023-06-12] MEDS: FAMOTIDINE 20 MG TABLET PO ×2 (08:46→20:57)
[2023-06-12] MEDS: cloNIDine 0.1 MG TABLET 0.2 MG PO ×2 (08:46→20:57)
[2023-06-12] MEDS: FUROSEMIDE 40 MG TABLET PO (08:46)
[2023-06-12] MEDS: ENOXAPARIN 40 MG/0.4 ML SYRINGE SUBCUT (08:47)
[2023-06-12] MEDS: SODIUM CHLORIDE 0.9% FLUSH 10 ML IV ×2 (08:47→21:11)
[2023-06-12] MEDS: ACETAMINOPHEN 325 MG TABLET 650 MG PO ×3 (08:52→20:59)
--- NOTE | 2023-06-12 10:28 | DI.CT.S_ITS ---
PROCEDURE: CT ABDOMEN PELVIS W CON INDICATIONS: abdomen pain TECHNIQUE: After the administration of intravenous contrast, axial sections acquired from the lung bases to the pubic symphysis. Coronal and sagittal reformats were performed. For radiation dose reduction, the following was used: automated exposure control, adjustment of mA and/or kV according to patient size. COMPARISON: [facility], CT, CT ABDOMEN PELVIS W CON, 06/08/2023, 11:50. [facility], CT, CT ABDOMEN PELVIS W CON, 06/09/2023, 14:29. FINDINGS: Image quality: Diagnostic. Lower Chest: Small left pleural effusion, increased. Suspect left basilar compressive atelectasis. Trace right pleural fluid is similar. Mild streaky opacity in the right lower lobe. Subcarinal lymph node measuring 1.1 cm, (09/16). ABDOMEN: Liver: Several hepatic cysts are unchanged. Large cyst in the left lobe of the liver measuring 10.4 cm. Gallbladder: No radiopaque gallstones or wall thickening. Biliary ducts: No biliary dilation. Pancreas: No ductal dilation. Spleen: Size is within normal limits. Adrenal Glands: No adrenal nodules. Kidneys and Ureters: No hydronephrosis. No solid mass. No complex renal cystic lesion which requires follow up. Stomach and Bowel: Colon is not distended. The appendix is not dilated. There are mildly dilated loops of small bowel in the left abdomen. These are decreased compared to prior CTs. There is a small collection of fluid in the left paramedian abdomen measuring 3 x 2.6 x 2.3 cm, estimated volume of 9 cc, (32 and 64), slightly decreased. (Previously 4.1 x 3.2 x 2.5 cm, estimated volume of 17 cc). However, there may be peripheral enhancement. No free air. There is a mild mesenteric edema. Contrast transits into the distal small bowel. No small bowel obstruction is demonstrated. The stomach is not distended. Peritoneum: No ascites. No pneumoperitoneum. Ventral Wall: Midline staple line. At the inferior aspect there is mild thickening measuring 1.7 cm in diameter, (), previously 2.8 cm. The fluid density is much less conspicuous. No loculated collection. Mild subcutaneous edema. There are a few foci of subcutaneous gas in the left abdominal wall which could be due to subcutaneous injections. Abdominal Nodes: No retroperitoneal or mesenteric adenopathy by size criteria. Vessels: Aorta and inferior vena cava are normal in size. PELVIS: Pelvic Organs: Unremarkable. Bladder: Unremarkable. Pelvic Nodes: No enlarged lymph nodes. Miscellaneous: Fat containing left inguinal hernia. Bones: No aggressive osseous abnormality. Multilevel DDD. IMPRESSION: 1. Mildly dilated loops of small bowel in the left abdomen, mildly decreased. No small bowel obstruction. 2. Small collection of free fluid in the left paramedian abdomen measuring 3 cm, estimated volume of 9 cc, is decreased. Subtle peripheral enhancement. Small abscess or phlegmon is difficult to exclude. No pneumoperitoneum. 3. Ventral abdominal wall fluid collection is decreased. 4. Small left pleural effusion is increased. Dictated by: Kaz Hawkins M.D. on 06/12/2023 at 11:57 Approved by: Kaz Hawkins M.D. on 06/12/2023 at 12:18
--- NOTE | 2023-06-12 10:45 | CM.DPNOTE ---
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 Per Dr Carl yesterday, likely home today with family support. SUPERVISOR COMPOUNDING AND FINISHING entered room and introduced self and role. Pt sitting up in chair with family in room. Pt reports feeling in more pain today and wanting to stay another night. This SUPERVISOR COMPOUNDING AND FINISHING informed pt it is up to provider to make final dc decision. Pt confirms no CM needs Plan: home with family when medically stable, likely today. No CM needs identified at this time, CM team will follow as needed. JOSE MIGUEL Dinh
[2023-06-12 12:00] VITALS: BP 153/63; PULSE 77; RESP 18; TEMP 36.6; O2SAT 95
--- NOTE | 2023-06-12 13:39 | PM.PNPO.1 ---
Subjective Subjective Date Patient Seen: 06/12/23 Time Patient Seen: 13:40 Interval history: Patient concerned about lack of progress and diarrhea. Repeat CT scan shows no complication, decreased small bowel diameter and decreased seroma. No bowel obstruction. Able to tolerate PO PE: wound is intact, drainage is serous, no clear infection. Exam Vital Signs (past 8 hours): Oxygen Delivery Method Room Air Oxygen Flow Rate 2 Objective Labs 06/11/23 05:20 06/12/23 04:50 Labs: Laboratory Results - last 24 hr 06/12/23 04:50 Sodium 141 Potassium 3.7 Chloride 105 Carbon Dioxide 30 BUN 16 Creatinine 0.91 Estimated GFR > 60 BUN/Creatinine Ratio 17.6 Glucose 127 H Calcium 9.1 PFSH Medical History Rhinitis, nonallergic, chronic Left knee pain Obesity (BMI 30-39.9) Hypertension Obstructive sleep apnea of adult Snoring Dehydration Sinusitis Cephalgia Febrile illness Corneal abrasion, left Surgical History Meniscus degeneration Social History marital status: details: tru Ramirez, lives in [place] household members: spouse lives independently: Yes caregiver/support person: No housing: house education level: 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 Now with diarrhea and bloat. discussed the affects of malnutrition treatment of diarrhea symptoms with an anti diarrea med Plan: Nutrition consult check stool for Cdif Immodium for diarrhea Postoperative status: doing well Postoperative plan: ambulate and advance diet Time Spent With Patient Time with patient: Greater than 35 minutes
[2023-06-12] MEDS: LOPERAMIDE 2 MG CAPSULE PO (14:18)
[2023-06-12 18:00] VITALS: BP 155/59; PULSE 72; RESP 18; TEMP 37; O2SAT 94
[2023-06-12 19:09] LABS: Clostridium Difficile Tox PCR Negative for C. diff (Negative)
[2023-06-12 20:06] VITALS: BP 142/54; PULSE 75; RESP 16; TEMP 37.1; O2SAT 94
[2023-06-12 20:57] VITALS: BP 146/56; PULSE 77
[2023-06-13 00:03] VITALS: BP 130/71; PULSE 69; RESP 17; TEMP 36.7; O2SAT 95
[2023-06-13 06:00] VITALS: BP 131/63; PULSE 70; RESP 17; TEMP 36.6; O2SAT 95
[2023-06-13 08:00] VITALS: BP 156/58; PULSE 75; RESP 16; TEMP 36.6; O2SAT 94
[2023-06-13 09:40] VITALS: BP 156/58; PULSE 75
[2023-06-13] MEDS: cloNIDine 0.1 MG TABLET 0.2 MG PO (09:40)
[2023-06-13] MEDS: CIPROFLOXACIN 250 MG TABLET 500 MG PO (09:40)
[2023-06-13 09:41] VITALS: BP 156/58; PULSE 94
[2023-06-13] MEDS: hydroCHLOROthiazide 25 MG TABLET PO (09:41)
[2023-06-13] MEDS: LOSARTAN 50 MG TABLET 100 MG PO (09:41)
[2023-06-13] MEDS: ENOXAPARIN 40 MG/0.4 ML SYRINGE SUBCUT (09:41)
[2023-06-13] MEDS: PRENATAL VIT,CALC/IRON/FOLIC 1 TABLET 1 TAB PO (09:41)
[2023-06-13] MEDS: AMLODIPINE 5 MG TABLET PO (09:41)
[2023-06-13] MEDS: GABAPENTIN 300 MG CAPSULE PO (09:41)
[2023-06-13] MEDS: FAMOTIDINE 20 MG TABLET PO (09:45)
[2023-06-13] MEDS: SIMETHICONE 80 MG TABLET PO ×2 (09:54→13:37)
--- NOTE | 2023-06-13 14:15 | P.DS_ITS ---
History of Present Illness History of Present Illness Date Patient Seen: 06/13/23 Time Patient Seen: 14:16 Chief complaint: concerned about a bowel obstruction Narrative: The patient is a 67-year-old man who had an exploratory laparotomy with small- bowel resection for a segment of ischemic bowel by Dr. Drake about 11 days ago. See the op note for details. He was then readmitted 2 days ago after spontaneously draining a midline wound seroma. He was started on ciprofloxacin at that time. Discharge Providers Provider Date of admission: 06/12/23 11:47 Discharge Date: 06/13/23 Primary care physician: Satish Espitia MD Consults: 06/12/23 12:40 Consult to Dietitian, Adult Routine Comment: Reason For Exam: Having diarrhea, bloating Discharge provider: Eric Estrada MD Summary Hospital Course Hospital Course: He has tolerated a diet and had bowel function. His C diff was negative. The drainage from the midline wound has decreased significantly in the past 24 hours. He feels ready to go home now. Exam Vital Signs (past 8 hours): - 06/13/23 08:00 06/13/23 09:40 06/13/23 09:41 Temperature 98 F Pulse Rate 75 75 94 H Respiratory Rate 16 Blood Pressure 156/58 H 156/58 H 156/58 H Pulse Oximetry 94 Oxygen Flow Rate 0 Oxygen Delivery Method Room Air Oxygen Flow Rate 0 Objective Labs 06/11/23 05:20 06/12/23 04:50 Labs: Laboratory Results - last 24 hr 06/12/23 14:42 C. difficile Tox (PCR) Negative for c. 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 alcohol intake: never Discharge Plan Discharge Plan Patient Disposition: Home Discharge orders & Medications Prescriptions: New ciprofloxacin HCl 500 mg tablet 500 mg PO Q12H Qty: 8 0RF Continued diphenhydramine HCl [Benadryl Allergy] 25 MG tablet 25 mg PO QHS Qty: 0 omeprazole 20 MG capsule,delayed release(DR/EC) 20 mg PO QDAY Qty: 0 alfuzosin 10 MG tablet extended release 24 hr 10 mg PO Q OTHER DAY Qty: 0 atorvastatin [Lipitor] 20 mg tablet 20 mg PO DAILY Qty: 0 gabapentin 300 mg Capsule 300 mg PO BEDTIME Pepcid Complete 10-800-165 mg Tablet,Chewable 1 tab PO BEDTIME losartan 100 mg tablet 100 mg PO DAILY oxycodone 5 mg Tablet 5 mg PO Q4HR PRN (Reason: Pain, Moderate (4-6)) Qty: 30 0RF clonidine HCl 0.2 mg tablet 0.2 mg PO BID hydrochlorothiazide 25 mg tablet 25 mg PO DAILY Patient Comments: has ot taken in wo weeks due to low Potassium level celecoxib [Celebrex] 100 mg capsule 100 mg PO BID Qty: 30 0RF Rx Instructions: Was Rx but has not filled. docusate sodium [Colace] 100 mg capsule 100 mg PO DAILY Qty: 20 0RF (DME) Resmed Airsense 10 CPAP Qty: 1 Dose Instruction: As directed Patient Comments: Pressure: 10-16 cmH2O DME: [facility] Rx Instructions: As directed amlodipine 5 mg tablet 5 mg PO DAILY Follow up/Referrals: Satish Espitia MD [Primary Care Provider] - Visit Report/Discharge Packet Instructions: Ileus, Wetzel Diet Stand Alone Forms: Patient Portal/API, Stroke Signs & Symptoms Discharge Data Primary Care Provider: Satish Espitia
--- NOTE | 2023-06-13 14:55 | PC.NURSE ---
Day shift: Discharge instructions gone over with patient and patient's spouse. PIV d/c'ed prior to discharge. Abdominal incision cleaned and new dressing applied. Discharge education given about wound care, follow up, s/sx to watch for, etc. Pt and patient's stated understanding. All questions answered. DEBRA Delatorre walked patient to exit via wheelchair. All belongings with patient.
== END 2023-06-13 14:57 | disposition home or self-care (01) | DRG 920 ==
LOC: ED 15:36 → AC 15:52
PROVIDERS: Admitting Provider Surgery; Emergency Provider Emergency Medicine; PCP Family Medicine; Referring Provider Emergency Medicine; Visit Provider Surgery
DX: K91.872 Postprocedural seroma of a digestive system organ or structure following a digestive system procedure (principal); E44.0 Moderate protein-calorie malnutrition; B96.20 Unspecified Escherichia coli [E. coli] as the cause of diseases classified elsewhere; I10 Essential (primary) hypertension; Z68.35 Body mass index [BMI] 35.0-35.9, adult
CPT/HCPCS: 36415; 71275; 74177; 80048; 80053; 82550; 83690; 83880; 84484; 85025; 85610; 87045; 87070; 87075; 87077; 87186; 87205; 87493; 87899; 93005; 96374; 96375; 99231; 99232; 99238; 99284; 99285; G0378; A9270; J0131; J1650; J2405; J2543; Q9967

== ENCOUNTER 2023-08-07 09:51 | Day surgery (SDC) | payer MEDICARE, OTHER, SELFPAY ==
[2023-06-09 16:18] VITALS: BMI 35.6
--- NOTE | 2023-08-07 | PATH_ITS ---
[facility] Accession Number: [id number] No. of containers..03 Tissue . 01 Material submitted: . PART A: cecum - CECAL POLYP PART B: ileum - TERMINAL ILLEUM PART C: colon - POLYP @ 40cm . 01 Clinical history: . B) R/O ILEITIS . 01 Diagnosis: A. CECAL POLYP: Tubular adenoma. . B. TERMINAL ILEUM, BIOPSY: Ileal mucosa with no diagnostic abnormality. Negative for active inflammation, granulomas, dysplasia, or malignancy. . C. COLON POLYP AT 40 CM: Tubular adenoma. MRV 08/09/2023 1225 Local . 01 Electronically signed: . Esa Mendenhall MD, PhD, Pathologist NPI- [id number] . 01 Gross description: . Part A: CECAL POLYP: Received in formalin is 1 fragment(s) of perez, soft tissue measuring 0.6 x 0.3 x 0.3 cm submitted entirely in 1 cassette(s) Part B: TERMINAL ILLEUM : Received in formalin is 2 fragment(s) of perez, soft tissue measuring 0.2 x 0.1 x 0.1 cm to 0.1 x 0.1 x 0.1 cm submitted entirely in 1 cassette(s) Part C: POLYP @ 40cm : Received in formalin is 1 fragment(s) of perez, soft tissue measuring 0.4 x 0.3 x 0.3 cm submitted entirely in 1 cassette(s) /AAY 08/08/2023 0448 Local . 01 Pathologist provided ICD-10: D12.0, D12.6 . 01 CPT . 566099, 693823, 768446 Specimen Comment: A courtesy copy of this report has been sent to [phone] Performed at: 01 [facility] [address], [place], [place] [id number] MD Wil Jj MD Phone: [phone]
[2023-08-07 10:22] VITALS: BP 147/71; PULSE 62; RESP 16; TEMP 36.3; O2SAT 96
[2023-08-07] MEDS: LACTATED RINGERS 1,000 ML 42 ML IV (10:24)
--- NOTE | 2023-08-07 10:49 | P.HP_ITS ---
History of Present Illness History of Present Illness Date Patient Seen: 08/07/23 Chief complaint: Colonoscopy Narrative: History of small-bowel obstruction with findings consistent with possible Crohn's disease. Status post lysis of adhesions. Colonoscopy to be done to rule out terminal ileitis. 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 alcohol intake: never Meds Home Medications and Allergies Home Medications Medication Instructions Recorded Confirmed Type alfuzosin 10 mg tablet,extended 10 mg PO Q OTHER DAY ##0 07/02/16 08/07/23 History release 24 hr diphenhydramine HCl 25 mg tablet 25 mg PO QHS ##0 07/02/16 08/07/23 History (Benadryl Allergy) omeprazole 20 mg capsule,delayed 20 mg PO QDAY ##0 07/02/16 07/11/23 History release Resmed Airsense 10 CPAP #1 ea 10/01/18 07/11/23 History clonidine HCl 0.2 mg tablet 0.2 mg PO BID 04/18/21 08/07/23 History hydrochlorothiazide 25 mg tablet 25 mg PO DAILY 04/18/21 08/07/23 History amlodipine 5 mg tablet 5 mg PO DAILY 08/01/21 08/07/23 History losartan 100 mg tablet 100 mg PO DAILY 06/01/23 08/07/23 History atorvastatin 20 mg tablet (Lipitor) 20 mg PO .QOD #0 tabs 07/11/23 08/07/23 History budesonide 9 mg capsule,extended 9 mg PO DAILY 07/11/23 08/07/23 History release famotidine-Ca carb-mag hydrox 10 1 tab PO .QOD 07/11/23 08/07/23 History mg-800 mg-165 mg chewable tablet (Pepcid Complete) Allergies Allergy/AdvReac Type Severity Reaction Status Date / Time somatostatin AdvReac Mild Verified 08/07/23 10:18 Exam Vital Signs (past 8 hours): - 08/07/23 10:22 Temperature 97.4 F L Pulse Rate 62 Respiratory Rate 16 Blood Pressure 147/71 H Pulse Oximetry 96 Oxygen Delivery Method Room Air Oxygen Delivery Method Room Air Narrative Exam Narrative: Oropharynx free of lesions Chest clear to auscultation percussion Cardiac exam reveals no S3 or murmur Assessment & Plan Assessment & Plan narrative: History of proximal small-bowel obstruction possibly due to Crohn's. Colonoscopy to determine whether terminal ileitis is present. Risks, risks and alternatives have been explained.
--- NOTE | 2023-08-07 10:51 | PM.OP.COLON ---
Operative Date/Time/Diagnoses Date of procedure: 08/07/23 Pre-op diagnosis: See indication and findings Procedure & Clinicians Study performed: Colonoscopy Indications: History of small-bowel obstruction proximally status post lysis of adhesions an appearance of possible Crohn's disease. Need to evaluate terminal ileum to rule out terminal ileitis. Also family history of colon cancer Surgeon: Phylicia Gonzalez Procedure Notes Procedure in detail: After informed consent was obtained the patient was placed in left lateral decubitus position. The video colonoscope was introduced the rectum slowly advanced cecum. On slow withdrawal mucosa was carefully examined. The scope was removed. The patient tolerated procedure well. Blood loss none Complications none Sedation mac Findings 1. Terminal ileum had mild debris but no actual inflammation. (See photos). Biopsies taken per Dr. Yates 2. 6 mm polyp in the cecum Jumbo biopsy removed x2 3. 1 cm semi pedunculated polyp at 40 cm. Hot snared and removed completely 4. Otherwise negative colonoscopy to cecum I will leave it up to Dr. Yates to possibly schedule PillCam to absolutely rule out Crohn's disease in the remainder of the small bowel. Otherwise will await pathology and determine whether not he needs recall in 3 years or 5 years
[2023-08-07 11:35] VITALS: BP 100/55; PULSE 56; RESP 10; TEMP 36.6; O2SAT 93
[2023-08-07 11:40] VITALS: BP 102/67; PULSE 55; RESP 93
[2023-08-07 11:46] VITALS: BP 116/63; PULSE 52; RESP 10; O2SAT 92
[2023-08-07 11:51] VITALS: BP 121/62; PULSE 53; RESP 16; O2SAT 94
== END 2023-08-07 13:01 | disposition home or self-care (01) ==
PROVIDERS: PCP Family Medicine; Referring Provider Internal Medicine Gastroenterology; Visit Provider Internal Medicine Gastroenterology
PROC: 0DJD8ZZ Inspection of Lower Intestinal Tract, Via Natural or Artificial Opening Endoscopic (ICD-10-PCS; CPT 45378; principal; 2023-08-07 11:00)
DX: Z87.19 Personal history of other diseases of the digestive system (principal); Z80.0 Family history of malignant neoplasm of digestive organs; D12.0 Benign neoplasm of cecum; D12.6 Benign neoplasm of colon, unspecified
CPT/HCPCS: 45385; 45380; J2704

== ENCOUNTER → 2023-10-18 16:25 | Outpatient (CLI) | payer MEDICARE, OTHER, SELFPAY ==
[2023-06-09 16:18] VITALS: BMI 35.6
--- NOTE | 2023-10-18 16:36 | DI.RAD.S_ITS ---
PROCEDURE: XR ABDOMEN 1V INDICATIONS: FOREIGN BODY IN INTESTINE TECHNIQUE: One view of the abdomen acquired. COMPARISON: [facility], CR, XR ABDOMEN 1V, 05/31/2023, 6:53. FINDINGS: Surgical changes and devices: Rectangular radiopaque density projects over the left upper quadrant measuring 2.4 cm. Bowel: Bowel gas pattern is normal. Soft tissues: No suspicious abdominal calcifications. Visualized solid organ contours appear normal in size. Bones: No suspicious bony lesions. IMPRESSION: 1. Nonobstructive bowel gas pattern. 2. Rectangular radiopaque density projects over the left upper quadrant measuring 2.4 cm and may represent the capsule. Dictated by: Sukh Coelho M.D. on 10/19/2023 at 10:56 Approved by: Sukh Coelho M.D. on 10/19/2023 at 10:58
== END ==
PROVIDERS: PCP Family Medicine; Referring Provider Internal Medicine; Visit Provider Internal Medicine
DX: T18.3XXA Foreign body in small intestine, initial encounter (principal)
CPT/HCPCS: 74018

== ENCOUNTER → 2023-10-25 08:53 | Outpatient (CLI) | payer MEDICARE, OTHER, SELFPAY ==
[2023-06-09 16:18] VITALS: BMI 35.6
[2023-10-25 09:50] LABS: C-Reactive Protein Quant 0.8 mg/dL (<1.0)
== END ==
PROVIDERS: PCP Family Medicine; Referring Provider Internal Medicine; Visit Provider Internal Medicine
DX: K50.012 Crohn's disease of small intestine with intestinal obstruction (principal)
CPT/HCPCS: 36415; 83993; 86140; 86671

== ENCOUNTER → 2023-10-29 15:45 | Outpatient (CLI) | payer MEDICARE, OTHER, SELFPAY ==
[2023-06-09 16:18] VITALS: BMI 35.6
--- NOTE | 2023-10-29 | DI.RAD.S_ITS ---
PROCEDURE: XR KUB INDICATIONS: METAL IN GI TRACT FOR MRI TECHNIQUE: One view of the abdomen acquired. COMPARISON: [facility], CR, XR PELVIS WITH LATERAL HIP LEFT, 10/17/2023, 8:04. [facility], CR, XR ABDOMEN 1V, 10/18/2023, 15:44. FINDINGS: Surgical changes and devices: None. Bowel: Bowel gas pattern is normal. Moderate amount of stool in colon. No radiopaque foreign body. Soft tissues: No suspicious abdominal calcifications. Visualized solid organ contours appear normal in size. Bones: No suspicious bony lesions. IMPRESSION: No radiopaque foreign body. Dictated by: Doug Martínez M.D. on 10/29/2023 at 16:01 Approved by: Doug Martínez M.D. on 10/29/2023 at 16:03
--- NOTE | 2023-10-29 15:46 | DI.MRI.S_ITS ---
PROCEDURE: MR HIP LT WO CON INDICATIONS: Unilateral primary osteoarthritis, left hip TECHNIQUE: Noncontrast coronal T1 spin echo and STIR through the bony pelvis. Coronal and axial T2 fast spin echo with fat saturation, sagittal T1 spin echo, and oblique axial T2 fast spin echo with fat saturation through the hip. COMPARISON: None. FINDINGS: Image quality: Excellent. Bones and joints: Mildly heterogeneous marrow signal throughout visualized bony pelvis and lower lumbar spine vertebral bodies without discrete intraosseous lesion. No marrow edema or fracture. Mild bilateral hip joint osteoarthritic changes are seen with joint space narrowing and subchondral sclerosis. No avascular necrosis of the femoral heads. The visualized lower lumbar spine appears normally aligned. Tendons and ligaments: There is low-grade partial-thickness tear involving distal left gluteus medius tendon at its insertion on greater trochanter extending to musculotendinous junction. Distal left gluteus minimus tendinosis is also seen. The nearby proximal iliotibial band also appears intact. The iliopsoas tendon appears intact, without adjacent bursal fluid collections or evidence for impingement syndrome. The origin of the hamstring tendon is intact at the ischial tuberosity. Labrum and cartilage: There is fraying of superior anterior labrum with adjacent tiny cystic area measures up to 4 mm in size concerning for superior anterior left hip labral tear with perilabral cyst formation. Thinning of articulating cartilage over left femoral head is seen. Soft tissues: Visualized muscles demonstrate normal bulk and internal signal. Quadratus femoris muscle demonstrates no internal edema to suggest ischiofemoral impingement. The proximal sciatic neurovascular bundle appears normal adjacent to the hamstring tendons. No free pelvic fluid. Bladder wall thickness is normal. Genitourinary structures and bowel loops appear normal where visualized. IMPRESSION: 1. Mild bilateral hip joint osteoarthritis. No evidence of avascular necrosis of femoral head. No acute fracture or dislocation. Mildly heterogeneous marrow signal throughout bony pelvis likely represent hematopoietic marrow. 2. Distal left gluteus medius and minimus tendinosis with low-grade partial-thickness tear involving distal left gluteus medius tendon extending to musculotendinous junction. No other muscle or tendon signal abnormalities. 3. Suggestion of superior anterior left hip labral tear with adjacent 4 mm perilabral cysts. Dictated by: Yordy Anaya M.D. on 10/30/2023 at 9:35 Approved by: Yordy Anaya M.D. on 10/30/2023 at 9:38
== END ==
LOC: MRI 15:46
PROVIDERS: PCP Family Medicine; Referring Provider Orthopaedic Surgery; Visit Provider Orthopaedic Surgery
DX: M16.0 Bilateral primary osteoarthritis of hip (principal); S76.012A Strain of muscle, fascia and tendon of left hip, initial encounter
CPT/HCPCS: 73721; 74018

== ENCOUNTER → 2024-01-14 08:30 | Outpatient (CLI) | payer MEDICARE, OTHER, SELFPAY ==
[2023-06-09 16:18] VITALS: BMI 35.6
--- NOTE | 2024-01-14 08:32 | DI.US.S_ITS ---
PROCEDURE: US ABDOMEN LIMITED INDICATIONS: EPIGASTRIC ABDOMINAL PAIN TECHNIQUE: Real-time scanning was performed of the abdominal and retroperitoneal organs, with image documentation. COMPARISON: None. FINDINGS: Liver: Liver is mildly enlarged and demonstrates homogeneous in echotexture. There is a 10.0 x 8.4 x 9.6 cm cyst within the left lobe. There is a 2.7 x 1.7 x 3.0 cm cyst within the right lobe. Gallbladder: No gallstone. Small amount of sludge. No pericholecystic fluid or gallbladder wall thickening. Biliary ducts: Intrahepatic bile ducts are non-dilated. Extrahepatic bile duct caliber measures 6 mm. Normal is 6-7 mm or less in diameter, or 10 mm or less post-cholecystectomy. Pancreas: The pancreas is sonographically normal. Miscellaneous: No free abdominal fluid. IMPRESSION: 1. There is a small amount of sludge within the gallbladder. No gallstone. 2. Mild hepatomegaly. 3. Within the left hepatic lobe, there is a cyst that measures up to 10.0 cm. Dictated by: Ulysses Guntre M.D. on 01/14/2024 at 12:38 Approved by: Ulysses Gunter M.D. on 01/14/2024 at 12:47
== END ==
LOC: US 08:31
PROVIDERS: PCP Family Medicine; Referring Provider Internal Medicine; Visit Provider Internal Medicine
DX: K76.89 Other specified diseases of liver (principal); R10.13 Epigastric pain; R16.0 Hepatomegaly, not elsewhere classified
CPT/HCPCS: 76705

== ENCOUNTER → 2024-01-20 10:56 | Outpatient (CLI) | payer MEDICARE, OTHER, SELFPAY ==
[2023-06-09 16:18] VITALS: BMI 35.6
== END ==
PROVIDERS: PCP Family Medicine; Referring Provider Internal Medicine; Visit Provider Internal Medicine
DX: R19.5 Other fecal abnormalities (principal)
CPT/HCPCS: 83993

== ENCOUNTER → 2024-09-07 10:53 | Outpatient (CLI) | payer MEDICARE, OTHER, SELFPAY ==
[2023-06-09 16:18] VITALS: BMI 35.6
--- NOTE | 2024-09-07 10:55 | DI.RAD.S_ITS ---
PROCEDURE: FL BARIUM SWALLOW W AIR COMPARISON: None. INDICATIONS: ESOPHAGEAL DYSPHAGIA FINDINGS: Double-contrast barium swallow was performed with thin and thick liquid. Calibrated barium tablet was also administered. There is normal peristaltic activity identified throughout the esophagus. Minimal single episode of reflux to the distal esophagus is identified. There was 1 episode of slight delayed passage of contrast near the gastroesophageal junction. No mucosal lesions are identified. Calibrated barium tablet passed through the esophagus, gastroesophageal junction into the stomach without delay. IMPRESSION: No visualized abnormal peristaltic activity. Minimal delay of contrast on a single episode near the gastroesophageal junction. Minimal single episode of gastroesophageal reflux. Dictated by: Ayesha Ceballos M.D. on 09/07/2024 at 13:19 Approved by: Ayesha Ceballos M.D. on 09/07/2024 at 13:21
== END ==
PROVIDERS: PCP Family Medicine; Referring Provider Internal Medicine; Visit Provider Internal Medicine
DX: R13.19 Other dysphagia (principal)
CPT/HCPCS: 74221

== ENCOUNTER → 2024-12-02 10:04 | Outpatient (CLI) | payer MEDICARE, OTHER, SELFPAY ==
[2023-06-09 16:18] VITALS: BMI 35.6
--- NOTE | 2024-12-02 10:06 | DI.RAD.S_ITS ---
PROCEDURE: XR FOOT LT 2V INDICATIONS: Pain in left foot TECHNIQUE: Two views of the left foot were acquired. COMPARISON: None. FINDINGS: Bones: Moderate pes planus and hammertoe deformities 1st through 5th digits noted. Joints: Mild degeneration 1st MTP and all interphalangeal joints. Soft tissues: No soft tissue abnormality. IMPRESSION: Chronic findings Dictated by: Larry Jones M.D. on 12/03/2024 at 11:54 Approved by: Larry Jones M.D. on 12/03/2024 at 11:55
== END ==
PROVIDERS: PCP Family Medicine; Referring Provider Family Medicine; Visit Provider Family Medicine
DX: M21.42 Flat foot [pes planus] (acquired), left foot (principal); M20.42 Other hammer toe(s) (acquired), left foot; M79.672 Pain in left foot; M19.072 Primary osteoarthritis, left ankle and foot; G89.29 Other chronic pain
CPT/HCPCS: 73620

== ENCOUNTER → 2025-01-08 16:42 | Outpatient (CLI) | payer MEDICARE, OTHER, SELFPAY ==
[2023-06-09 16:18] VITALS: BMI 35.6
--- NOTE | 2025-01-08 16:43 | DI.MRI.S_ITS ---
PROCEDURE: MR ANKLE LT WO CON INDICATIONS: chronic pain of left heel TECHNIQUE: Noncontrast sagittal T1 spin echo and T2 fast spin echo with fat saturation, axial proton density fast spin echo and T2 fast spin echo with fat saturation, coronal T1 spin echo and T2 fast spin echo with fat saturation through the ankle/hindfoot. COMPARISON: [facility], CR, XR FOOT LT 2V, 12/02/2024, 10:04. FINDINGS: Image quality: Excellent. Bones and joints: [id number] midfoot and hindfoot joint osteoarthritic changes are seen with joint space narrowing, subchondral sclerosis and small marginal osteophyte formation. No fracture or dislocation. No osteochondral injuries of the talar dome. Small amount of tibiotalar joint effusion, no loose bodies. Well-defined plantar and dorsal calcaneal enthesophytes are seen. Mild edema involving posterior aspect of plantar calcaneus at the plantar fascia insertion. Medial structures: The posterior tibialis tendon is mildly thickened at the level of distal talus and talonavicular joint. The flexor digitorum longus, and flexor hallucis longus tendons are intact. The posterior tibial neurovascular bundle appears normal within the tarsal tunnel, without extrinsic mass effect. The deltoid ligament and spring ligament are intact. Lateral structures: The anterior talofibular ligament is mildly thickened. The calcaneofibular, and posterior talofibular ligaments appear intact. More superiorly, the anterior and posterior tibiofibular ligaments appear intact, as is the intermalleolar ligament. The tibiofibular syndesmosis is normal in width at 2 mm or less. The peroneus longus and brevis tendons are thickened with mild surrounding edema at the level of lateral malleolus tip extending to the level of cuboid. The sinus tarsi demonstrates normal fatty signal, without edema, fibrosis, or cyst formation. Anterior structures: The tibialis anterior, extensor hallucis longus, and extensor digitorum longus tendons appear intact. The dorsal talonavicular ligament appears intact. Posterior and plantar structures: Distal Achilles tendinosis at its posterior calcaneal insertion is seen. No Achilles tendon rupture. Thickened medial band of plantar fascia with surrounding soft tissue edema and intrasubstance T2 hyperintense signal at its plantar calcaneal insertion. No abductor digiti quinti muscle atrophy to suggest Bone neuropathy. IMPRESSION: 1. Well-defined plantar and dorsal calcaneal enthesophytes. Edema involving plantar aspect of posterior calcaneus near plantar fascia insertion with thickened medial band of plantar fascia and intrasubstance T2 hyperintense signal consistent with plantar fasciitis and low-grade partial-thickness tear involving plantar fascia. 2. Distal Achilles tendinosis. No Achilles tendon rupture. 3. Mild to moderate midfoot and hindfoot joint osteoarthritis. No fracture or dislocation. No osteochondral injuries of talar dome. 4. Mild tendinosis involving posterior tibialis tendon at the level of distal talus and talonavicular joint. Tendinosis also seen involving peroneus tendons at the level of lateral malleolus extending to the level of cuboid. 5. Low-grade ATFL sprain. No ankle ligament rupture. Dictated by: Yordy Anaya M.D. on 01/12/2025 at 8:27 Approved by: Yordy Anaya M.D. on 01/12/2025 at 8:35
== END ==
PROVIDERS: PCP Family Medicine; Referring Provider Family Medicine; Visit Provider Family Medicine
DX: S93.492A Sprain of other ligament of left ankle, initial encounter (principal); M19.072 Primary osteoarthritis, left ankle and foot; M77.32 Calcaneal spur, left foot; M72.2 Plantar fascial fibromatosis; M79.672 Pain in left foot; G89.29 Other chronic pain; M67.972 Unspecified disorder of synovium and tendon, left ankle and foot
CPT/HCPCS: 73721

== ENCOUNTER 2025-02-23 07:03 | Day surgery (SDC) | payer MEDICARE, OTHER, SELFPAY ==
[2023-06-09 16:18] VITALS: BMI 35.6
[2025-02-17 10:54] VITALS: BMI 36.5
[2025-02-23] VITALS (7 sets, daily range): BP systolic 121–162; BP diastolic 56–79; PULSE 50–63; RESP 12–19; TEMP 36.8–37.5; O2SAT 93–98; BMI 36.5
[2025-02-23] MEDS: ACETAMINOPHEN 325 MG TABLET 975 MG PO (07:44)
--- NOTE | 2025-02-23 07:51 | PM.HP.IH.1 ---
History of Present Illness History of Present Illness Date Patient Seen: 02/23/25 Time Patient Seen: 07:51 Chief complaint: Elevated PSA Narrative: 69 y/o M presents to OR to have a TRUS prostate biopsy performed under anesthesia. Briefly, he currently is managed with Alfuzosin 10mg daily. His IPSS was 21/35 w/ a QoL of 3/6 in Apr. He admits to a medium strength urinary stream, urinary intermittency/frequency and nocturia up to 4 times per night. He otherwise denies the sensation of incomplete bladder emptying, urinary hesitancy/urgency. His Uroflow/PVR was notable for a VV of 330 cc, Qmax of 10.9 cc/s, Qavg of 4.3 cc/s and a PVR of 35 cc. His curve was otherwise flat and consistent w/ obstruction. His cystoscopy and TRUS prostate in Jan were notable for coaptating lateral prostatic lobes w/o an intravesical median lobe and a TRUS volume of 49 cc. Regarding his elevated PSA, he has a positive FH of prostate cancer (dad, diagnosed in his 60's, treated with ADT + XRT). His LOVE was benign in Urology clinic in Apr (noted to have asymmetry, R>L). He had a prostate MRI in Jan that was notable for a 41g prostate and a 1.1cm PIRADS 4 lesion in the right apex peripheral zone. Review of his PSA's: 6.8 w/ %free of 12 (01/08), 6.3 w/ %free of 10 (10/09), 4.29 (04/09), 3.76 (10/08). 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 Status: Never smoker alcohol intake: never Meds Home Medications and Allergies Home Medications ?Medication ?Instructions ?Recorded ?Confirmed ?Type alfuzosin 10 mg tablet,extended 10 mg PO Q OTHER DAY ##0 07/02/16 02/23/25 History release 24 hr omeprazole 20 mg capsule,delayed 20 mg PO QDAY ##0 07/02/16 02/23/25 History release Resmed Airsense 10 CPAP #1 ea 10/01/18 01/18/25 History hydrochlorothiazide 25 mg tablet 25 mg PO DAILY 04/18/21 02/23/25 History amlodipine 5 mg tablet 5 mg PO DAILY 08/01/21 02/23/25 History losartan 100 mg tablet 100 mg PO DAILY 06/01/23 02/23/25 History atorvastatin 20 mg tablet (Lipitor) 20 mg PO .QOD #0 tabs 07/11/23 01/18/25 History famotidine-Ca carb-mag hydrox 10 1 tab PO .QOD 07/11/23 01/18/25 History mg-800 mg-165 mg chewable tablet (Pepcid Complete) gabapentin 300 mg capsule 300 mg PO DAILY 04/22/24 02/23/25 History levofloxacin 750 mg tablet 750 mg PO DAILY #3 tabs 02/17/25 02/23/25 Rx Allergies Allergy/AdvReac Type Severity Reaction Status Date / Time somatostatin AdvReac Mild Verified 02/23/25 07:37 Review of Systems Review of Systems Narrative: CONSTITUTIONAL: Denies weight loss, fevers, chills. HEENT: Denies change in vision, hearing. RESP: Denies SOB, cough. CV: Denies palpations, CP. GI: Denies abdominal pain, nausea, vomiting, diarrhea. : Denies dysuria, hematuria, inability to void. MSK: Denies myalgia, joint pain. SKIN: Denies rash, pruritus. NEURO: Denies headache, syncope. PSYCH: Denies recent change in mood, anxiety, depression. Exam Vital Signs (past 8 hours): - 02/23/25 07:28 Temperature 98.5 F Pulse Rate 59 L Respiratory Rate 12 Blood Pressure 138/71 Pulse Oximetry 96 Oxygen Delivery Method Room Air Oxygen Delivery Method Room Air Narrative Exam Narrative: GEN: Alert and oriented X3. No acute distress. Well-nourished. EYES: PERRLA, EOMI. HENT: Moist mucus membranes, no scleral icterus, normal neck ROM. RESP: Unlabored breathing, equal rise and fall of chest bilaterally, no cyanosis appreciated. CV: No peripheral edema, unremarkable heart rate. ABD: Soft, non-tender, non-distended, no palpable masses. EXT: No edema, clubbing or cyanosis. SKIN: No rashes or lesions. NEURO: No focal neurologic deficits, CN II-XII grossly intact. PSYCH: Cooperative, appropriate mood and affect. Assessment & Plan Assessment and plan (1) Elevated PSA: Status: Acute Plan: 69 y/o M w/ an elevated PSA, currently at its peak value of 6.8, in the setting of a positive FH of prostate cancer and a LOVE noting R>L asymmetry (otherwise benign). Discussed that his prostate MRI was concerning for a PIRADS 4 lesion. Discussed elevated PSA in detail and that an elevated PSA value does not represent cancer and that it can be elevated for a multitude of reasons (recent UTI, hawkins catheterization, urinary obstruction, multiple ejaculations, colonoscopy, etc...). Also discussed that a TRUS prostate biopsy may not always identify prostate cancer that is present as it is a small sampling of the prostate gland and small foci of cancer may be missed. Lastly, discussed that some men may require multiple biopsies over several years in order to properly diagnose their prostate cancer. Discussed elevated PSA in detail and that an elevated PSA value does not represent cancer and that it can be elevated for a multitude of reasons (recent UTI, hawkins catheterization, urinary obstruction, multiple ejaculations, colonoscopy, etc...). Also discussed that a TRUS prostate biopsy may not always identify prostate cancer that is present as it is a small sampling of the prostate gland and small foci of cancer may be missed. Lastly, discussed that some men may require multiple biopsies over several years in order to properly diagnose their prostate cancer. Discussed the risks of the procedure to include but not limited to pain, bleeding, infection, blood in the stool for several weeks, blood and/or blood clots within the urine for several weeks as well as bloody ejaculate for several months. Up to 1-2% of men may get an infection from their biopsy that is severe enough that they require admission to the hospital and administration of IV antibiotics. To mitigate this risk, he will use a bowel prep the night before and the morning of the procedure as well as take an antibiotic the morning before, the morning of and the morning after his biopsy. His informed consent was obtained this morning. (2) BPH loc w urin obs/LUTS: Status: Acute Plan: Noted to have symptoms consistent w/ BPH and LUTS that are currently managed w/ Alfuzosin 10mg daily. Discussed treatment options to include observation vs continuing with his Alfuzosin 10mg daily. Discussed mechanism of action and expected side effects to include orthostatic hypotension, nasal congestion and retrograde ejaculation. Also discussed the possible addition of Finasteride 5mg daily (discussed possible side effects to include decreased libido, worsening erectile dysfunction, loss of ejaculate volume as well as painful breast development or nipple tenderness), or a lower urinary tract evaluation prior to a bladder outlet procedure. Discussed that his cystoscopy and TRUS prostate were notable for coaptating lateral prostatic lobes w/o an intravesical median lobe and a TRUS volume of 49g. At this time, he would prefer to continue with Alfuzosin 10mg daily and will consider an Aquablation procedure in the future. Time-Based Coding :: [TOTAL MINUTES] spent with patient and on the chart (including review of chart, obtaining history, exam, reviewing outside data, placing orders, documenting exam and treatment plan, and counseling patient) on [DATE]. [employer] Document charge(s): Yes Charge Codes Inpatient/observation care including admit and discharge same day: [id number]
--- NOTE | 2025-02-23 08:41 | SUR.OPER ---
Lateral (LEFT SIDE DOWN) on stretcher, head on pillow
[2025-02-23] MEDS: LIDOCAINE 1% 20 ML INJ (08:56)
[2025-02-23] MEDS: LACTATED RINGERS 1,000 ML 42 ML IV (09:00)
--- NOTE | 2025-02-23 09:08 | PM.OP.1 ---
Operative Date/Time/Diagnoses Date of procedure: 02/23/25 Time of procedure: 08:45 Pre-op diagnosis: Elevated PSA Post-op diagnosis: same Procedure & Clinicians Procedure: Transrectal ultrasound guided prostate biopsy Same procedure(s) as scheduled: Yes Indications: 69 y/o M w/ an elevated PSA, currently at its peak value of 6.8, in the setting of a positive FH of prostate cancer and a LOVE noting R>L asymmetry (otherwise benign). Discussed that his prostate MRI was concerning for a PIRADS 4 lesion. Discussed elevated PSA in detail and that an elevated PSA value does not represent cancer and that it can be elevated for a multitude of reasons (recent UTI, hawkins catheterization, urinary obstruction, multiple ejaculations, colonoscopy, etc...). Also discussed that a TRUS prostate biopsy may not always identify prostate cancer that is present as it is a small sampling of the prostate gland and small foci of cancer may be missed. Lastly, discussed that some men may require multiple biopsies over several years in order to properly diagnose their prostate cancer. Discussed the risks of the procedure to include but not limited to pain, bleeding, infection, blood in the stool for several weeks, blood and/or blood clots within the urine for several weeks as well as bloody ejaculate for several months. Up to 1-2% of men may get an infection from their biopsy that is severe enough that they require admission to the hospital and administration of IV antibiotics. Surgeon: Dallin Sanders Click Yes if Unassisted: Yes Anesthesia Type: General Operative Notes Findings: 46g prostate Closure Type: not applicable Specimen(s): other (prostate biopsy) Applied: none Estimated Blood Loss (mL): 2 Blood products transfused: none Procedure in detail: Transrectal Ultrasound of the Prostate with Needle Biopsy: [id number] Indication: 69 y/o M w/ an elevated PSA and a concerning PIRADS 4 lesion on his prostate MRI. Following informed consent and induction of anesthesia, he was transitioned into the left lateral decubitus position. The ultrasound probe was then coated in lubrication and gently inserted into his rectum. A total of 20cc of 1% Lidocaine was used for local anesthetic throughout the procedure. Transrectal US images of his prostate were then performed and a volume of 46 cc was calculated. A total of 12 biopsies were taken from the prostate and submitted as six different pathologic specimens (right base, right mid, right apex, left base, left mid, left apex). An additional 3 biopsies were than taken from the aforementioned PIRADS 4 lesion and labeled as Lesion 1. Hemostasis was evaluated at the end of the procedure and noted to be excellent. He tolerated the procedure well without any complications and the ultrasound probe was gently removed from his rectum. Complications: none Post-operative Condition: stable Disposition: PACU Plan for aftercare: Discharge home from PACU. Will coordinate an appointment in 2-3 business weeks to return to Urology clinic to discuss his biopsy results.
--- NOTE | 2025-02-23 10:08 | SUR.PREOP ---
Assisted pt to bathroom with w/c @ 1000; pt only able to pass approx 15cc blood. Dr Sanders at bedside, d/w him plan of care; pt with 2 options: stay in phase 2 until able to void or go home, drink lots of fluids and call office by 2 pm if unable to void at home. Pt feels he will be more relaxed and more able to urinate at home; updated plan with pt's Ashley. 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
== END 2025-02-23 10:25 | disposition home or self-care (01) ==
PROVIDERS: PCP Family Medicine; Referring Provider Urology; Visit Provider Urology
PROC: 0VJ43ZZ Inspection of Prostate and Seminal Vesicles, Percutaneous Approach (ICD-10-PCS; CPT 55876; principal; 2025-02-23 08:45)
DX: C61 Malignant neoplasm of prostate (principal); R97.20 Elevated prostate specific antigen [PSA]; N40.1 Benign prostatic hyperplasia with lower urinary tract symptoms; Z80.42 Family history of malignant neoplasm of prostate; R35.0 Frequency of micturition; R35.1 Nocturia
CPT/HCPCS: 55700; 76872; 76942; J2405; J2704

== ENCOUNTER → 2025-06-11 11:10 | Outpatient (CLI) | payer MEDICARE, OTHER, SELFPAY ==
[2023-06-09 16:18] VITALS: BMI 35.6
--- NOTE | 2025-06-11 11:12 | DI.RAD.S_ITS ---
PROCEDURE: XR CHEST 2V INDICATIONS: LYMPH NODE SWELLING TECHNIQUE: 2 views of the chest were acquired. COMPARISON: [facility], CR, XR CHEST 1V, 06/04/2023, 7:53. [facility], CR, XR CHEST 1V, 06/01/2023, 21:57. FINDINGS: Surgical changes and devices: None. Lungs and pleura: Lungs are clear. No pleural effusions or pneumothorax. Mediastinum: Mediastinal contours are normal. Heart size is normal. Bones and chest wall: No suspicious bony abnormalities. Soft tissues appear unremarkable. IMPRESSION: No acute cardiopulmonary abnormality is seen. Dictated by: Bony Box M.D. on 06/12/2025 at 14:51 Approved by: Bony Box M.D. on 06/12/2025 at 14:51
== END ==
PROVIDERS: PCP Family Medicine; Referring Provider Family Medicine; Visit Provider Family Medicine
DX: R59.0 Localized enlarged lymph nodes (principal)
CPT/HCPCS: 71046